=== PATIENT | male | born 1940 | race Caucasian/White ===

== ENCOUNTER → 2018-02-24 | Outpatient (CLI) | payer OTHER ==
[~2018-02-24] MED LIST: DICLOFEN; DIGOPOW2; LISIPOW; OMEPRAZOLE; PRADAXA; TAMSULOSIN; VICODIN
[2018-02-24 10:06] LABS: Hemoglobin 13.6 g/dL (13.5-17.5); Mean Corpuscular Hemoglobin 33.4 pg (28.0-32.0); Mean Corpuscular Hgb Conc. 33.9 g/dL (32.0-36.0); Mean Corpuscular Volume 98.7 fL (80.0-100.0); Platelet Count (auto) 85 10^3/uL (140-450); Red Blood Cells 4.06 10^6/uL (4.5-5.90); Red Cell Distribution Width 14.6 % (11.8-14.3); White Blood Cell 4.1 10^3/uL (4.4-10.8)
[2018-02-24 10:13] LABS: Band Neutrophils % (manual) 0; Basophils % (manual) 0 (0.0-2.0); Blast Cells 0; Eosinophils % (manual) 0 (0-7); Metamyelocytes % 0; Myelocytes % 0; Promyelocytes % 0; Reactive Lymphocytes 0
[2018-02-24 10:14] LABS: Urine Bacteria NONE SEEN /hpf (None Seen); Urine Blood Negative /uL (Negative); Urine Specific Gravity 1.013 (1.001-1.035); Urine WBC 2 /hpf (0 - 3)
[2018-02-24 10:32] LABS: Lymphocytes % (manual) 22 (10.0-50.0); Monocytes % (manual) 15 (0-12)
[2018-02-24 10:34] LABS: Albumin 3.9 g/dL (3.4-5.0); Calcium 9.3 mg/dL (8.5-10.1)
[2018-02-24 10:41] LABS: Bilirubin, Total 1.2 mg/dL (0.2-1.0); Total Protein 8.2 g/dL (6.4-8.2)
[2018-02-24 11:20] LABS: Folate (Folic Acid) 16.54 ng/mL (5.38-24)
== END | disposition home or self-care (01) ==
LOC: LAB 09:01
PROVIDERS: ATTEND Nurse Practitioner
DX: N39.0 Urinary tract infection, site not specified (principal); E78.5 Hyperlipidemia, unspecified
CPT/HCPCS: 36415; 80053; 80061; 81001; 82306; 82607; 82746; 85007; 85027

== ENCOUNTER → 2018-05-03 | Outpatient (CLI) | payer OTHER, MEDICARE | END | disposition home or self-care (01) | LOC: LAB 14:40 | PROVIDERS: ATTEND Internal Medicine | DX: D69.6 Thrombocytopenia, unspecified (principal) | CPT/HCPCS: 86225 ==

== ENCOUNTER → 2018-05-05 | Outpatient (CLI) | payer OTHER, MEDICARE ==
[2018-05-05 16:01] LABS: BUN/Creatinine Ratio 19.1; Calcium 8.3 mg/dL (8.5-10.1); Potassium 3.7 mmol/L (3.5-5.1)
== END | disposition home or self-care (01) ==
LOC: LAB 15:33
PROVIDERS: ATTEND Urology
DX: R97.20 Elevated prostate specific antigen [PSA] (principal)
CPT/HCPCS: 36415; 80048; 84154

== ENCOUNTER → 2018-08-08 | Day surgery (SDC) | payer OTHER ==
[2018-08-04 11:52] LABS: Basophils # (auto) 0 uL; Basophils % (auto) 0.2 % (0.0-2.0); Eosinophils # (auto) 0 uL; Hematocrit 40.5 % (41.0-53.0); Hemoglobin 13.7 g/dL (13.5-17.5); Lymphocytes # (auto) 0.8 uL; Lymphocytes % (auto) 19.3 % (10.0-50.0); Mean Corpuscular Hemoglobin 33.3 pg (28.0-32.0); Mean Corpuscular Hgb Conc. 33.8 g/dL (32.0-36.0); Mean Corpuscular Volume 98.4 fL (80.0-100.0); Monocytes # (auto) 0.7 uL; Monocytes % (auto) 17.1 % (0.0-12.0); Neutrophils # (auto) 2.4 uL; Neutrophils % (auto) 62.4 % (37.0-80.0); Nucleated Red Blood Cells % 0.1 %; Platelet Count (auto) 93 10^3/uL (140-450); Red Blood Cells 4.12 10^6/uL (4.5-5.90); Red Cell Distribution Width 15.6 % (11.8-14.3); Urine Bacteria NONE SEEN /hpf (None Seen); Urine Blood TRACE /uL (Negative); Urine Mucus FEW (None Seen); Urine Specific Gravity 1.014 (1.001-1.035); Urine WBC <1 /hpf (0 - 3); White Blood Cell 3.9 10^3/uL (4.4-10.8)
[2018-08-04 11:56] LABS: INR 1.07 (0.9-1.15); Partial Thromboplastin Time 30.1 sec (23.78-33.04); Prothrombin Time 11.4 sec (9.27-12.13)
[2018-08-04 12:08] LABS: Albumin 4.1 g/dL (3.4-5.0); Potassium 3.9 mmol/L (3.5-5.1)
[2018-08-04 12:11] LABS: BUN/Creatinine Ratio 18.1; Bilirubin, Total 1.1 mg/dL (0.2-1.0); Total Protein 7.8 g/dL (6.4-8.2)
[~2018-08-08] VITALS: Ht 170.2 cm; Wt 90.7 kg
[~2018-08-08] MED LIST changes: +CIPROFLOXACIN 400MG/200ML 200 ML IV ONE; +DABI150C PO; -DICLOFEN; -DIGOPOW2; +HCTZ 25 MG TAB PO ONE; +HYDR25TA4 PO; +HYDROmorphone HCL 2 MG/ML VL IV PRN; +LABETALOL HCL 5 MG/ML ML 20ML VIAL IV ONE; +LISI-646 PO; -LISIPOW; +MAGN200T PO; +NITR0.2D12 TD; +NITROGLYCERIN 0.2MG/HR TOPICAL PATCH TD ONE; +OMEP20TA PO; -OMEPRAZOLE; +ONDANSETRON HCL 4 MG/2 ML VIAL IV ONE; -PRADAXA; +PROPOFOL 10 MG/ML 20 ML IV ONE; +TAMS0.4C36 PO; -TAMSULOSIN; -VICODIN; +ePHEDrine SULFATE 50 MG/ML AMP IV PRN; +fentaNYL CITRATE 100 MCG/2 ML VL ONE
[2018-08-08] MEDS: hydrALAZINE HCL 20 MG/ML VL IV PRN ×3 (14:04→14:51)
[2018-08-08 15:57] VITALS: BP 141/84
== END | disposition home or self-care (01) ==
LOC: SUR 06:58
PROVIDERS: ATTEND Urology
DX: N40.1 Benign prostatic hyperplasia with lower urinary tract symptoms (principal); M79.9 Soft tissue disorder, unspecified; G47.30 Sleep apnea, unspecified; I48.91 Unspecified atrial fibrillation; M19.90 Unspecified osteoarthritis, unspecified site; J44.9 Chronic obstructive pulmonary disease, unspecified; E66.9 Obesity, unspecified; H26.9 Unspecified cataract; Z68.31 Body mass index [BMI] 31.0-31.9, adult
CPT/HCPCS: 36415; 52601; 80053; 81001; 85025; 85610; 85730; 88305; 88342; J0360; J0744; J2704; J3010

== ENCOUNTER 2018-08-21 23:47 | Emergency (ER) | payer OTHER ==
[~2018-08-21] VITALS: Ht 172.7 cm; Wt 90.7 kg
[~2018-08-21 23:47] MED LIST changes: -CIPROFLOXACIN 400MG/200ML 200 ML IV ONE; -HCTZ 25 MG TAB PO ONE; -HYDROmorphone HCL 2 MG/ML VL IV PRN; -LABETALOL HCL 5 MG/ML ML 20ML VIAL IV ONE; -NITROGLYCERIN 0.2MG/HR TOPICAL PATCH TD ONE; -ONDANSETRON HCL 4 MG/2 ML VIAL IV ONE; -PROPOFOL 10 MG/ML 20 ML IV ONE; -ePHEDrine SULFATE 50 MG/ML AMP IV PRN; -fentaNYL CITRATE 100 MCG/2 ML VL ONE
[2018-08-22] VITALS: BP 103/64
== END 2018-08-22 01:51 | disposition home or self-care (01) ==
LOC: MERGE 23:53 → ER 23:53
DX: T83.011A Breakdown (mechanical) of indwelling urethral catheter, initial encounter (principal); N99.89 Other postprocedural complications and disorders of genitourinary system; Y92.89 Other specified places as the place of occurrence of the external cause

== ENCOUNTER → 2018-09-05 | Outpatient (CLI) | payer OTHER ==
[2018-09-05 10:50] LABS: Hematocrit 35.9 % (41.0-53.0); Hemoglobin 12.4 g/dL (13.5-17.5); Mean Corpuscular Hemoglobin 33.2 pg (28.0-32.0); Mean Corpuscular Hgb Conc. 34.5 g/dL (32.0-36.0); Mean Corpuscular Volume 96.1 fL (80.0-100.0); Platelet Count (auto) 108 10^3/uL (140-450); Red Blood Cells 3.73 10^6/uL (4.5-5.90); Red Cell Distribution Width 14.4 % (11.8-14.3); White Blood Cell 3.4 10^3/uL (4.4-10.8)
[2018-09-05 10:59] LABS: Band Neutrophils % (manual) 0; Basophils % (manual) 0 (0.0-2.0); Eosinophils % (manual) 0 (0-7)
[2018-09-05 11:00] LABS: Blast Cells 0; Metamyelocytes % 0; Myelocytes % 0; Promyelocytes % 0; Reactive Lymphocytes 0
[2018-09-05 11:15] LABS: Urine Bacteria NONE SEEN /hpf (None Seen); Urine Blood 2+ /uL (Negative); Urine Specific Gravity 1.019 (1.001-1.035); Urine WBC 67 /hpf (0 - 3)
[2018-09-05 11:29] LABS: Lymphocytes % (manual) 22 (10.0-50.0); Monocytes % (manual) 8 (0-12)
[2018-09-05 11:50] LABS: Potassium 3.7 mmol/L (3.5-5.1)
[2018-09-05 11:56] LABS: Albumin 3.8 g/dL (3.4-5.0); BUN/Creatinine Ratio 26.3; Calcium 8.9 mg/dL (8.5-10.1); Total Protein 7.4 g/dL (6.4-8.2)
[2018-09-05 11:58] LABS: Follicle Stimulating Hormone 13.72 IU/L (1.4-18.1); Prostate Specific Antigen 0.92 ng/mL (0.0-4.0)
== END | disposition home or self-care (01) ==
LOC: LAB 10:30
PROVIDERS: ATTEND Nurse Practitioner
DX: E78.5 Hyperlipidemia, unspecified (principal)
CPT/HCPCS: 36415; 80053; 80061; 81001; 82306; 82607; 83001; 83036; 84153; 84443; 84550; 85007; 85027

== ENCOUNTER → 2018-09-12 | Outpatient (CLI) | payer OTHER ==
[2018-09-12 10:00] LABS: Basophils # (auto) 0 uL; Basophils % (auto) 0.3 % (0.0-2.0); Eosinophils # (auto) 0.1 uL; Eosinophils % (auto) 1.5 % (0.0-7.0); Hematocrit 37.2 % (41.0-53.0); Hemoglobin 12.8 g/dL (13.5-17.5); Lymphocytes # (auto) 0.7 uL; Lymphocytes % (auto) 21.1 % (10.0-50.0); Mean Corpuscular Hemoglobin 33.2 pg (28.0-32.0); Mean Corpuscular Hgb Conc. 34.4 g/dL (32.0-36.0); Mean Corpuscular Volume 96.5 fL (80.0-100.0); Monocytes # (auto) 0.6 uL; Monocytes % (auto) 15.9 % (0.0-12.0); Neutrophils # (auto) 2.1 uL; Neutrophils % (auto) 61.2 % (37.0-80.0); Platelet Count (auto) 92 10^3/uL (140-450); Red Blood Cells 3.86 10^6/uL (4.5-5.90); Red Cell Distribution Width 14.3 % (11.8-14.3); White Blood Cell 3.5 10^3/uL (4.4-10.8)
[2018-09-12 10:32] LABS: Albumin 3.9 g/dL (3.4-5.0); Calcium 8.9 mg/dL (8.5-10.1); Potassium 4.1 mmol/L (3.5-5.1)
[2018-09-12 10:49] LABS: BUN/Creatinine Ratio 22.9; Bilirubin, Total 0.9 mg/dL (0.2-1.0); Total Protein 7.6 g/dL (6.4-8.2)
== END | disposition home or self-care (01) ==
LOC: LAB 09:32
PROVIDERS: ATTEND Internal Medicine
DX: D69.1 Qualitative platelet defects (principal)
CPT/HCPCS: 36415; 80053; 83615; 85025

== ENCOUNTER → 2018-12-06 | Outpatient (CLI) | payer OTHER, MEDICARE ==
[~2018-12-06] MED LIST changes: -DABI150C PO; +DABI150C5 PO; -NITR0.2D12 TD; +NITR0.2D3 TD
== END | disposition home or self-care (01) ==
LOC: LAB 15:19
PROVIDERS: ATTEND Urology
DX: R97.20 Elevated prostate specific antigen [PSA] (principal)
CPT/HCPCS: 84153

== ENCOUNTER → 2019-01-24 | Outpatient (CLI) | payer OTHER, MEDICARE ==
[2019-01-24 13:46] LABS: Basophils # (auto) 0 uL; Basophils % (auto) 0.5 % (0.0-2.0); Eosinophils # (auto) 0 uL; Eosinophils % (auto) 1.1 % (0.0-7.0); Hematocrit 41.1 % (41.0-53.0); Hemoglobin 14.3 g/dL (13.5-17.5); Lymphocytes # (auto) 0.9 uL; Lymphocytes % (auto) 22.5 % (10.0-50.0); Mean Corpuscular Hemoglobin 33.3 pg (28.0-32.0); Mean Corpuscular Hgb Conc. 34.7 g/dL (32.0-36.0); Monocytes # (auto) 0.6 uL; Monocytes % (auto) 15.6 % (0.0-12.0); Neutrophils # (auto) 2.4 uL; Neutrophils % (auto) 60.3 % (37.0-80.0); Platelet Count (auto) 96 10^3/uL (140-450); Red Blood Cells 4.29 10^6/uL (4.5-5.90)
[2019-01-24 14:10] LABS: Albumin 4.2 g/dL (3.4-5.0); Calcium 9.1 mg/dL (8.5-10.1); Potassium 3.9 mmol/L (3.5-5.1)
[2019-01-24 14:13] LABS: BUN/Creatinine Ratio 11.9; Bilirubin, Total 1.2 mg/dL (0.2-1.0); Total Protein 8.1 g/dL (6.4-8.2)
== END | disposition home or self-care (01) ==
LOC: LAB 13:35
PROVIDERS: ATTEND Internal Medicine
DX: D64.9 Anemia, unspecified (principal); N40.0 Benign prostatic hyperplasia without lower urinary tract symptoms
CPT/HCPCS: 36415; 80053; 83615; 85025

== ENCOUNTER → 2019-02-07 | Outpatient (CLI) | payer MEDICARE, OTHER ==
[2019-02-07 11:18] LABS: Hematocrit 40.3 % (41.0-53.0); Hemoglobin 13.7 g/dL (13.5-17.5); Mean Corpuscular Hemoglobin 33.2 pg (28.0-32.0); Mean Corpuscular Volume 97.8 fL (80.0-100.0); Platelet Count (auto) 84 10^3/uL (140-450); Red Blood Cells 4.12 10^6/uL (4.5-5.90); Red Cell Distribution Width 15.3 % (11.8-14.3); White Blood Cell 3.4 10^3/uL (4.4-10.8)
[2019-02-07 11:22] LABS: Basophils % (manual) 0 (0.0-2.0); Blast Cells 0; Metamyelocytes % 0; Myelocytes % 0; Promyelocytes % 0; Reactive Lymphocytes 0
[2019-02-07 11:27] LABS: Potassium 3.9 mmol/L (3.5-5.1)
[2019-02-07 11:35] LABS: Albumin 3.9 g/dL (3.4-5.0); BUN/Creatinine Ratio 13.9; Bilirubin, Total 1.7 mg/dL (0.2-1.0); Calcium 8.9 mg/dL (8.5-10.1); Total Protein 7.8 g/dL (6.4-8.2)
[2019-02-07 11:42] LABS: Ferritin 85.5 ng/mL (10-322)
[2019-02-07 11:43] LABS: Folate (Folic Acid) 20.41 ng/mL (5.38-24)
[2019-02-07 12:57] LABS: Band Neutrophils % (manual) 1; Eosinophils % (manual) 1 (0-7); Lymphocytes % (manual) 18 (10.0-50.0); Monocytes % (manual) 14 (0-12)
== END | disposition home or self-care (01) ==
LOC: LAB 10:19
PROVIDERS: ATTEND Internal Medicine Hematology & Oncology
DX: D69.6 Thrombocytopenia, unspecified (principal)
CPT/HCPCS: 36415; 80053; 82607; 82728; 82746; 83540; 83550; 83615; 85007; 85027

== ENCOUNTER → 2019-02-28 | Outpatient (CLI) | payer OTHER, MEDICARE ==
[2019-02-28 15:00] LABS: Basophils # (auto) 0 uL; Basophils % (auto) 0.6 % (0.0-2.0); Eosinophils # (auto) 0.1 uL; Eosinophils % (auto) 1.1 % (0.0-7.0); Hematocrit 38.3 % (41.0-53.0); Hemoglobin 12.9 g/dL (13.5-17.5); Lymphocytes # (auto) 0.9 uL; Lymphocytes % (auto) 15.3 % (10.0-50.0); Mean Corpuscular Hemoglobin 33.4 pg (28.0-32.0); Mean Corpuscular Hgb Conc. 33.8 g/dL (32.0-36.0); Mean Corpuscular Volume 98.9 fL (80.0-100.0); Monocytes # (auto) 0.9 uL; Monocytes % (auto) 14.1 % (0.0-12.0); Neutrophils # (auto) 4.3 uL; Neutrophils % (auto) 68.9 % (37.0-80.0); Platelet Count (auto) 110 10^3/uL (140-450); Red Blood Cells 3.87 10^6/uL (4.5-5.90); Red Cell Distribution Width 15.1 % (11.8-14.3); White Blood Cell 6.2 10^3/uL (4.4-10.8)
[2019-02-28 15:35] LABS: Potassium 3.7 mmol/L (3.5-5.1)
[2019-02-28 15:44] LABS: Albumin 3.6 g/dL (3.4-5.0); BUN/Creatinine Ratio 12.6; Bilirubin, Total 0.8 mg/dL (0.2-1.0); Calcium 8.5 mg/dL (8.5-10.1); Total Protein 7.5 g/dL (6.4-8.2)
== END | disposition home or self-care (01) ==
LOC: LAB 13:54
PROVIDERS: ATTEND Internal Medicine
DX: D69.6 Thrombocytopenia, unspecified (principal)
CPT/HCPCS: 36415; 80053; 83615; 85025

== ENCOUNTER → 2019-05-22 | Outpatient (CLI) | payer OTHER ==
[2019-05-22 11:06] LABS: Basophils # (auto) 0 uL; Basophils % (auto) 0.4 % (0.0-2.0); Eosinophils # (auto) 0 uL; Eosinophils % (auto) 0.9 % (0.0-7.0); Hematocrit 38.7 % (41.0-53.0); Hemoglobin 13.2 g/dL (13.5-17.5); Lymphocytes # (auto) 0.8 uL; Lymphocytes % (auto) 19.9 % (10.0-50.0); Mean Corpuscular Hemoglobin 33.4 pg (28.0-32.0); Mean Corpuscular Hgb Conc. 34.2 g/dL (32.0-36.0); Mean Corpuscular Volume 97.6 fL (80.0-100.0); Monocytes # (auto) 0.6 uL; Neutrophils # (auto) 2.5 uL; Neutrophils % (auto) 63.8 % (37.0-80.0); Nucleated Red Blood Cells % 0.1 %; Platelet Count (auto) 83 10^3/uL (140-450); Red Blood Cells 3.97 10^6/uL (4.5-5.90); Red Cell Distribution Width 14.7 % (11.8-14.3); White Blood Cell 3.9 10^3/uL (4.4-10.8)
[2019-05-22 11:30] LABS: Potassium 3.6 mmol/L (3.5-5.1)
[2019-05-22 11:44] LABS: Albumin 4.2 g/dL (3.4-5.0); BUN/Creatinine Ratio 18.8; Bilirubin, Total 1.3 mg/dL (0.2-1.0); Calcium 9.2 mg/dL (8.5-10.1); Total Protein 8.1 g/dL (6.4-8.2)
== END | disposition home or self-care (01) ==
LOC: LAB 09:42
PROVIDERS: ATTEND Internal Medicine
DX: D69.6 Thrombocytopenia, unspecified (principal)
CPT/HCPCS: 36415; 80053; 85025

== ENCOUNTER 2019-05-24 09:01 | Emergency (ER) | payer MEDICARE, OTHER ==
[~2019-05-24] VITALS: Ht 172.7 cm; Wt 79.4 kg
[2019-05-24] MEDS: cloNIDine HCL 0.1 MG TAB ONE ×2 (09:21→09:25)
[2019-05-24] MEDS ORDERED: cloNIDine HCL 0.1 MG TAB PO ONE (09:30)
[2019-05-24 09:55] LABS: Basophils # (auto) 0 uL; Basophils % (auto) 0.4 % (0.0-2.0); Eosinophils # (auto) 0 uL; Eosinophils % (auto) 0.5 % (0.0-7.0); Hematocrit 40.5 % (41.0-53.0); Hemoglobin 13.9 g/dL (13.5-17.5); Lymphocytes # (auto) 0.8 uL; Lymphocytes % (auto) 17.9 % (10.0-50.0); Mean Corpuscular Hemoglobin 33.4 pg (28.0-32.0); Mean Corpuscular Hgb Conc. 34.4 g/dL (32.0-36.0); Mean Corpuscular Volume 97.2 fL (80.0-100.0); Monocytes # (auto) 0.6 uL; Monocytes % (auto) 13.5 % (0.0-12.0); Neutrophils # (auto) 3.1 uL; Neutrophils % (auto) 67.7 % (37.0-80.0); Nucleated Red Blood Cells % 0.1 %; Platelet Count (auto) 83 10^3/uL (140-450); Red Blood Cells 4.16 10^6/uL (4.5-5.90); Red Cell Distribution Width 14.8 % (11.8-14.3); White Blood Cell 4.5 10^3/uL (4.4-10.8)
[2019-05-24 10:14] LABS: Albumin 4.4 g/dL (3.4-5.0); Anion Gap 3 (5-15); Blood Urea Nitrogen 23 mg/dL (7-18); Calcium 9.5 mg/dL (8.5-10.1); Carbon Dioxide 32 mmol/L (21-32); Chloride 98 mmol/L (98-107); Glucose 98 mg/dL (74-106); Potassium 3.7 mmol/L (3.5-5.1); Sodium 133 mmol/L (136-145)
[2019-05-24 10:18] LABS: Alanine Aminotransferase 20 U/L (16-61); Alkaline Phosphatase 57 U/L (45-117); Aspartate Aminotransferase 20 U/L (15-37); BUN/Creatinine Ratio 19.7; Bilirubin, Total 1.4 mg/dL (0.2-1.0); GFR African American 77 mL/min; GFR Non-African American 64 mL/min; Total Protein 8.3 g/dL (6.4-8.2)
[2019-05-24] MEDS ORDERED: ASPirin 81 mg TAB PO ONE (12:45)
[2019-05-24 13:17] LABS: INR 1.23 (0.9-1.15)
[2019-05-24 20:00] VITALS: BP 130/93
== END 2019-05-24 20:23 | disposition left against medical advice (07) ==
LOC: ER 09:01
DX: I48.20 Chronic atrial fibrillation, unspecified (principal); I10 Essential (primary) hypertension; Z53.29 Procedure and treatment not carried out because of patient's decision for other reasons
CPT/HCPCS: 36415; 71046; 80053; 83735; 83880; 84443; 84484; 85025; 85610; 85730; 93005

== ENCOUNTER → 2019-06-23 | Day surgery (SDC) | payer OTHER ==
[2019-06-19 12:36] LABS: Hematocrit 39.3 % (41.0-53.0); Hemoglobin 13.6 g/dL (13.5-17.5); Mean Corpuscular Hemoglobin 33.4 pg (28.0-32.0); Mean Corpuscular Hgb Conc. 34.7 g/dL (32.0-36.0); Mean Corpuscular Volume 96.1 fL (80.0-100.0); Platelet Count (auto) 101 10^3/uL (140-450); Red Blood Cells 4.09 10^6/uL (4.5-5.90); Red Cell Distribution Width 14.4 % (11.8-14.3); White Blood Cell 4.6 10^3/uL (4.4-10.8)
[2019-06-19 12:40] LABS: Basophils % (manual) 0 (0.0-2.0); Blast Cells 0; Metamyelocytes % 0; Myelocytes % 0; Promyelocytes % 0; Reactive Lymphocytes 0
[2019-06-19 12:55] LABS: INR 1.07 (0.9-1.15); Partial Thromboplastin Time 30.5 sec (23.64-32.05)
[2019-06-19 13:12] LABS: Band Neutrophils % (manual) 1; Eosinophils % (manual) 1 (0-7); Lymphocytes % (manual) 22 (10.0-50.0); Monocytes % (manual) 16 (0-12)
[~2019-06-23] VITALS: Ht 175.3 cm; Wt 83.9 kg
[~2019-06-23] MED LIST changes: +HYDR-4833 PO; -MAGN200T PO; +SODIUM CHLORIDE LOCK 10 ML ONE; -TAMS0.4C36 PO; +diphenhdrAMINE HCL 50 MG/1 ML VL ONE
[2019-06-23] MEDS: MIDAZOLAM HCL 5 MG/ML-1ML VIAL ONE ×2 (11:37→11:40)
[2019-06-23] MEDS: fentaNYL CITRATE 100 MCG/2 ML VL ONE ×2 (11:37→11:40)
[2019-06-23 12:27] VITALS: BP 126/72
== END | disposition home or self-care (01) ==
LOC: GI 08:50
PROVIDERS: ATTEND Internal Medicine Gastroenterology
DX: R93.3 Abnormal findings on diagnostic imaging of other parts of digestive tract (principal); K57.30 Diverticulosis of large intestine without perforation or abscess without bleeding; I48.20 Chronic atrial fibrillation, unspecified; I10 Essential (primary) hypertension; G47.33 Obstructive sleep apnea (adult) (pediatric); E78.5 Hyperlipidemia, unspecified; J44.9 Chronic obstructive pulmonary disease, unspecified; K21.0 Gastro-esophageal reflux disease with esophagitis; Z79.899 Other long term (current) drug therapy; Z87.891 Personal history of nicotine dependence
CPT/HCPCS: 36415; 45378; 85007; 85027; 85610; 85730; J1200; J2250; J3010; J7030; 99152

== ENCOUNTER → 2020-07-09 | Outpatient (CLI) | payer OTHER ==
[~2020-07-09] MED LIST changes: -NITR0.2D3 TD; +NITR0.2D5 TD; -SODIUM CHLORIDE LOCK 10 ML ONE; -diphenhdrAMINE HCL 50 MG/1 ML VL ONE
[2020-07-09 10:33] LABS: Urine WBC None Seen /hpf (0 - 3)
[2020-07-09 10:40] LABS: Urine Bacteria NONE SEEN /hpf (None Seen); Urine Blood Negative /uL (Negative); Urine Specific Gravity 1.005 (1.001-1.035)
[2020-07-09 10:49] LABS: Basophils # (auto) 0 10 ^3/uL (0-0.2); Basophils % (auto) 0.2 % (0.0-2.0); Eosinophils # (auto) 0 10 ^3/uL (0-0.8); Eosinophils % (auto) 0.5 % (0.0-7.0); Hemoglobin 13.3 g/dL (13.5-17.5); Lymphocytes # (auto) 0.7 10 ^3/uL (0.4-5.4); Lymphocytes % (auto) 16.6 % (10.0-50.0); Mean Corpuscular Hemoglobin 32.8 pg (28.0-32.0); Mean Corpuscular Hgb Conc. 34.2 g/dL (32.0-36.0); Monocytes # (auto) 0.7 10 ^3/uL (0-1.3); Monocytes % (auto) 17.4 % (0.0-12.0); Neutrophils # (auto) 2.6 10 ^3/uL (1.6-8.6); Neutrophils % (auto) 65.3 % (37.0-80.0); Platelet Count (auto) 100 10^3/uL (140-450); Red Blood Cells 4.07 10^6/uL (4.5-5.90); Red Cell Distribution Width 14.1 % (11.8-14.3)
[2020-07-09 10:57] LABS: INR 1.12 (0.9-1.15)
[2020-07-09 11:36] LABS: Potassium 3.9 mmol/L (3.5-5.1)
[2020-07-09 11:47] LABS: Albumin 4.2 g/dL (3.4-5.0); BUN/Creatinine Ratio 19.4; Bilirubin, Total 1.1 mg/dL (0.2-1.0); Total Protein 7.9 g/dL (6.4-8.2)
[2020-07-09 12:18] LABS: Calcium 9.2 mg/dL (8.5-10.1)
== END | disposition home or self-care (01) ==
LOC: LAB 10:22
PROVIDERS: ATTEND Nurse Practitioner
DX: Z01.812 Encounter for preprocedural laboratory examination (principal); Z01.818 Encounter for other preprocedural examination
CPT/HCPCS: 36415; 80053; 81001; 85025; 85610; 85730

== ENCOUNTER → 2020-09-27 | Outpatient (CLI) | payer MEDICARE, OTHER ==
[~2020-09-27] MED LIST changes: -LISI-646 PO; +LISI20TA28 PO
== END | disposition home or self-care (01) ==
LOC: XYW 10:43
PROVIDERS: ATTEND Internal Medicine
DX: Z01.810 Encounter for preprocedural cardiovascular examination (principal); I08.1 Rheumatic disorders of both mitral and tricuspid valves
CPT/HCPCS: 93306

== ENCOUNTER → 2020-11-13 | Outpatient (CLI) | payer OTHER ==
[2020-11-13 10:27] LABS: Hematocrit 38.2 % (41.0-53.0); Hemoglobin 12.9 g/dL (13.5-17.5); Mean Corpuscular Hemoglobin 32.7 pg (28.0-32.0); Mean Corpuscular Hgb Conc. 33.9 g/dL (32.0-36.0); Mean Corpuscular Volume 96.6 fL (80.0-100.0); Red Blood Cells 3.95 10^6/uL (4.5-5.90); Red Cell Distribution Width 14.7 % (11.8-14.3); White Blood Cell 3.3 10^3/uL (4.4-10.8)
[2020-11-13 10:39] LABS: Band Neutrophils % (manual) 0; Basophils % (manual) 0 (0.0-2.0); Blast Cells 0; Metamyelocytes % 0; Myelocytes % 0; Promyelocytes % 0; Reactive Lymphocytes 0
[2020-11-13 10:44] LABS: INR 1.15 (0.9-1.15); Partial Thromboplastin Time 36.2 sec (23.0-31.2)
[2020-11-13 10:46] LABS: Albumin 3.9 g/dL (3.4-5.0); Potassium 4.4 mmol/L (3.5-5.1)
[2020-11-13 10:51] LABS: BUN/Creatinine Ratio 11.1; Bilirubin, Total 1.1 mg/dL (0.2-1.0); Calcium 8.8 mg/dL (8.5-10.1); Total Protein 7.4 g/dL (6.4-8.2)
[2020-11-13 10:56] LABS: Carcinoembryonic Antigen < 0.50 ng/mL (<5.0 OR =); Ferritin 55.6 ng/mL (10-322); Folate (Folic Acid) 17.29 ng/mL (5.38-24)
[2020-11-13 10:59] LABS: Eosinophils % (manual) 1 (0-7); Lymphocytes % (manual) 25 (10.0-50.0); Monocytes % (manual) 14 (0-12)
[2020-11-14 10:49] LABS: Hepatitis A Ab IgM Negative
[2020-11-14 10:50] LABS: Hepatitis B Core IgM Negative; Hepatitis B Surface Antigen Negative (Negative); Hepatitis C Antibody Negative (Negative)
== END | disposition home or self-care (01) ==
LOC: LAB 10:02
PROVIDERS: ATTEND Internal Medicine Gastroenterology
DX: K74.60 Unspecified cirrhosis of liver (principal); R94.5 Abnormal results of liver function studies
CPT/HCPCS: 36415; 80053; 80074; 82105; 82140; 82378; 82728; 82746; 85007; 85027; 85610; 85730

== ENCOUNTER → 2021-02-03 | Outpatient (CLI) | payer OTHER | END | disposition home or self-care (01) | LOC: XYW 13:14 | PROVIDERS: ATTEND Internal Medicine | DX: I08.0 Rheumatic disorders of both mitral and aortic valves (principal); I48.20 Chronic atrial fibrillation, unspecified | CPT/HCPCS: 93306 ==

== ENCOUNTER 2021-02-19 06:49 | Day surgery (SDC) | payer OTHER ==
[~2021-02-19] VITALS: Ht 172.7 cm; Wt 82.6 kg
[~2021-02-19 06:49] MED LIST changes: +AML5T PO; -LISI20TA28 PO; +PROP60CA34 PO; +SACU1TAB PO; +TAMS0.4C36 PO
[2021-02-19] MEDS ORDERED: NITROGLYCERIN 5MG/ML 10ML VIAL IV ONE (09:23)
[2021-02-19] MEDS ORDERED: ANGIOMAX 250 MG VIAL IV ONE (10:00)
[2021-02-19] MEDS ORDERED: fentaNYL CITRATE 100 MCG/2 ML VL ONE (10:01)
[2021-02-19] MEDS ORDERED: HEPARIN SODIUM (PORCINE) 5000 UNITS/ML 1ML VIAL ONE (10:01)
[2021-02-19] MEDS ORDERED: MIDAZOLAM HCL 2MG/2ML 2ml VIAL (1mg/ml) ONE (10:01)
[2021-02-19] MEDS ORDERED: SODIUM CHL 0.9% 0 ML ONE (10:01)
[2021-02-19] MEDS ORDERED: VERAPAMIL 2.5MG/ML INJ 2ML VIAL IV ONE (10:01)
[2021-02-19 10:04] VITALS: BP 133/75
== END 2021-02-19 12:35 | disposition home or self-care (01) ==
LOC: CATH 06:49
PROVIDERS: ATTEND Internal Medicine
DX: R94.39 Abnormal result of other cardiovascular function study (principal); I25.10 Atherosclerotic heart disease of native coronary artery without angina pectoris; G47.30 Sleep apnea, unspecified; Z87.891 Personal history of nicotine dependence; Z80.0 Family history of malignant neoplasm of digestive organs; Z20.822 Contact with and (suspected) exposure to COVID-19
CPT/HCPCS: 93460; C1751; C1760; C1769; C1894; J1644; J2250; J3010; J3490; J7030; U0003; 99152; 99153

== ENCOUNTER → 2021-08-19 | Outpatient (CLI) | payer OTHER ==
[2021-08-19 11:55] LABS: Hematocrit 34.6 % (41.0-53.0); Hemoglobin 11.7 g/dL (13.5-17.5); Mean Corpuscular Hemoglobin 32.5 pg (28.0-32.0); Mean Corpuscular Hgb Conc. 33.8 g/dL (32.0-36.0); Red Cell Distribution Width 14.6 % (11.8-14.3); White Blood Cell 3.3 10^3/uL (4.4-10.8)
[2021-08-19 12:01] LABS: Band Neutrophils % (manual) 0; Basophils % (manual) 0 (0.0-2.0); Blast Cells 0; Metamyelocytes % 0; Myelocytes % 0; Promyelocytes % 0; Reactive Lymphocytes 0
[2021-08-19 12:30] LABS: Albumin 3.6 g/dL (3.4-5.0); Potassium 4.4 mmol/L (3.5-5.1)
[2021-08-19 12:33] LABS: Eosinophils % (manual) 2 (0-7); Lymphocytes % (manual) 21 (10.0-50.0); Monocytes % (manual) 23 (0-12)
[2021-08-19 12:38] LABS: BUN/Creatinine Ratio 21.4; Bilirubin, Total 0.7 mg/dL (0.2-1.0)
[2021-08-19 13:03] LABS: Urine Bacteria NONE SEEN /hpf (None Seen); Urine Blood TRACE /uL (Negative); Urine Mucus FEW (None Seen); Urine Specific Gravity 1.026 (1.001-1.035); Urine WBC 1 /hpf (0 - 3)
== END | disposition home or self-care (01) ==
LOC: LAB 11:31
PROVIDERS: ATTEND Nurse Practitioner
DX: I10 Essential (primary) hypertension (principal); E78.5 Hyperlipidemia, unspecified
CPT/HCPCS: 36415; 80053; 80061; 81001; 84443; 85007; 85027

== ENCOUNTER → 2021-10-23 | Outpatient (CLI) | payer OTHER, MEDICARE ==
[~2021-10-23] MED LIST changes: +LISI20TA28 PO
== END | disposition home or self-care (01) ==
LOC: XYW 12:44
PROVIDERS: ATTEND Internal Medicine
DX: I48.91 Unspecified atrial fibrillation (principal); I07.1 Rheumatic tricuspid insufficiency
CPT/HCPCS: 93306

== ENCOUNTER 2021-10-29 12:36 | Day surgery (SDC) | payer MEDICARE, OTHER ==
[2021-10-24 11:11] LABS: Basophils # (auto) 0 10 ^3/uL (0-0.2); Basophils % (auto) 0.6 % (0.0-2.0); Eosinophils # (auto) 0 10 ^3/uL (0-0.8); Eosinophils % (auto) 0.7 % (0.0-7.0); Hematocrit 36.2 % (41.0-53.0); Hemoglobin 11.9 g/dL (13.5-17.5); Mean Corpuscular Hemoglobin 31.2 pg (28.0-32.0); Mean Corpuscular Hgb Conc. 32.8 g/dL (32.0-36.0); Mean Corpuscular Volume 95.1 fL (80.0-100.0); Neutrophils # (auto) 2.1 10 ^3/uL (1.6-8.6); Neutrophils % (auto) 59.7 % (37.0-80.0); Nucleated Red Blood Cells % 0.1 %; Red Blood Cells 3.81 10^6/uL (4.5-5.90); Red Cell Distribution Width 14.6 % (11.8-14.3); White Blood Cell 3.5 10^3/uL (4.4-10.8)
[2021-10-24 11:15] LABS: Lymphocytes # (auto) 0.9 10 ^3/uL (0.4-5.4); Lymphocytes % (auto) 21.2 % (10.0-50.0); Monocytes # (auto) 0.5 10 ^3/uL (0-1.3); Monocytes % (auto) 17.8 % (0.0-12.0)
[2021-10-24 11:26] LABS: INR 1.18 (0.9-1.15); Partial Thromboplastin Time 31.2 sec (23.6-33.0)
[2021-10-24 11:32] LABS: BUN/Creatinine Ratio 21.8; Calcium 9.4 mg/dL (8.5-10.1); Potassium 4.1 mmol/L (3.5-5.1)
[2021-10-24 11:35] LABS: Total Protein 7.2 g/dL (6.4-8.2)
[~2021-10-29] VITALS: Ht 175.3 cm; Wt 83.9 kg
[~2021-10-29 12:36] MED LIST changes: -HYDR25TA4 PO; +LIDOCAINE VISCOUS 2% 15ML UD ONE; +SODIUM CHLORIDE LOCK 10 ML ONE; +diphenhdrAMINE HCL 50 MG/1 ML VL ONE
[2021-10-29] MEDS: fentaNYL CITRATE 100 MCG/2 ML VL ONE ×2 (13:33→13:36)
[2021-10-29] MEDS: MIDAZOLAM HCL 5 MG/ML-1ML VIAL ONE ×2 (13:33→13:36)
[2021-10-29 14:45] VITALS: BP 133/88
== END 2021-10-29 15:10 | disposition home or self-care (01) ==
LOC: GI 12:36
PROVIDERS: ATTEND Internal Medicine Gastroenterology
DX: K21.9 Gastro-esophageal reflux disease without esophagitis (principal); K29.50 Unspecified chronic gastritis without bleeding; K22.70 Barrett's esophagus without dysplasia; K44.9 Diaphragmatic hernia without obstruction or gangrene; K76.6 Portal hypertension; K31.89 Other diseases of stomach and duodenum; K29.90 Gastroduodenitis, unspecified, without bleeding; I10 Essential (primary) hypertension; J44.9 Chronic obstructive pulmonary disease, unspecified; M19.90 Unspecified osteoarthritis, unspecified site; I48.91 Unspecified atrial fibrillation; Z98.42 Cataract extraction status, left eye; Z87.891 Personal history of nicotine dependence; Z20.822 Contact with and (suspected) exposure to COVID-19; Z80.0 Family history of malignant neoplasm of digestive organs
CPT/HCPCS: 36415; 43239; 80053; 85025; 85610; 85730; 88305; 88312; 88342; J2250; J3010; J7030; U0003; 99152

== ENCOUNTER → 2021-11-10 | Outpatient (CLI) | payer OTHER ==
[~2021-11-10] MED LIST changes: -LIDOCAINE VISCOUS 2% 15ML UD ONE; -SODIUM CHLORIDE LOCK 10 ML ONE; -diphenhdrAMINE HCL 50 MG/1 ML VL ONE
[2021-11-10 12:12] LABS: Hematocrit 36.4 % (41.0-53.0); Mean Corpuscular Hemoglobin 30.9 pg (28.0-32.0); Mean Corpuscular Hgb Conc. 33.1 g/dL (32.0-36.0); Mean Corpuscular Volume 93.4 fL (80.0-100.0); Red Cell Distribution Width 14.6 % (11.8-14.3); White Blood Cell 4.3 10^3/uL (4.4-10.8)
[2021-11-10 12:16] LABS: Basophils % (manual) 0 (0.0-2.0); Blast Cells 0; Eosinophils % (manual) 0 (0-7); Metamyelocytes % 0; Myelocytes % 0; Promyelocytes % 0; Reactive Lymphocytes 0
[2021-11-10 12:25] LABS: Potassium 4.2 mmol/L (3.5-5.1)
[2021-11-10 12:34] LABS: Albumin 3.8 g/dL (3.4-5.0); BUN/Creatinine Ratio 15.2; Bilirubin, Total 0.9 mg/dL (0.2-1.0); Calcium 9.2 mg/dL (8.5-10.1); Total Protein 7.4 g/dL (6.4-8.2)
[2021-11-10 12:47] LABS: Urine Bacteria NONE SEEN /hpf (None Seen); Urine Blood TRACE /uL (Negative); Urine Specific Gravity 1.014 (1.001-1.035); Urine WBC 1 /hpf (0 - 3)
[2021-11-10 12:49] LABS: INR 1.19 (0.9-1.15)
[2021-11-10 13:09] LABS: Band Neutrophils % (manual) 1; Lymphocytes % (manual) 31 (10.0-50.0); Monocytes % (manual) 7 (0-12)
== END | disposition home or self-care (01) ==
LOC: LAB 11:48
PROVIDERS: ATTEND Nurse Practitioner
DX: Z01.818 Encounter for other preprocedural examination (principal)
CPT/HCPCS: 36415; 80053; 81001; 85007; 85027; 85610; 85730

== ENCOUNTER → 2022-01-28 | Outpatient (CLI) | payer OTHER ==
[2022-01-28 09:23] LABS: Basophils # (auto) 0 10 ^3/uL (0-0.2); Basophils % (auto) 0.3 % (0.0-2.0); Eosinophils # (auto) 0 10 ^3/uL (0-0.8); Eosinophils % (auto) 1.1 % (0.0-7.0); Hematocrit 37.8 % (41.0-53.0); Hemoglobin 12.6 g/dL (13.5-17.5); Lymphocytes # (auto) 0.8 10 ^3/uL (0.4-5.4); Lymphocytes % (auto) 21.5 % (10.0-50.0); Mean Corpuscular Hemoglobin 31.4 pg (28.0-32.0); Mean Corpuscular Hgb Conc. 33.4 g/dL (32.0-36.0); Mean Corpuscular Volume 94.1 fL (80.0-100.0); Monocytes # (auto) 0.6 10 ^3/uL (0-1.3); Monocytes % (auto) 17.9 % (0.0-12.0); Neutrophils # (auto) 2.1 10 ^3/uL (1.6-8.6); Neutrophils % (auto) 59.2 % (37.0-80.0); Red Blood Cells 4.02 10^6/uL (4.5-5.90); White Blood Cell 3.6 10^3/uL (4.4-10.8)
[2022-01-28 09:25] LABS: Urine Bacteria NONE SEEN /hpf (None Seen); Urine Blood Negative /uL (Negative); Urine Specific Gravity 1.014 (1.001-1.035); Urine WBC <1 /hpf (0 - 3)
== END | disposition home or self-care (01) ==
LOC: LAB 09:02
PROVIDERS: ATTEND Nurse Practitioner
DX: R31.9 Hematuria, unspecified (principal)
CPT/HCPCS: 36415; 81001; 85025

== ENCOUNTER 2022-07-27 10:00 | Outpatient (CLI) | payer OTHER | END 2022-07-27 10:46 | disposition home or self-care (01) | LOC: XYW 10:00 | PROVIDERS: ATTEND Internal Medicine | DX: I08.8 Other rheumatic multiple valve diseases (principal); I70.0 Atherosclerosis of aorta | CPT/HCPCS: 93306 ==

== ENCOUNTER → 2022-08-25 | Outpatient (CLI) | payer OTHER ==
[2022-08-25 10:08] LABS: Albumin 4.1 g/dL (3.4-5.0); Calcium 9.1 mg/dL (8.5-10.1); Potassium 4.3 mmol/L (3.5-5.1)
[2022-08-25 10:14] LABS: BUN/Creatinine Ratio 16.7 (10.0-20.0); Bilirubin, Total 1.1 mg/dL (0.2-1.0); Total Protein 7.6 g/dL (6.4-8.2)
[2022-08-25 10:19] LABS: Urine Bacteria NONE SEEN /hpf (None Seen); Urine Blood Negative /uL (Negative); Urine Specific Gravity 1.015 (1.001-1.035); Urine WBC 1 /hpf (0 - 3)
[2022-08-25 10:42] LABS: Hematocrit 38.4 % (41.0-53.0); Hemoglobin 13.1 g/dL (13.5-17.5); Mean Corpuscular Hemoglobin 32.4 pg (28.0-32.0); Mean Corpuscular Hgb Conc. 34.2 g/dL (32.0-36.0); Mean Corpuscular Volume 94.8 fL (80.0-100.0); Red Blood Cells 4.05 10^6/uL (4.5-5.90); Red Cell Distribution Width 14.6 % (11.8-14.3)
[2022-08-25 11:52] LABS: Band Neutrophils % (manual) 6; Basophils % (manual) 0 (0.0-2.0); Blast Cells 0; Eosinophils % (manual) 0 (0-7); Lymphocytes % (manual) 24 (10.0-50.0); Metamyelocytes % 0; Monocytes % (manual) 15 (0-12); Myelocytes % 0; Promyelocytes % 0; Reactive Lymphocytes 0
== END | disposition home or self-care (01) ==
LOC: LAB 09:19
PROVIDERS: ATTEND Nurse Practitioner
DX: I10 Essential (primary) hypertension (principal); E78.5 Hyperlipidemia, unspecified
CPT/HCPCS: 36415; 80053; 80061; 81001; 84443; 85007; 85027

== ENCOUNTER 2023-03-28 11:12 | Inpatient (IN) | payer MEDICARE, OTHER ==
[2023-03-27 23:39] VITALS: PULSE 104; RESP 19; O2SAT 96
[~2023-03-28] VITALS: Ht 172.7 cm; Wt 77.7 kg
[~2023-03-28 11:12] MED LIST changes: -LISI20TA28 PO; +LISI20TA56 PO
[2023-03-28] MEDS ORDERED: SODIUM CHLORIDE 0.9% 1,000 ML IVB ONE (11:45)
[2023-03-28 11:59] LABS: Basophils # (auto) 0 10 ^3/uL (0-0.2); Basophils % (auto) 0.1 % (0.0-2.0); Eosinophils # (auto) 0 10 ^3/uL (0-0.8); Hematocrit 37.2 % (41.0-53.0); Hemoglobin 12.2 g/dL (13.5-17.5); Lymphocytes # (auto) 0.3 10 ^3/uL (0.4-5.4); Lymphocytes % (auto) 1.5 % (10.0-50.0); Mean Corpuscular Hemoglobin 31.4 pg (28.0-32.0); Mean Corpuscular Hgb Conc. 32.7 g/dL (32.0-36.0); Mean Corpuscular Volume 95.9 fL (80.0-100.0); Monocytes # (auto) 2.5 10 ^3/uL (0-1.3); Monocytes % (auto) 12.9 % (0.0-12.0); Neutrophils # (auto) 16.7 10 ^3/uL (1.6-8.6); Neutrophils % (auto) 85.5 % (37.0-80.0); Red Blood Cells 3.88 10^6/uL (4.5-5.90); Red Cell Distribution Width 15.1 % (11.8-14.3); White Blood Cell 19.5 10^3/uL (4.4-10.8)
[2023-03-28 12:13] LABS: Alanine Aminotransferase 13 U/L (7-40); Albumin 4.3 g/dL (3.2-4.8); Alkaline Phosphatase 67 U/L (46-116); Anion Gap 8 (5-15); Aspartate Aminotransferase 18 U/L (13-40); Blood Urea Nitrogen 17 mg/dL (9-23); Calcium 9.2 mg/dL (8.7-10.4); Carbon Dioxide 26 mmol/L (20-30); Chloride 103 mmol/L (98-107); Glucose 104 mg/dL (74-106); Magnesium 1.6 mg/dL (1.6-2.6); Potassium 3.8 mmol/L (3.5-5.1); Sodium 137 mmol/L (136-145)
[2023-03-28 12:14] LABS: Bilirubin, Total 2.8 mg/dL (0.2-1.0); INR 1.28 (0.9-1.15); Partial Thromboplastin Time 27.7 SEC (24.5-34.5); Prothrombin Time 13.2 sec (9.3-11.8)
[2023-03-28 12:26] VITALS: PULSE 106; RESP 20; O2SAT 91
[2023-03-28 12:52] LABS: Urine Bacteria NONE SEEN /hpf (None Seen); Urine Blood TRACE /uL (Negative); Urine Clarity Clear (Clear); Urine Color Yellow (Yellow); Urine Mucus FEW (None Seen); Urine Protein, UAD TRACE (Negative); Urine Specific Gravity 1.019 (1.001-1.035); Urine WBC 1 /hpf (0 - 3)
[2023-03-28 14:58] LABS: Rapid Influenza A Negative (Negative); Rapid Influenza B Negative (Negative)
[2023-03-28 14:59] LABS: COVID19 ANTIGEN SOFIA FIA NEGATIVE (NEGATIVE)
[2023-03-28] MEDS ORDERED: levoFLOXacin 500MG 100 ML IV ONE (16:30)
[2023-03-28] MEDS ORDERED: APIX2.5T PO (17:12)
[2023-03-28] MEDS ORDERED: TEMAZEPAM 15 MG CAP PO PRN (17:15)
[2023-03-28] MEDS ORDERED: NITROGLYCERIN 0.4 MG SL TAB SL PRN (17:15)
[2023-03-28] MEDS ORDERED: ALBUTEROL MEDNEB 2.5 mg/3ml NEB NEB PRN (17:15)
[2023-03-28] MEDS ORDERED: MORPHINE SULFATE INJ 2 MG/ml SYRG IV PRN (17:15)
[2023-03-28] MEDS: TAMSULOSIN HYDROCHLORIDE 0.4 MG CAP PO SCH (17:43)
[2023-03-28] MEDS: SODIUM CHLORIDE 0.9% 1,000 ML IV SCH (17:49)
[2023-03-28 18:20] VITALS: PULSE 105; RESP 20; O2SAT 98
[2023-03-28] MEDS: IPRATROPIUM BROM 0.5 MG/2.5ML INH SOL NEB SCH ×2 (18:27→22:49)
[2023-03-28] MEDS: ALBUTEROL MEDNEB 2.5 mg/3ml NEB NEB SCH ×2 (18:27→22:49)
[2023-03-28 18:31] VITALS: BP 121/70; PULSE 105; RESP 20; TEMP 97.6; O2SAT 98
[2023-03-28 18:38] LABS: Triglycerides 32 mg/dL (< 150)
[2023-03-28 18:39] LABS: LDL Cholesterol 50 mg/dL (< 100)
[2023-03-28 18:40] LABS: Cholesterol 96 mg/dL (< 200); HDL Cholesterol 38 mg/dL (40-59)
[2023-03-28 19:20] VITALS: PULSE 116; RESP 18; O2SAT 98
[2023-03-28 21:50] VITALS: BP 135/71; PULSE 75; RESP 17; TEMP 98.7; O2SAT 96
[2023-03-28] MEDS: PROPRANOLOL HCL 60 MG PO SCH (22:00)
[2023-03-28] MEDS ORDERED: SACUBITRIL-VALSARTAN 24mg/26mg TAB PO SCH (22:00)
[2023-03-28] MEDS: APIXABAN 2.5 MG TAB PO SCH (22:10)
[2023-03-28] MEDS: ACETAMINOPHEN 325 MG TAB PO PRN (22:12)
[2023-03-28 22:39] VITALS: RESP 19; O2SAT 96
[2023-03-29] VITALS (16 sets, daily range): BP systolic 127–152; BP diastolic 63–91; PULSE 50–124; RESP 14–20; TEMP 97.9–99.2; O2SAT 94–100
[2023-03-29] MEDS: IPRATROPIUM BROM 0.5 MG/2.5ML INH SOL NEB SCH ×6 (01:43→21:50)
[2023-03-29] MEDS: ALBUTEROL MEDNEB 2.5 mg/3ml NEB NEB SCH ×6 (01:43→21:50)
[2023-03-29 06:56] LABS: Basophils # (auto) 0 10 ^3/uL (0-0.2); Basophils % (auto) 0.2 % (0.0-2.0); Eosinophils # (auto) 0 10 ^3/uL (0-0.8); Hematocrit 35.6 % (41.0-53.0); Hemoglobin 11.4 g/dL (13.5-17.5); Lymphocytes # (auto) 0.7 10 ^3/uL (0.4-5.4); Lymphocytes % (auto) 3.7 % (10.0-50.0); Mean Corpuscular Hemoglobin 30.9 pg (28.0-32.0); Mean Corpuscular Hgb Conc. 32.1 g/dL (32.0-36.0); Mean Corpuscular Volume 96.3 fL (80.0-100.0); Monocytes # (auto) 2.1 10 ^3/uL (0-1.3); Neutrophils % (auto) 84.1 % (37.0-80.0); Red Blood Cells 3.69 10^6/uL (4.5-5.90); Red Cell Distribution Width 15.5 % (11.8-14.3); White Blood Cell 17.8 10^3/uL (4.4-10.8)
[2023-03-29 07:07] LABS: Alanine Aminotransferase 15 U/L (7-40); Albumin 3.9 g/dL (3.2-4.8); Alkaline Phosphatase 61 U/L (46-116); Anion Gap 6 (5-15); Aspartate Aminotransferase 23 U/L (13-40); BUN/Creatinine Ratio 20.7 (10.0-20.0); Bilirubin, Total 1.9 mg/dL (0.2-1.0); Blood Urea Nitrogen 19 mg/dL (9-23); Calcium 8.8 mg/dL (8.7-10.4); Carbon Dioxide 27 mmol/L (20-30); Chloride 102 mmol/L (98-107); Glucose 95 mg/dL (74-106); Potassium 3.7 mmol/L (3.5-5.1); Sodium 135 mmol/L (136-145); Total Protein 6.4 g/dL (5.7-8.2)
[2023-03-29] MEDS: PANTOPRAZOLE 40 MG TAB PO SCH (08:54)
[2023-03-29] MEDS: amLODIPine BESYLATE 5 MG TAB PO SCH (09:00)
[2023-03-29] MEDS: APIXABAN 2.5 MG TAB PO SCH ×2 (09:00→21:33)
[2023-03-29] MEDS: LISINOPRIL 20 MG TAB PO SCH (09:00)
[2023-03-29] MEDS: ACETAMINOPHEN 325 MG TAB PO PRN (09:00)
[2023-03-29] MEDS: cefTRIAXone 1GM/50ML D5W 50 ML IV SCH (09:01)
[2023-03-29] MEDS: SODIUM CHLORIDE 0.9% 1,000 ML IV SCH (09:11)
[2023-03-29] MEDS: AZITHROMYCIN 500MG/ 250ML 250 ML IV SCH (11:30)
[2023-03-29] MEDS ORDERED: methylPREDNISolone SOD SUCC 40 MG/ML VL IV ONE (17:00)
[2023-03-29] MEDS: TAMSULOSIN HYDROCHLORIDE 0.4 MG CAP PO SCH (17:50)
[2023-03-29] MEDS: PROPRANOLOL HCL 60 MG PO SCH (22:00)
[2023-03-30] VITALS (10 sets, daily range): BP systolic 121–139; BP diastolic 60–71; PULSE 85–121; RESP 15–22; TEMP 97.6–98; O2SAT 93–98
[2023-03-30] MEDS: IPRATROPIUM BROM 0.5 MG/2.5ML INH SOL NEB SCH ×4 (02:33→14:19)
[2023-03-30] MEDS: ALBUTEROL MEDNEB 2.5 mg/3ml NEB NEB SCH ×4 (02:34→14:19)
[2023-03-30 05:54] LABS: Basophils # (auto) 0 10 ^3/uL (0-0.2); Basophils % (auto) 0.2 % (0.0-2.0); Eosinophils # (auto) 0 10 ^3/uL (0-0.8); Eosinophils % (auto) 0.1 % (0.0-7.0); Hematocrit 35.1 % (41.0-53.0); Hemoglobin 11.6 g/dL (13.5-17.5); Lymphocytes # (auto) 0.3 10 ^3/uL (0.4-5.4); Lymphocytes % (auto) 5.2 % (10.0-50.0); Mean Corpuscular Hemoglobin 31.7 pg (28.0-32.0); Mean Corpuscular Volume 95.9 fL (80.0-100.0); Monocytes # (auto) 0.6 10 ^3/uL (0-1.3); Monocytes % (auto) 11.6 % (0.0-12.0); Neutrophils # (auto) 4.3 10 ^3/uL (1.6-8.6); Neutrophils % (auto) 82.9 % (37.0-80.0); Nucleated Red Blood Cells % 0.1 %; Red Blood Cells 3.66 10^6/uL (4.5-5.90); Red Cell Distribution Width 15.2 % (11.8-14.3); White Blood Cell 5.2 10^3/uL (4.4-10.8)
[2023-03-30 06:22] LABS: Alanine Aminotransferase 13 U/L (7-40); Albumin 3.9 g/dL (3.2-4.8); Alkaline Phosphatase 54 U/L (46-116); Anion Gap 5 (5-15); Aspartate Aminotransferase 19 U/L (13-40); BUN/Creatinine Ratio 16.9 (10.0-20.0); Blood Urea Nitrogen 13 mg/dL (9-23); Calcium 8.8 mg/dL (8.7-10.4); Carbon Dioxide 26 mmol/L (20-30); Chloride 102 mmol/L (98-107); Glucose 138 mg/dL (74-106); Potassium 4.2 mmol/L (3.5-5.1); Sodium 133 mmol/L (136-145); Total Protein 6.4 g/dL (5.7-8.2)
[2023-03-30] MEDS: cefTRIAXone 1GM/50ML D5W 50 ML IV SCH (09:47)
[2023-03-30] MEDS: AZITHROMYCIN 500MG/ 250ML 250 ML IV SCH (09:47)
[2023-03-30] MEDS: APIXABAN 2.5 MG TAB PO SCH (09:48)
[2023-03-30] MEDS: PANTOPRAZOLE 40 MG TAB PO SCH (09:48)
[2023-03-30] MEDS: LISINOPRIL 20 MG TAB PO SCH (09:48)
[2023-03-30] MEDS ORDERED: methylPREDNISolone SOD SUCC 40 MG/ML VL IV SCH (10:00)
[2023-03-30] MEDS: amLODIPine BESYLATE 5 MG TAB PO SCH (10:00)
[2023-03-30] MEDS ORDERED: LEVO750T8 PO (12:17)
[2023-03-30] MEDS ORDERED: FURO1TAB33 PO (12:17)
[2023-03-30] MEDS ORDERED: PRED20TA2 PO (12:17)
[2023-03-30] MEDS ORDERED: POTA-228 PO (12:17)
[2023-03-30] MEDS ORDERED: ALBUAER3 IN (12:17)
== END 2023-03-30 16:40 | disposition home or self-care (01) | DRG 871 ==
LOC: ER 11:12 → EDBD 11:12 → TELE 17:06 → TELE-WESTW 21:55 → WEST WING 03-29 10:16 → CENTRAL 03-29 11:45
PROVIDERS: ADMIT Internal Medicine; ATTEND Internal Medicine
DX: A41.9 Sepsis, unspecified organism (principal); G92.8 Other toxic encephalopathy; J15.69 Pneumonia due to other Gram-negative bacteria; J96.01 Acute respiratory failure with hypoxia; J44.0 Chronic obstructive pulmonary disease with (acute) lower respiratory infection; E87.1 Hypo-osmolality and hyponatremia; K21.9 Gastro-esophageal reflux disease without esophagitis; I48.91 Unspecified atrial fibrillation; I11.9 Hypertensive heart disease without heart failure; Z20.822 Contact with and (suspected) exposure to COVID-19; I27.20 Pulmonary hypertension, unspecified; D69.6 Thrombocytopenia, unspecified; R91.1 Solitary pulmonary nodule; F03.90 Unspecified dementia, unspecified severity, without behavioral disturbance, psychotic disturbance, mood disturbance, and anxiety; I25.10 Atherosclerotic heart disease of native coronary artery without angina pectoris; Z79.01 Long term (current) use of anticoagulants; Z80.0 Family history of malignant neoplasm of digestive organs; Z87.891 Personal history of nicotine dependence
CPT/HCPCS: 36415; 70450; 71045; 71250; 80053; 80061; 80320; 81001; 82962; 83690; 83735; 83880; 84443; 84484; 85025; 85610; 85730; 87040; 87426; 87804; 93005; 93306; 94640; 96365; G0378; J0696; J1956

== ENCOUNTER 2023-09-25 10:43 | Emergency (ER) | payer OTHER ==
[~2023-09-25] VITALS: Ht 172.7 cm; Wt 73.8 kg
[~2023-09-25 10:43] MED LIST changes: +ALBUAER3 IN; +APIX2.5T PO; -DABI150C5 PO; +FURO1TAB33 PO; +LEVO750T8 PO; -LISI20TA56 PO; +POTA-228 PO; +PRED20TA2 PO
[2023-09-25 11:30] LABS: Hemoglobin 12.6 g/dL (13.5-17.5); Mean Corpuscular Hemoglobin 31.2 pg (28.0-32.0); Mean Corpuscular Hgb Conc. 33.2 g/dL (32.0-36.0); Red Blood Cells 4.04 10^6/uL (4.5-5.90); Red Cell Distribution Width 15.2 % (11.8-14.3); White Blood Cell 3.3 10^3/uL (4.4-10.8)
[2023-09-25 11:34] LABS: Basophils % (manual) 0 (0.0-2.0); Blast Cells 0; Metamyelocytes % 0; Myelocytes % 0; Promyelocytes % 0
[2023-09-25 11:44] LABS: INR 1.16 (0.9-1.15); Partial Thromboplastin Time 31.4 SEC (24.5-34.5); Prothrombin Time 12.2 sec (9.3-11.8)
[2023-09-25 11:47] LABS: Alanine Aminotransferase 14 U/L (7-40); Albumin 4.5 g/dL (3.2-4.8); Alkaline Phosphatase 77 U/L (46-116); Anion Gap 1 (5-15); Aspartate Aminotransferase 17 U/L (13-40); BUN/Creatinine Ratio 17.4 (10.0-20.0); Blood Urea Nitrogen 16 mg/dL (9-23); Calcium 9.9 mg/dL (8.7-10.4); Carbon Dioxide 32 mmol/L (20-30); Chloride 102 mmol/L (98-107); Glucose 91 mg/dL (74-106); Potassium 4.5 mmol/L (3.5-5.1); Sodium 135 mmol/L (136-145)
[2023-09-25 11:48] LABS: Total Protein 7.4 g/dL (5.7-8.2)
[2023-09-25 11:57] LABS: Anisocytosis Slight; Band Neutrophils % (manual) 3; Eosinophils % (manual) 1 (0-7); Lymphocytes % (manual) 22 (10.0-50.0); Monocytes % (manual) 19 (0-12); Platelet Estimate Decreased; Reactive Lymphocytes 1
[2023-09-25] MEDS: SODIUM CHLORIDE 0.9% 500 ML IVB ONE (12:45)
[2023-09-25] MEDS: SODIUM CHLORIDE 0.9% 1,000 ML IV ONE (12:45)
[2023-09-25 12:52] VITALS: PULSE 74; RESP 20; O2SAT 98
[2023-09-25 13:25] VITALS: BP 139/84; PULSE 76; RESP 15; TEMP 98; O2SAT 96
== END 2023-09-25 13:33 | disposition home or self-care (01) ==
LOC: ER 10:43
DX: G30.9 Alzheimer's disease, unspecified (principal); F02.80 Dementia in other diseases classified elsewhere, unspecified severity, without behavioral disturbance, psychotic disturbance, mood disturbance, and anxiety; R29.6 Repeated falls; I48.91 Unspecified atrial fibrillation; I50.9 Heart failure, unspecified; J44.9 Chronic obstructive pulmonary disease, unspecified; E16.2 Hypoglycemia, unspecified; I11.0 Hypertensive heart disease with heart failure; E78.5 Hyperlipidemia, unspecified
CPT/HCPCS: 36415; 70450; 71046; 80053; 82962; 83735; 84443; 84484; 85007; 85027; 85610; 85730; 93005; 96360; 99285; J7030; J7040

== ENCOUNTER → 2023-11-29 | Outpatient (CLI) | payer OTHER ==
[2023-11-29 12:48] LABS: Basophils # (auto) 0 10 ^3/uL (0-0.2); Basophils % (auto) 0.4 % (0.0-2.0); Eosinophils # (auto) 0 10 ^3/uL (0-0.8); Eosinophils % (auto) 1.4 % (0.0-7.0); Hematocrit 36.1 % (41.0-53.0); Hemoglobin 12.1 g/dL (13.5-17.5); Lymphocytes # (auto) 0.8 10 ^3/uL (0.4-5.4); Lymphocytes % (auto) 25.6 % (10.0-50.0); Mean Corpuscular Hemoglobin 31.5 pg (28.0-32.0); Mean Corpuscular Hgb Conc. 33.5 g/dL (32.0-36.0); Monocytes # (auto) 0.6 10 ^3/uL (0-1.3); Monocytes % (auto) 19.7 % (0.0-12.0); Neutrophils # (auto) 1.6 10 ^3/uL (1.6-8.6); Neutrophils % (auto) 52.9 % (37.0-80.0); Red Blood Cells 3.84 10^6/uL (4.5-5.90); Red Cell Distribution Width 15.5 % (11.8-14.3); White Blood Cell 2.9 10^3/uL (4.4-10.8)
== END | disposition home or self-care (01) ==
LOC: LAB 12:17
PROVIDERS: ATTEND Student in an Organized Health Care Education/Training Program
DX: D69.6 Thrombocytopenia, unspecified (principal)
CPT/HCPCS: 36415; 85025

== ENCOUNTER → 2024-03-28 | Outpatient (CLI) | payer OTHER ==
[~2024-03-28] MED LIST changes: -TAMS0.4C36 PO; +TAMS0.4C39 PO
[2024-03-28 15:34] LABS: Basophils # (auto) 0 10 ^3/uL (0-0.2); Basophils % (auto) 0.2 % (0.0-2.0); Eosinophils # (auto) 0 10 ^3/uL (0-0.8); Eosinophils % (auto) 0.7 % (0.0-7.0); Hematocrit 36.3 % (41.0-53.0); Lymphocytes # (auto) 0.9 10 ^3/uL (0.4-5.4); Lymphocytes % (auto) 24.2 % (10.0-50.0); Mean Corpuscular Hgb Conc. 33.1 g/dL (32.0-36.0); Mean Corpuscular Volume 96.6 fL (80.0-100.0); Monocytes # (auto) 0.6 10 ^3/uL (0-1.3); Monocytes % (auto) 15.9 % (0.0-12.0); Neutrophils # (auto) 2.2 10 ^3/uL (1.6-8.6); Nucleated Red Blood Cells % 0.1 %; Platelet Count (auto) 85 10^3/uL (140-450); Red Blood Cells 3.76 10^6/uL (4.5-5.90); Red Cell Distribution Width 15.5 % (11.8-14.3); White Blood Cell 3.7 10^3/uL (4.4-10.8)
[2024-03-28 16:12] LABS: Alanine Aminotransferase 11 U/L (7-40); Albumin 4.4 g/dL (3.2-4.8); Alkaline Phosphatase 75 U/L (46-116); Anion Gap 5 (5-15); BUN/Creatinine Ratio 22.1 (10.0-20.0); Bilirubin, Total 0.8 mg/dL (0.2-1.0); Blood Urea Nitrogen 21 mg/dL (9-23); Calcium 9.7 mg/dL (8.7-10.4); Carbon Dioxide 30 mmol/L (20-31); Chloride 103 mmol/L (98-107); Glucose 101 mg/dL (74-106); Potassium 4.1 mmol/L (3.5-5.1); Sodium 138 mmol/L (136-145); Total Protein 6.6 g/dL (5.7-8.2)
[2024-03-28 16:18] LABS: Aspartate Aminotransferase 12 U/L (13-40)
== END | disposition home or self-care (01) ==
LOC: LAB 14:46
PROVIDERS: ATTEND Student in an Organized Health Care Education/Training Program
DX: D69.6 Thrombocytopenia, unspecified (principal)
CPT/HCPCS: 36415; 80053; 85025

== ENCOUNTER → 2024-05-11 | Outpatient (CLI) | payer OTHER ==
[~2024-05-11] MED LIST changes: +HYDR-4902 PO; +IBUP-1454 PO
[2024-05-11 16:00] LABS: Hematocrit 36.1 % (41.0-53.0); Hemoglobin 12.1 g/dL (13.5-17.5); Mean Corpuscular Hemoglobin 31.8 pg (28.0-32.0); Mean Corpuscular Hgb Conc. 33.5 g/dL (32.0-36.0); Mean Corpuscular Volume 94.9 fL (80.0-100.0); Platelet Count (auto) 106 10^3/uL (140-450); Red Blood Cells 3.81 10^6/uL (4.5-5.90); White Blood Cell 4.5 10^3/uL (4.4-10.8)
[2024-05-11 16:04] LABS: Basophils % (manual) 0 (0.0-2.0); Blast Cells 0; Metamyelocytes % 0; Myelocytes % 0; Promyelocytes % 0; Reactive Lymphocytes 0
[2024-05-11 16:18] LABS: Albumin 4.3 g/dL (3.2-4.8); Alkaline Phosphatase 77 U/L (46-116); Anion Gap 5 (5-15); Aspartate Aminotransferase 15 U/L (13-40); BUN/Creatinine Ratio 19.6 (10.0-20.0); Bilirubin, Total 1.1 mg/dL (0.2-1.0); Blood Urea Nitrogen 19 mg/dL (9-23); Calcium 9.8 mg/dL (8.7-10.4); Carbon Dioxide 28 mmol/L (20-31); Chloride 101 mmol/L (98-107); Glucose 76 mg/dL (74-106); Potassium 4.5 mmol/L (3.5-5.1); Total Protein 7.2 g/dL (5.7-8.2)
[2024-05-11 16:22] LABS: Alanine Aminotransferase < 9 U/L (7-40); Sodium 134 mmol/L (136-145)
[2024-05-11 17:23] LABS: Band Neutrophils % (manual) 4; Eosinophils % (manual) 4 (0-7); Lymphocytes % (manual) 16 (10.0-50.0); Monocytes % (manual) 18 (0-12)
[2024-05-11 17:24] LABS: Platelet Estimate Decreased
== END | disposition home or self-care (01) ==
LOC: LAB 15:43
PROVIDERS: ATTEND Student in an Organized Health Care Education/Training Program
DX: D69.6 Thrombocytopenia, unspecified (principal)
CPT/HCPCS: 36415; 80053; 85007; 85027

== ENCOUNTER 2024-05-13 22:23 | Emergency (ER) | payer OTHER ==
[~2024-05-13] VITALS: Ht 170.2 cm; Wt 59.2 kg
[~2024-05-13 22:23] MED LIST changes: -HYDR-4902 PO; -IBUP-1454 PO
--- NOTE | 2024-05-13 23:10 | DVH ---
CLINICAL INDICATION: Fall/trauma TECHNIQUE: 2 radiographic views of the left shoulder were obtained. Comparison: None FINDINGS/IMPRESSION: There is no evidence of acute fracture or dislocation. Old healed fracture left clavicle The visualized joint space is well maintained. The alignment is anatomical. There is no radiopaque foreign body. HS:Y
--- NOTE | 2024-05-13 23:13 | DVH ---
CLINICAL INDICATION: Fall/trauma TECHNIQUE: 2 radiographic views of the left clavicle were obtained. Comparison: None FINDINGS/IMPRESSION: There is no evidence of acute fracture or dislocation. Old healed fracture mid left clavicle The visualized joint space is well maintained. The alignment is anatomical. There is no radiopaque foreign body. HS:Y
[2024-05-13] MEDS ORDERED: HYDR-4902 PO (23:43)
[2024-05-13] MEDS ORDERED: IBUP-1454 PO (23:43)
--- NOTE | 2024-05-13 23:44 | ED.PDOC ---
Musculoskeletal HPI Comments This patient is a very pleasant 84-year-old male who was brought in by a family member for evaluation of left shoulder and clavicle pain that began yesterday status post mechanical ground level fall. Patient tripped at home and landed on his left shoulder. Patient states the pain worsened today and has continued throughout. Patient denies any fever nausea or vomiting. Vital signs were stable on arrival. Chief Complaint: Upper Extremity Time Seen by MD: 22:28 Reviewed Notes: Nurses Notes Allergies: Coded Allergies: No Known Drug Allergy (Verified Allergy, Unknown, 02/17/21) Home Meds Active Scripts Albuterol Sulfate (VENTOLIN MDI) 90 Mcg Ih, 90 MCG IN Q6HPRN PRN for 30 Days, #30 INH Prov:SAILAJA MUÑOZ MD 03/30/23 Potassium Chloride (Potassium Chloride ER) 10 Meq Tab, 10 MEQ PO QAM for 7 Days, #7 TAB Prov:SAILAJA MUÑOZ MD 03/30/23 Furosemide (Lasix) 20 Mg Tb, 1 TAB PO QAM for 7 Days, #7 TAB 5 Refills Prov:SAILAJA MUÑOZ MD 03/30/23 Prednisone (Prednisone) 20 Mg Tab, 40 MG PO QAM for 5 Days, #5 MG Prov:SAILAJA MUÑOZ MD 03/30/23 Levofloxacin (Levaquin 750 mg) 750 Mg Tab, 1 TAB PO DAILY for 7 Days, #7 TAB Prov:SAILAJA MUÑOZ MD 03/30/23 Reported Medications Apixaban Base (ELIQUIS) 2.5 Mg Tab, 1 TAB PO BID 03/28/23 Amlodipine Besylate (NORVASC TABLET) 5 Mg Tb, 5 MG PO DAILY for BP, TAB 02/17/21 Tamsulosin Hcl (Tamsulosin Hcl) 0.4 Mg Cap, 0.4 MG PO QPM for PROSTATE for 30 Days, MG 02/17/21 Propranolol Hcl (Inderal La) 60 Mg Cap, 60 MG PO HS for A.FIB, CAP 02/17/21 Sacubitril-Valsartan (Entresto 24-26 mg) 1 Tab Tab, 1 TAB PO BID for BP, TAB 02/17/21 Hydrocodone-Acetaminophen ([place] 5/325MG) 1 Tab Tb, 1 TAB PO BID PRN for MODERATE PAIN (4-6 PAIN SCALE), #60 TAB 06/19/19 Omeprazole (Gnp Omeprazole) 20 Mg Tab, 1 TAB PO DAILY, #90 TAB 1 Refill 08/04/18 Nitroglycerin (Nitroglycerin Transdermal) 0.2 Mg/Hr Dis, 0.2 MG TD HS, DIS 08/04/18 Information Source: Patient, Relative (Child) Mode of Arrival: Ambulatory Location: Left Extremity Location: Clavicle, Shoulder Timing: Days Prehospital treatment: None Severity: Moderate Able to Move Extremity: No Bear Weight: Fully Pain: Moderate Hand Dominance: Right Mechanism: Blunt Trauma Circumstances: Fall Onset of Symptoms: After Trauma Symptoms: Pain DVT Risk Factors: NONE Past Medical History PAST MEDICAL HISTORY: AFIB, Angina, CHF, COPD, High Lipids, HTN Surgical History: Denies all surgeries Family History Family History: Family hx of heart jesse, Family hx of HTN Social History Smoker: Non-Smoker Alcohol: Occasionally Drugs: Denies Drug Use Lives In: Home Constitutional: denies: chills, diaphoresis, fatigue, fever, malaise, sweats, weakness, others EENTM: denies: blurred vision, double vision, ear bleeding, ear discharge, ear drainage, ear pain, ear ringing, eye pain, eye redness, hearing loss, mouth pain, mouth swelling, nasal discharge, nose bleeding, nose congestion, nose pain, photophobia, tearing, throat pain, throat swelling, voice changes, others Respiratory: denies: cough, hemoptysis, orthopnea, SOB at rest, shortness of breath, SOB with excertion, stridor, wheezing, others Cardiovascular: denies: chest pain, dizzy spells, diaphoresis, Dyspnea on exertion, edema, irregular heart beat, left arm pain, lightheadedness, palpitations, PND, syncope, others Gastrointestinal: denies: abdomen distended, abdominal pain, blood streaked bowels, constipated, diarrhea, dysphagia, difficulty swallowing, hematemesis, melena, nausea, poor appetite, poor fluid intake, rectal bleeding, rectal pain, vomiting, others Genitourinary: denies: burning, dysuria, flank pain, frequency, hematuria, incontinence, penile discharge, penile sore, pain, testicle pain, testicle swelling, urgency, others Neurological: denies: dizziness, fainting, headache, left sided numbness, left sided weakness, numbness, paresthesia, pre-existing deficit, right sided numbne ss, right sided weakness, seizure, speech problems, tingling, tremors, weakness, others Musculoskeletal: reports: others (Left clavicle and left shoulder pain); denies: back pain, gout, joint pain, joint swelling, muscle pain, muscle stiffness, neck pain Integumetry: denies: bruises, change in color, change in hair/nails, dryness, laceration, lesions, lumps, rash, wounds, others Allergic/Immunocompromised: denies: Difficulty Healing, Frequent Infections, Hives, Itching, others Hematologic/Lymphatic: denies: anemia, blood clots, easy bleeding, easy bruising, swollen glands, others Endocrine: denies: excessive hunger, excessive sweating, excessive thirst, excessive urination, flushing, intolerance to cold, intolerance to heat, unexplained weight gain, unexplained weight loss, others Psychiatric: denies: anxiety, bipolar disorder, depression, hopeless, panic dis order, schizophrenia, sleepless, suicidal, others Physical Exam General Appearance: Moderate Distress (Due to left clavicle and left shoulder pain), Normal HEENT: Normal ENT Inspection, Pharynx Normal, TMs Normal Neck: Full Range of Motion, Non-Tender, Normal, Normal Inspection Respiratory: Chest Non-Tender, Lungs Clear, No Accessory Muscle Use, No Respiratory Distress, Normal Breath Sounds Cardiovascular: No Edema, No JVD, No Murmur, No Gallop, Normal Peripheral Pulses, Regular Rate/Rhythm Breast Exam: Deferred Gastrointestinal: No Organomegaly, Non Tender, No Pulsatile Mass, Normal Bowel Sounds, Soft Genitalia: Deferred Pelvic: Deferred Rectal: Deferred Extremities: Other (Diffuse left clavicle pain. Distal aspect has a mild tenting without crepitus. Anterior and lateral shoulder is diffusely tender to palpation. No edema or ecchymosis noted. Significant reduced range of motion o f the left shoulder.) Neurologic: Alert, No Motor Deficits, Normal Affect, Normal Mood, No Sensory Deficits Cerebellar Function: Normal Reflexes: Normal Skin: Dry, Normal Color, Warm Lymphatic: No Adenopathy Was a procedure done? Was a procedure done?: No Differential Diagnosis EXT Differential Diagnosis: Other (Clavicular fracture, shoulder fracture, shoulder contusions) X-Ray, Labs, Meds, VS Vital Signs Date Time Temp Pulse Resp B/P (MAP) Pulse Ox O2 Delivery O2 Flow Rate FiO2 05/13/24 22:30 98.6 92 18 98/68 (78) 95 X-Ray, Labs, Meds, VS Comment All studies performed the ED were evaluated by me personally. Imaging studies of the clavicle and shoulder were unremarkable for any acute fractures. Patient has some tenting in the left clavicle due to a prior fracture. Advised patient that he suffered a shoulder contusion and additionally, advise utilizing pain medication as needed. Time of 1ST Reevaluation: 23:41 Reevaluation 1ST: Improved Consultation: PCP Patient Education/Counseling: Diagnosis, Treatment Family Education/Counseling: Diagnosis, Treatment Departure 1 Departure Time of Disposition: 23:42 Impression: Primary Impression: Contusion of left shoulder Disposition: 01 HOME / SELF CARE / HOMELESS Condition: Stable Additional Instructions: Advised patient utilize pain medication as needed for symptomatic relief. Patient was not given a sling today as there was concerned the patient may develop a frozen shoulder concern. Patient should utilize and move the shoulder as much as can be tolerated until complete resolution. e-Prescriptions Hydrocodone-Acetaminophen (Hydrocodone Bitartrate/AC 5-325 mg) 1 Tab Tab 1 TAB PO Q6HP PRN, #15 TAB Prov: JUSTO FERRARI PAC 05/13/24 Ibuprofen (Ibuprofen) 600 Mg Tab 1 TAB PO Q6HP PRN, #20 TAB Prov: JUSTO FERRARI PAC 05/13/24 Discharged With: Self, Relative Critical Care Note Critical Care Time?: No Stability Stability form required: No Heart Score Heart Score: Heart Score Response (Comments) Value History N/A 0 EKG N/A 0 Age N/A 0 Risk Factors N/A 0 Troponin N/A 0 Total 0 JUSTO FERRARI PAC May 13, 2024 23:44
[2024-05-14] VITALS: BP 111/63; PULSE 93; RESP 18; O2SAT 96; O2SAT 98
[2024-05-14] MEDS: HYDROcodone-ACET 10/325MG TAB PO ONE (00:09)
== END 2024-05-14 00:20 | disposition home or self-care (01) ==
LOC: ER 22:23
DX: S40.012A Contusion of left shoulder, initial encounter (principal); J44.9 Chronic obstructive pulmonary disease, unspecified; E78.5 Hyperlipidemia, unspecified; I11.0 Hypertensive heart disease with heart failure; I50.89 Other heart failure; Z79.899 Other long term (current) drug therapy
CPT/HCPCS: 73000; 73030

== ENCOUNTER 2024-05-15 06:32 | Inpatient (IN) | payer OTHER ==
[~2024-05-15] VITALS: Ht 172.7 cm; Wt 69.9 kg
[~2024-05-15 06:32] MED LIST changes: +HYDR-4902 PO; +IBUP-1454 PO
--- NOTE | 2024-05-15 07:09 | ECG ---
[facility] Test Date: 2024-05-15 Test Time: 06:53:18 Pat Name: KALYAN DIAZ Department: ER Room: 0286T Gender: M Network Desktop Support Specialist: : 1940 Requested By: CAROL CARLOS Order Number: [id number] Reading MD: Bulmaro Walter Measurements Intervals [place] Rate: 91 P: 0 MS: 0 QRS: 25 QRSD: 119 T: 52 QT: 386 QTc: 475 Interpretive Statements Atrial fibrillation Ventricular premature complex Nonspecific intraventricular conduction delay Low voltage, extremity and precordial leads Probable anteroseptal infarct, old Artifact in lead(s) I,II,III,aVR,aVL,aVF,V2,V3 Electronically Signed On 05-18-2024 16:29:51 PST by Bulmaro Walter Please click the below link to view image of tracing.
--- NOTE | 2024-05-15 09:22 | ED.PDOC ---
History of Present Illness HPI Comments 84 year old male brought in by EMS presents to the ED with a chief complaint of RT hip pain s/p fall onset yesterday around 22:00. Per EMS,patient was trying to get out of wheelchair when he fell and landed on RT hip, fall was witnessed by son. Patient denies LOC, head injury, SOB, chest pain, blurry vision, headache. PMHx CHF, COPD, A-fib, angina, HTN, HLD, GERD. No other symptoms or modifying factors present at this time. Chief Complaint: Fall Injury Time Seen by MD: 08:43 Reviewed Notes: Medications, Allergies Allergies: Coded Allergies: No Known Drug Allergy (Verified Allergy, Unknown, 02/17/21) Home Meds Active Scripts Hydrocodone-Acetaminophen (Hydrocodone Bitartrate/AC 5-325 mg) 1 Tab Tab, 1 TAB PO Q6HP PRN, #15 TAB Prov:JUSTO FERRARI PAC 05/13/24 Ibuprofen (Ibuprofen) 600 Mg Tab, 1 TAB PO Q6HP PRN, #20 TAB Prov:JUSTO FERRARI PAC 05/13/24 Albuterol Sulfate (VENTOLIN MDI) 90 Mcg Ih, 90 MCG IN Q6HPRN PRN for 30 Days, #30 INH Prov:SAILAJA MUÑOZ MD 03/30/23 Potassium Chloride (Potassium Chloride ER) 10 Meq Tab, 10 MEQ PO QAM for 7 Days, #7 TAB Prov:SAILAJA MUÑOZ MD 03/30/23 Furosemide (Lasix) 20 Mg Tb, 1 TAB PO QAM for 7 Days, #7 TAB 5 Refills Prov:SAILAJA MUÑOZ MD 03/30/23 Prednisone (Prednisone) 20 Mg Tab, 40 MG PO QAM for 5 Days, #5 MG Prov:SAILAJA MUÑOZ MD 03/30/23 Levofloxacin (Levaquin 750 mg) 750 Mg Tab, 1 TAB PO DAILY for 7 Days, #7 TAB Prov:SAILAJA MUÑOZ MD 03/30/23 Reported Medications Apixaban Base (ELIQUIS) 2.5 Mg Tab, 1 TAB PO BID 03/28/23 Amlodipine Besylate (NORVASC TABLET) 5 Mg Tb, 5 MG PO DAILY for BP, TAB 02/17/21 Tamsulosin Hcl (Tamsulosin Hcl) 0.4 Mg Cap, 0.4 MG PO QPM for PROSTATE for 30 Days, MG 02/17/21 Propranolol Hcl (Inderal La) 60 Mg Cap, 60 MG PO HS for A.FIB, CAP 02/17/21 Sacubitril-Valsartan (Entresto 24-26 mg) 1 Tab Tab, 1 TAB PO BID for BP, TAB 02/17/21 Hydrocodone-Acetaminophen ([place] 5/325MG) 1 Tab Tb, 1 TAB PO BID PRN for MODERATE PAIN (4-6 PAIN SCALE), #60 TAB 06/19/19 Omeprazole (Gnp Omeprazole) 20 Mg Tab, 1 TAB PO DAILY, #90 TAB 1 Refill 08/04/18 Nitroglycerin (Nitroglycerin Transdermal) 0.2 Mg/Hr Dis, 0.2 MG TD HS, DIS 08/04/18 Information Source: Patient, Emergency Med Personnel Mode of Arrival: EMS Severity: Moderate Timing: Hours Duration: Since onset Prehospital treatment: None Past Medical History PAST MEDICAL HISTORY: AFIB, Angina, CHF, COPD, GERD, High Lipids, HTN Surgical History: Denies all surgeries Family History Family History: Family hx of heart jesse, Family hx of HTN Social History Smoker: Non-Smoker Alcohol: Occasionally Drugs: Denies Drug Use Lives In: Home Constitutional: denies: chills, diaphoresis, fatigue, fever, malaise, sweats, weakness, others EENTM: denies: blurred vision, double vision, ear bleeding, ear discharge, ear drainage, ear pain, ear ringing, eye pain, eye redness, hearing loss, mouth pain, mouth swelling, nasal discharge, nose bleeding, nose congestion, nose pain, photophobia, tearing, throat pain, throat swelling, voice changes, others Respiratory: denies: cough, hemoptysis, orthopnea, SOB at rest, shortness of breath, SOB with excertion, stridor, wheezing, others Cardiovascular: denies: chest pain, dizzy spells, diaphoresis, Dyspnea on exertion, edema, irregular heart beat, left arm pain, lightheadedness, palpitations, PND, syncope, others Gastrointestinal: denies: abdomen distended, abdominal pain, blood streaked bowels, constipated, diarrhea, dysphagia, difficulty swallowing, hematemesis, melena, nausea, poor appetite, poor fluid intake, rectal bleeding, rectal pain, vomiting, others Genitourinary: denies: burning, dysuria, flank pain, frequency, hematuria, incontinence, penile discharge, penile sore, pain, testicle pain, testicle swelling, urgency, others Neurological: denies: dizziness, fainting, headache, left sided numbness, left sided weakness, numbness, paresthesia, pre-existing deficit, right sided numbness, right sided weakness, seizure, speech problems, tingling, tremors, weakness, others Musculoskeletal: reports: others (RT hip pain); denies: back pain, gout, joint pain, joint swelling, muscle pain, muscle stiffness, neck pain Integumetry: denies: bruises, change in color, change in hair/nails, dryness, laceration, lesions, lumps, rash, wounds, others Allergic/Immunocompromised: denies: Difficulty Healing, Frequent Infections, Hives, Itching, others Endocrine: denies: excessive hunger, excessive sweating, excessive thirst, excessive urination, flushing, intolerance to cold, intolerance to heat, unexplained weight gain, unexplained weight loss, others Psychiatric: denies: anxiety, bipolar disorder, depression, hopeless, panic disorder, schizophrenia, sleepless, suicidal, others All Other Systems: Reviewed and Negative Physical Exam General Appearance: Moderate Distress, Normal HEENT: Normal ENT Inspection, PERRL/EOMI, Other (HARD OF HEARING) Neck: Full Range of Motion, Non-Tender, Normal, Normal Inspection Respiratory: Chest Non-Tender, Lungs Clear, No Accessory Muscle Use, No Respiratory Distress, Normal Breath Sounds Cardiovascular: No Edema, No JVD, No Murmur, No Gallop, Normal Peripheral Pulses, Regular Rate/Rhythm Breast Exam: Deferred Gastrointestinal: No Organomegaly, Non Tender, No Pulsatile Mass, Normal Bowel Sounds, Soft Genitalia: Deferred Pelvic: Deferred Rectal: Deferred Extremities: Decreased range of motion, No pedal edema, Tender Neurologic: Alert, Depressed Affect, Disoriented, Motor Weakness Cerebellar Function: Unable to Test Reflexes: NOT DONE Skin: Dry, Normal Color, Warm Peripheral Pulses: 1+ carotid (R), 1+ carotid (L) Lymphatic: No Adenopathy Was a procedure done? Was a procedure done?: No EKG EKG : Pulse Rate (adult): 91 [place]: Normal Cardiac Rhythm: Afib, PVC's Differential Dx Considerations may include: HIP FRACTURE ATRIAL FIBRILLATION GENERALIZED WEAKNESS ANEMIA CHF COPD HYPERTENSION X-Ray, Labs, Meds, VS Vital Signs Date Time Temp Pulse Resp B/P (MAP) Pulse Ox O2 Delivery O2 Flow Rate FiO2 05/15/24 16:00 94 05/15/24 16:00 93 20 123/66 (85) 94 05/15/24 14:00 97 15 131/87 (102) 96 05/15/24 13:10 91 05/15/24 12:00 88 05/15/24 12:00 88 21 144/84 (104) 95 05/15/24 10:00 108 16 139/83 (101) 97 05/15/24 08:16 Room Air* 0 21 05/15/24 08:00 99.1 118 16 150/79 (102) 94 99.1 05/15/24 08:00 101 05/15/24 06:53 91 05/15/24 06:45 97.7 97 16 138/67 (90) 98 Lab Test 05/15/24 16:11 05/15/24 10:14 05/15/24 08:00 Range/Units B-Type Natriuretic Peptide 474.00 0-100 pg/mL White Blood Count 4.4 4.4-10.8 10^3/uL Red Blood Count 3.59 L 4.5-5.90 10^6/uL Hemoglobin 11.3 L 13.5-17.5 g/dL Hematocrit 33.7 L 41.0-53.0 % Mean Corpuscular Volume 93.9 80.0-100.0 fL Mean Corpuscular Hemoglobin 31.6 28.0-32.0 pg Mean Corpuscular Hemoglobin Concent 33.7 32.0-36.0 g/dL Red Cell Distribution Width 14.6 H 11.8-14.3 % Platelet Count 92 L 140-450 10^3/uL Mean Platelet Volume 10.1 6.9-10.8 fL Neutrophils (%) (Auto) 37.0-80.0 % Lymphocytes (%) (Auto) 10.0-50.0 % Monocytes (%) (Auto) 0.0-12.0 % Basophils (%) (Auto) 0.0-2.0 % Neutrophils # (Auto) 1.6-8.6 10 ^3/uL Lymphocytes # (Auto) 0.4-5.4 10 ^3/uL Monocytes # (Auto) 0-1.3 10 ^3/uL Differential Total Cells Counted 100.0 100 Neutrophils % (Manual) 65 37.0-80.0 Band Neutrophils % (Manual) 0 Lymphocytes % (Manual) 13 10.0-50.0 Monocytes % (Manual) 18 H 0-12 Eosinophils % (Manual) 4 0-7 Basophils % (Manual) 0 0.0-2.0 Metamyelocytes % (manual) 0 Myelocytes % (Manual) 0 Promyelocytes % (Manual) 0 Blast Cells % (Manual) 0 Reactive Lymphocytes 0 Platelet Estimate Decreased Red Blood Cell Morphology Normal Prothrombin Time 12.3 H 9.3-11.8 sec Prothrombin Time INR 1.18 H 0.9-1.15 Activated Partial Thromboplast Time 32.6 24.5-34.5 SEC Sodium Level 136 136-145 mmol/L Potassium Level 3.7 3.5-5.1 mmol/L Chloride Level 103 98-107 mmol/L Carbon Dioxide Level 24 20-31 mmol/L Anion Gap 9 5-15 Blood Urea Nitrogen 20 9-23 mg/dL Creatinine 0.72 0.700-1.30 mg/dL Glomerular Filtration Rate Calc 90 >90 mL/min BUN/Creatinine Ratio 27.8 H 10.0-20.0 Serum Glucose 91 74-106 mg/dL Calcium Level 9.4 8.7-10.4 mg/dL Magnesium Level 2.0 1.6-2.6 mg/dL Total Bilirubin 1.4 H 0.2-1.0 mg/dL Aspartate Amino Transferase (AST) 16 13-40 U/L Alanine Aminotransferase (ALT) < 9 7-40 U/L Alkaline Phosphatase 74 46-116 U/L Troponin I High Sensitivity < 3 L </=54 ng/L Total Protein 6.6 5.7-8.2 g/dL Albumin 4.2 3.2-4.8 g/dL Urine Color Yellow Yellow Urine Clarity Clear Clear Urine pH 5.5 5.0-9.0 Urine Specific [place] 1.027 1.001-1.035 Urine Protein Trace H Negative Urine Ketones 1+ H Negative Urine Blood Negative Negative /uL Urine Nitrite Negative Negative Urine Bilirubin Negative Negative Urine Urobilinogen 4 H Negative mg/dL Urine Leukocyte Esterase Negative Negative /uL Urine RBC 2 0 - 3 /hpf Urine WBC <1 0 - 3 /hpf Urine Squamous Epithelial Cells None seen <5 /hpf Urine Bacteria None seen None Seen /hpf Urine Mucus Few None Seen Urine Glucose Normal Normal mg/dL Current Medications Medications (Trade) Dose Ordered Sig/Amanda Route Start Time Stop Time Status Last Admin Sodium Chloride 1,000 ml @ 150 mls/hr Q6H40M ONCE IV 05/15/24 10:15 05/15/24 16:54 DC 05/15/24 10:48 Sodium Chloride 1,000 ml @ 60 mls/hr [id number] IV 05/15/24 14:00 05/15/24 15:30 [place] [id number] Ph: [phone] DIAGNOSTIC IMAGING Diagnostic Imaging Report : [id number] Signed PATIENT: KALYAN DIAZ ACCT: [id number] UNIT: [id number] : 1940 LOC: ER ROOM / BED: / AGE / SEX: 84 / M ADM STATUS: REG ER SERVICE 1001 ORDERING PHYSICIAN: CAROL CARLOS MD PROCEDURE(s): RHPCT - CT R HIP WITH OUT CONTRAST REASON: fall ORDER NUMBER(s): [id number], ACCESSION NUMBER(s): [id number] CLINICAL INDICATION: 84 years old, Male; fall. TECHNIQUE: Noncontrast CT of the right hip was performed. Sagittal and coronal reformatted images are provided. COMPARISON: CT CHEST WITHOUT CONTRAST on DOS: 03/29/23 CT Dose: CTDI volume is 10.51 mGy. Dose-length product is 314.08 mGy*cm FINDINGS: There is an acute comminuted fracture of the right greater trochanter. There is mild right hip joint space narrowing. Right hip joint effusion. Regional soft tissues are unremarkable. IMPRESSION: 1. Acute comminuted right greater trochanter fracture. All CT scans at this medical facility are performed using dose modulation techniques as appropriate to a performed exam including the following: Automated exposure control was utilized; adjustment of the MA and/or KV according to patient size; and use of iterative reconstruction technique. ATED BY: PATRICK SR MD DICTATED DATE/TIME: 05/15/241116 SIGNED BY: PATRICK SR MD SIGNED DATE/TIME: 05/15/241116 CC: [place] [id number] Ph: [phone] DIAGNOSTIC IMAGING Diagnostic Imaging Report : [id number] Signed PATIENT: KALYAN DIAZ ACCT: [id number] UNIT: [id number] : 1940 LOC: ER ROOM / BED: / AGE / SEX: 84 / M ADM STATUS: REG ER SERVICE 1001 ORDERING PHYSICIAN: CAROL CARLOS MD PROCEDURE(s): CXRP - CHEST PORTABLE REASON: chf ORDER NUMBER(s): [id number], ACCESSION NUMBER(s): [id number] CHEST RADIOGRAPH Indication: chf Technique: Single frontal view of the chest was obtained COMPARISON: XY CHEST PORTABLE on DOS: 03/28/23 FINDINGS: Lines and Tubes: None Lungs: Clear Pleura: No effusion. No pneumothorax. Cardiomediastinal contours: Unremarkable Bones: Unremarkable IMPRESSION: No acute disease. ATED BY: BRADEN DURHAM MD DICTATED DATE/TIME: 05/15/241105 SIGNED BY: BRADEN DURHAM MD SIGNED DATE/TIME: 05/15/241105 CC: X-Ray, Labs, Meds, VS Comment COURSE IN THE EMERGENCY DEPARTMENT EVENTFUL PATIENT CAME IN AFTER A FALL FROM A WAS WHEELCHAIR IS COMPLAINING OF RIGHT HIP PAIN PATIENT IS ON ELIQUIS CHEST X-RAY IS NORMAL EKG SHOWS ATRIAL FIBRILLATION 91 WITH A MULTIPLE PVCS CBC 4400 WITH 65% NEUTROPHILS H&H 1134 AND A PLATELET TRANS IS 92 CMP NORMAL URINE SHOWS 1+ KETONES AND LEFT-SIDED INR 1.18 MAGNESIUM 2.[address] PELVIS SHOWS ACUTE COMMINUTED FRACTURE OF THE RIGHT GREATER TROCHANTER PATIENT WILL BE ADMITTED FOR FURTHER CARE Time of 1ST Reevaluation: 09:13 Reevaluation 1ST: Unchanged Time of 2ND Reevaluation: 13:00 Reevaluation 2ND: Unchanged Patient Education/Counseling: Diagnosis, Treatment, Prognosis Family Education/Counseling: Diagnosis, Treatment, Prognosis, No Family Present Additional Information The following tests were ordered, and results were reviewed by me: EKG-x2, TROP, CBC, CMP, PTPTT, XY CHEST, UA, MAGNESIUM, CT R HIP WO CONTRAST Additional Information was gathered from interviewing the following independent historians: EMS I reviewed and agreed with the following test results read by other providers: XY CHEST, CT R HIP WO CONTRAST I discussed treatment and results with medical personnel and patient Departure 1 Departure Time of Disposition: 13:02 Impression: Primary Impression: Fall at home Qualified Codes: W19.XXXA - Unspecified fall, initial encounter; Y92.009 - Unspecified place in unspecified non-institutional (private) residence as the place of occurrence of the external cause Additional Impressions: Atrial fibrillation Qualified Codes: I48.11 - Longstanding persistent atrial fibrillation PVCs (premature ventricular contractions) Pancytopenia Alzheimers disease History of CHF (congestive heart failure) History of COPD Multiple falls Ruled Out: Pneumonia Disposition: ADMITTED INPATIENT Admit to: Tele Condition: Serious Critical Care Note Critical Care Time?: No Stability Stability form required: Yes Unstable for transfer: Telemetry monitoring (Telemetry monitoring required), Requires medication (Requires Med for stabilization) Comments ORTHOPEDIC CONSULTATION Heart Score Heart Score: Heart Score Response (Comments) Value History Slightly Suspicious 0 EKG Repolarization Disturb 1 Age >65 2 Risk Factors >3 or Hx ASHD 2 Troponin Normal limit 0 Total 5 I personally scribed for CAROL CARLOS MD ([email or web address]) on 05/15/24 at 09:22. Electronically submitted by Daina Pizarro ([email or web address]). I personally scribed for CAROL CARLOS MD ([email or web address]) on 05/15/24 at 10:07. Electronically submitted by Daina Pizarro ([email or web address]). I personally scribed for CAROL CARLOS MD ([email or web address]) on 05/15/24 at 11:23. Electronically submitted by Daina Pizarro ([email or web address]). I personally scribed for CAROL CARLOS MD ([email or web address]) on 05/15/24 at 17:04. Electronically submitted by Daina Pizarro ([email or web address]). CAROL CARLOS MD May 15, 2024 09:22
[2024-05-15 10:41] LABS: Hematocrit 33.7 % (41.0-53.0); Hemoglobin 11.3 g/dL (13.5-17.5); Mean Corpuscular Hemoglobin 31.6 pg (28.0-32.0); Mean Corpuscular Hgb Conc. 33.7 g/dL (32.0-36.0); Mean Corpuscular Volume 93.9 fL (80.0-100.0); Platelet Count (auto) 92 10^3/uL (140-450); Red Blood Cells 3.59 10^6/uL (4.5-5.90); Red Cell Distribution Width 14.6 % (11.8-14.3); White Blood Cell 4.4 10^3/uL (4.4-10.8)
[2024-05-15 10:45] LABS: Urine Bacteria None Seen /hpf (None Seen)
[2024-05-15] MEDS: SODIUM CHLORIDE 0.9% 1,000 ML IV ONE (10:48)
[2024-05-15 10:56] LABS: INR 1.18 (0.9-1.15); Partial Thromboplastin Time 32.6 SEC (24.5-34.5); Prothrombin Time 12.3 sec (9.3-11.8)
[2024-05-15 10:57] LABS: Band Neutrophils % (manual) 0; Basophils % (manual) 0 (0.0-2.0); Blast Cells 0; Metamyelocytes % 0; Myelocytes % 0; Promyelocytes % 0; Reactive Lymphocytes 0
[2024-05-15 11:00] LABS: Albumin 4.2 g/dL (3.2-4.8); Alkaline Phosphatase 74 U/L (46-116); Anion Gap 9 (5-15); Aspartate Aminotransferase 16 U/L (13-40); BUN/Creatinine Ratio 27.8 (10.0-20.0); Blood Urea Nitrogen 20 mg/dL (9-23); Calcium 9.4 mg/dL (8.7-10.4); Carbon Dioxide 24 mmol/L (20-31); Chloride 103 mmol/L (98-107); Glucose 91 mg/dL (74-106); Potassium 3.7 mmol/L (3.5-5.1)
[2024-05-15 11:01] LABS: Total Protein 6.6 g/dL (5.7-8.2)
[2024-05-15 11:02] LABS: Alanine Aminotransferase < 9 U/L (7-40); Bilirubin, Total 1.4 mg/dL (0.2-1.0); Sodium 136 mmol/L (136-145)
--- NOTE | 2024-05-15 11:09 | DVH ---
CHEST RADIOGRAPH Indication: chf Technique: Single frontal view of the chest was obtained COMPARISON: XY CHEST PORTABLE on DOS: 03/28/23 FINDINGS: Lines and Tubes: None Lungs: Clear Pleura: No effusion. No pneumothorax. Cardiomediastinal contours: Unremarkable Bones: Unremarkable IMPRESSION: No acute disease.
[2024-05-15 11:17] LABS: Urine Blood Negative /uL (Negative); Urine Clarity Clear (Clear); Urine Color Yellow (Yellow); Urine Mucus FEW (None Seen); Urine Protein, UAD TRACE (Negative); Urine Specific Gravity 1.027 (1.001-1.035); Urine Squamous Epithelial Cell None Seen /hpf (<5); Urine Urobilinogen 4 mg/dL (Negative); Urine WBC <1 /hpf (0 - 3); Urine pH 5.5 (5.0-9.0)
--- NOTE | 2024-05-15 11:19 | DVH ---
CLINICAL INDICATION: 84 years old, Male; fall. TECHNIQUE: Noncontrast CT of the right hip was performed. Sagittal and coronal reformatted images are provided. COMPARISON: CT CHEST WITHOUT CONTRAST on DOS: 03/29/23 CT Dose: CTDI volume is 10.51 mGy. Dose-length product is 314.08 mGy*cm FINDINGS: There is an acute comminuted fracture of the right greater trochanter. There is mild right hip joint space narrowing. Right hip joint effusion. Regional soft tissues are unremarkable. IMPRESSION: 1. Acute comminuted right greater trochanter fracture. All CT scans at this medical facility are performed using dose modulation techniques as appropriate t o a performed exam including the following: Automated exposure control was utilized; adjustment of th e MA and/or KV according to patient size; and use of iterative reconstruction technique.
[2024-05-15 11:39] LABS: Eosinophils % (manual) 4 (0-7); Lymphocytes % (manual) 13 (10.0-50.0); Monocytes % (manual) 18 (0-12); Platelet Estimate Decreased
[2024-05-15 11:40] LABS: RBC Morphology Normal
[2024-05-15] MEDS ORDERED: ONDANSETRON HCL 4 MG/2 ML VIAL IV PRN (14:00)
[2024-05-15] MEDS ORDERED: hydrALAZINE HCL 20 MG/ML VL IV PRN (14:00)
[2024-05-15] MEDS ORDERED: DOCUSATE SOD 100 MG CAP PO PRN (14:00)
[2024-05-15] MEDS ORDERED: HYDROcodone-ACET 5/325MG TAB PO PRN (14:00)
--- NOTE | 2024-05-15 15:16 | DVHSR ---
APPROVED REPORT EXAM: Two-dimensional and M-mode echocardiogram with Doppler and color Doppler. Blood Pressure: 144/84 mmHg INDICATION Heart Failure RISK FACTORS Height: 5'9", Weight: 160 DIMENSIONS LVDd3.5 (3.8-5.7cm)LA (2D)4.5 (1.9-4.0cm)Aortic Root3.2 (2.0-3.7cm) LVDs2.1 (2.5-4.0cm)LA (MM) (1.9-4.0cm)Aortic Cusp Exc1.1 (1.5-2.0cm) EF (%) 65.0 (55-70%)Rt. Atrium5.4 (1.9-4.0cm)Asc. Aorta cm IVSd1.4 (0.7-1.1cm)RV (D)3.7 (1.8-2.4cm) PWd1.2 (0.7-1.1cm) Mitral Valve MitralMitral Stenosis E wave1.22m/sMV Mean GR.mmHg E/A ratio0.02D MVAcm2 Aortic Valve Aortic ValveAortic Stenosis V10.91m/Fernandez Mean GR.4mmHg V21.28m/Fernandez Peak GR.7mmHg LVOT Diameter1.9 (1.8-2.4cm)Doppler AVA2.01cm2 Pulmonic Valve V20.83m/s Tricuspid Valve TR Velocity3.01m/s [id number] LEFT VENTRICLE The left ventricle is of normal size. Wall thickness is [id number] increased. Ejection frac tion is normal and is estimated at 65%. There is no regional wall motion abnormalities. Diastolic f unction is indeterminate as patient is atrial fibrillation at the time of the study. RIGHT VENTRICLE The right ventricle is of normal size. Systolic function is normal. ATRIA There is severe biatrial enlargement. MITRAL VALVE Normal in structure and function. There is mild mitral regurgitation. PULMONIC VALVE Likely normal. TRICUSPID VALVE Normal structure and function. There is mild tricuspid regurgitation. PA systolic pressure is estim ated at 50-55 mm Hg. AORTIC VALVE Leaflets are mildly calcified. No significant stenosis or regurgitation. GREAT VESSELS Aortic root is of normal size. Proximal ascending aorta is not visualized. PERICARDIAL EFFUSION No significant pericardial effusion. IVC is dilated in size. Other Information Quality : Technically LimitedRhythm : Technically limited study due to body habitus. Conclusion Normal left ventricular size and systolic function. Ejection fraction is estimated at 65%. [id number] concentric left ventricular hypertrophy. Diastolic function is indeterminate as patient is atrial fibrillation at the time of the study. Normal right ventricular size and systolic function. Severe biatrial enlargement. No hemodynamically significant valvular disease. PA systolic pressure is estimated at 50-55 mm Hg.
[2024-05-15] MEDS: SODIUM CHLORIDE 0.9% 1,000 ML IV SCH (15:30)
--- NOTE | 2024-05-15 16:27 | DVHHP2 ---
History of Present Illness Reason for Visit: Acute comminuted right greater trochanter fracture History of Present Illness The patient is a 84-year-old male with multiple past medical history including AFib, CHF, COPD, and hypertension who presented to [facility] ED with complaint of right hip pain status post fall at home. As reported EMS, patient was trying to get out of wheelchair when he fell landing on his right hip with sustained injury. Patient was seen and evaluated in the ED, laboratory data shows WBC 4.4, hemoglobin 11.3, hematocrit 33.7, platelets 69219, sodium 136, potassium 3.7, BUN 20, creatinine 0.72, GFR 90, glucose 91, total bilirubin one four, troponin < 3. Right hip CT revealing acute comminuted right greater trochanter fracture. Please see medication orders section in the computer. On my assessment, patient remains altered, denied chest pain, no headache, no dizziness, no diaphoresis, no loss of consciousness, no nausea, no vomiting, no fever, no chills. Patient was admitted for further evaluation and medical management. Past Medical History AFIB, Angina, CHF, COPD, GERD, High Lipids, HTN, Dementia Past Surgical History Denies all surgeries Family History Reviewed, noncontributory to the management of this case. Past Social History The patient lives at home, denies smoking, alcohol or illicit drugs abuse. Review of Systems Constitutional: Yes: Weakness; No: Fever, Chills, Sweats, Malaise, Other Eyes: No: Pain, Vision change, Conjunctivae inflammation, Eyelid inflammation, Other, Redness ENT: No: Ear pain, Ear discharge, Nose pain, Nose discharge, Nose congestion, Mouth pain, Mouth swelling, Throat pain, Throat swelling, Other Respiratory: No: Cough, Dry, Shortness of breath, SOB with excertion, Wheezing, Hemoptysis, Pleuritic Pain, Sputum, Wheezing, Other Cardiovascular: No: Chest Pain, Palpitations, Orthopnea, Paroxysmal Noc. Dyspnea, Edema, Lt Headedness, Other Gastrointestinal: No: Nausea, Vomiting, Abdominal Pain, Diarrhea, Constipation, Melena, Hematochezia, Other Genitourinary: No Dysuria, No Frequency, No Incontinence, No Hematuria, No Retention, No Other Musculoskeletal: other (Right hip pain); No: neck pain, shoulder pain, arm kim n, back pain, hand pain, leg pain, foot pain Skin: No: Rash, Lesions, Jaundice, Bruising, Other Neurological: No: Weakness, Numbness, Incoordination, Change in speech, Confusion, Seizures, Other Allergies: Coded Allergies: No Known Drug Allergy (Verified Allergy, Unknown, 02/17/21) Medications Current Medications Medications Dose Ordered Sig/Amanda Route Start Time Stop Time Status Last Admin Dose Admin Albuterol 2.5 mg Q4HPRN PRN NEB 05/15/24 14:00 Amlodipine Besylate 5 mg DAILY PO 05/16/24 10:00 Hydralazine HCl 10 mg Q6HP PRN IV 05/15/24 14:00 Carvedilol 3.125 mg Q12HR PO 05/15/24 22:00 Sodium Chloride 1,000 ml @ 60 mls/hr [id number] IV 05/15/24 14:00 05/15/24 15:30 60 MLS/HR Acetaminophen/ Hydrocodone Bitart 1 tab Q4HP PRN PO 05/15/24 14:00 Ondansetron HCl 4 mg Q4HP PRN IV 05/15/24 14:00 Docusate Sodium 100 mg BIDPRN PRN PO 05/15/24 14:00 Acetaminophen 650 mg Q6HP PRN PO 05/15/24 14:00 Apixaban 2.5 mg BID PO 05/15/24 22:00 Future hold Exam Vital Signs Vital Signs Date Time Temp Pulse Resp B/P (MAP) Pulse Ox O2 Delivery O2 Flow Rate FiO2 05/15/24 16:00 94 05/15/24 16:00 20 123/66 (85) 94 05/15/24 08:16 Room Air* 0 21 05/15/24 08:00 99.1 99.1 General Appearance: Alert, Cooperative, No acute distress, Other (Oriented x2) HEENT: Atraumatic, PERRLA, EOMI, Mucous membr. moist/pink Respiratory: Clear to auscultation, Normal air movement Cardiovascular: Regular rate, Normal S1, Normal S2, No murmurs Abdominal: Normal bowel sounds, Soft, No tenderness, No hepatospenomegaly, No masses Extremities: No clubbing, No cyanosis, No edema, Normal pulses, Other (Right hip tenderness) Skin: No rashes, No breakdown, No significant lesion Neuro: Normal speech, Normal tone, Sensation intact, Cranial nerves 3-12 NL, Reflexes 2+, Other (Generalized weakness) Psych/Mental Status: Mood NL, Other (Altered mental status) Labs/Xrays Labs Test 05/15/24 16:11 05/15/24 10:14 05/15/24 08:00 Range/Units White Blood Count 4.4 4.4-10.8 10^3/uL Red Blood Count 3.59 L 4.5-5.90 10^6/uL Hemoglobin 11.3 L 13.5-17.5 g/dL Hematocrit 33.7 L 41.0-53.0 % Mean Corpuscular Volume 93.9 80.0-100.0 fL Mean Corpuscular Hemoglobin 31.6 28.0-32.0 pg Mean Corpuscular Hemoglobin Concent 33.7 32.0-36.0 g/dL Red Cell Distribution Width 14.6 H 11.8-14.3 % Platelet Count 92 L 140-450 10^3/uL Mean Platelet Volume 10.1 6.9-10.8 fL Neutrophils (%) (Auto) 37.0-80.0 % Lymphocytes (%) (Auto) 10.0-50.0 % Monocytes (%) (Auto) 0.0-12.0 % Basophils (%) (Auto) 0.0-2.0 % Neutrophils # (Auto) 1.6-8.6 10 ^3/uL Lymphocytes # (Auto) 0.4-5.4 10 ^3/uL Monocytes # (Auto) 0-1.3 10 ^3/uL Differential Total Cells Counted 100.0 100 Neutrophils % (Manual) 65 37.0-80.0 Band Neutrophils % (Manual) 0 Lymphocytes % (Manual) 13 10.0-50.0 Monocytes % (Manual) 18 H 0-12 Eosinophils % (Manual) 4 0-7 Basophils % (Manual) 0 0.0-2.0 Metamyelocytes % (manual) 0 Myelocytes % (Manual) 0 Promyelocytes % (Manual) 0 Blast Cells % (Manual) 0 Reactive Lymphocytes 0 Platelet Estimate Decreased Red Blood Cell Morphology Normal Prothrombin Time 12.3 H 9.3-11.8 sec Prothrombin Time INR 1.18 H 0.9-1.15 Activated Partial Thromboplast Time 32.6 24.5-34.5 SEC Sodium Level 136 136-145 mmol/L Potassium Level 3.7 3.5-5.1 mmol/L Chloride Level 103 98-107 mmol/L Carbon Dioxide Level 24 20-31 mmol/L Anion Gap 9 5-15 Blood Urea Nitrogen 20 9-23 mg/dL Creatinine 0.72 0.700-1.30 mg/dL Glomerular Filtration Rate Calc 90 >90 mL/min BUN/Creatinine Ratio 27.8 H 10.0-20.0 Serum Glucose 91 74-106 mg/dL Calcium Level 9.4 8.7-10.4 mg/dL Magnesium Level 2.0 1.6-2.6 mg/dL Total Bilirubin 1.4 H 0.2-1.0 mg/dL Aspartate Amino Transferase (AST) 16 13-40 U/L Alanine Aminotransferase (ALT) < 9 7-40 U/L Alkaline Phosphatase 74 46-116 U/L Troponin I High Sensitivity < 3 L </=54 ng/L Total Protein 6.6 5.7-8.2 g/dL Albumin 4.2 3.2-4.8 g/dL Urine Color Yellow Yellow Urine Clarity Clear Clear Urine pH 5.5 5.0-9.0 Urine Specific [place] 1.027 1.001-1.035 Urine Protein Trace H Negative Urine Ketones 1+ H Negative Urine Blood Negative Negative /uL Urine Nitrite Negative Negative Urine Bilirubin Negative Negative Urine Urobilinogen 4 H Negative mg/dL Urine Leukocyte Esterase Negative Negative /uL Urine RBC 2 0 - 3 /hpf Urine WBC <1 0 - 3 /hpf Urine Squamous Epithelial Cells None seen <5 /hpf Urine Bacteria None seen None Seen /hpf Urine Mucus Few None Seen Urine Glucose Normal Normal mg/dL PATIENT: KALYAN DIAZ ACCT: [id number] UNIT: [id number] : 1940 LOC: ER ROOM / BED: / AGE / SEX: 84 / M ADM STATUS: REG ER SERVICE 1001 ORDERING PHYSICIAN: CAROL CARLOS MD PROCEDURE(s): RHPCT - CT R HIP WITH OUT CONTRAST REASON: fall ORDER NUMBER(s): [id number], ACCESSION NUMBER(s): [id number] CLINICAL INDICATION: 84 years old, Male; fall. TECHNIQUE: Noncontrast CT of the right hip was performed. Sagittal and coronal reformatted images are provided. COMPARISON: CT CHEST WITHOUT CONTRAST on DOS: 03/29/23 CT Dose: CTDI volume is 10.51 mGy. Dose-length product is 314.08 mGy*cm FINDINGS: There is an acute comminuted fracture of the right greater trochanter. There is mild right hip joint space narrowing. Right hip joint effusion. Regional soft tissues are unremarkable. IMPRESSION: 1. Acute comminuted right greater trochanter fracture. ORDERING PHYSICIAN: CAROL CARLOS MD PROCEDURE(s): CXRP - CHEST PORTABLE REASON: chf ORDER NUMBER(s): [id number], ACCESSION NUMBER(s): [id number] CHEST RADIOGRAPH Indication: chf Technique: Single frontal view of the chest was obtained COMPARISON: XY CHEST PORTABLE on DOS: 03/28/23 FINDINGS: Lines and Tubes: None Lungs: Clear Pleura: No effusion. No pneumothorax. Cardiomediastinal contours: Unremarkable Bones: Unremarkable IMPRESSION: No acute disease. Assessment/Plan Assessment/Plan Fall with injury Fracture of greater trochanter of right femur Unspecified fall, initial encounter Atrial fibrillation Longstanding persistent atrial fibrillation Pancytopenia Generalized weakness PVCs (premature ventricular contractions) Plan 1. Admit to telemetry unit 2. Breathing treatment 3. Pain control management 4. Management of fluids and electrolytes 5. Consultation for orthopedic surgery 6. Diagnostic tests right hip CT 7. DVT prophylaxis-on Lovenox 8. Repeat labs CBC, CMP in a.m. 9. Continue with current medical management 10. Treatment plan discussed with patient and RN. Patient verbalized understanding. Plan discussed with: Patient, Other (RN) My Orders Orders - ANTONIETA DODGE DNP Procedure Category Date Status Time B-Type Natriuretic LAB 05/15/24 In Process Peptide 13:59 Albuterol Medneb PHA 05/15/24 In Process (Ventolin Medneb) 14:00 Amlodipine Tablet PHA 05/16/24 In Process (Norvasc Tablet) 10:00 Hydralazine Injection PHA 05/15/24 In Process (Apresoline Inject 14:00 * Orthopedic Consult CONS 05/15/24 Transmitted 13:59 Carvedilol Tablet PHA 05/15/24 In Process (Coreg Tablet) 22:00 Allergies TYLER 05/15/24 In Process 13:59 Code Status CODE 05/15/24 Transmitted 13:59 Sodium Chloride 0.9% PHA 05/15/24 In Process 14:00 Oxygen Per Hour RT 05/15/24 Transmitted 13:59 Hydrocodone-Acet PHA 05/15/24 In Process 5/325mg Tab ([place] 14:00 Ondansetron Hcl PHA 05/15/24 In Process (Zofran) 14:00 Docusate Sodium PHA 05/15/24 In Process Capsule (Colace 14:00 Fall Risk Precautions TYLER 05/15/[address] 13:59 Complete Blood Count LAB 05/16/24 Verified 04:00 Comprehensive LAB 05/16/24 Verified Metabolic Panel 04:00 Cardiac DIET 05/15/24 Transmitted Diet-2gna,Lofat,Lochol Dinner Echo 2d Mode Cardiac US 05/15/24 Resulted DOP 13:59 Condition: Serious TYLER 05/15/24 In Process 13:59 Acetaminophen Tablet PHA 05/15/24 In Process (Tylenol Tablet) 14:00 Sequential TYLER 05/15/24 In Process Compression Device Apixaban (Eliquis) PHA 05/15/24 In Process 22:00 Pharmacy TYLER 05/16/24 In Process Clarification: 23:59 Admit ADMIT 05/15/24 Verified 16:24 Nitroglycerin [facility] 05/15/24 Verified Sublingual (Ntrostat 16:30 Morphine Sulfate [facility] 05/15/24 Verified Injection 16:30 Notify Of Changes [facility] 05/15/24 Verified From Base 16:24 Alcoholism Worker For [facility] 05/15/24 Verified 24 Hours 16:24 Emergency Dysrhythmia [facility] 05/15/24 Verified Protocol 16:24 Rhythm Strips Once [facility] 05/15/24 Verified Every Shift 16:24 Oxygen By Nasal RT 05/15/24 Verified Cannula 16:24 Problem List: (1) Fall with injury (2) Fracture of greater trochanter of right femur (3) Longstanding persistent atrial fibrillation (4) Pancytopenia (5) Atrial fibrillation (6) Unspecified fall, initial encounter (7) Generalized weakness (8) PVCs (premature ventricular contractions) Date of Service: May 15, 2024 Billing Provider: ANTONIETA DODGE DNP Common Visit Codes: [id number] INP/OBS CARE (HIGH) ANTONIETA DODGE DNP May 15, 2024 16:27
[2024-05-15] MEDS ORDERED: MORPHINE SULFATE INJ 2 MG/ml SYRG IV PRN (16:30)
[2024-05-15] MEDS ORDERED: NITROGLYCERIN 0.4 MG SL TAB SL PRN (16:30)
[2024-05-15 19:02] VITALS: BP 159/99; PULSE 154; RESP 20; O2SAT 94
[2024-05-15 19:15] VITALS: O2SAT 99
[2024-05-15 19:30] VITALS: PULSE 124; RESP 20; O2SAT 94
[2024-05-15] MEDS: APIXABAN 2.5 MG TAB PO SCH (22:40)
[2024-05-15] MEDS: dilTIAZem 25 MG/5 ML VIAL IV ONE ×2 (22:41→22:48)
[2024-05-15] MEDS: CARVEDILOL 3.125 MG TAB PO SCH (22:41)
[2024-05-16] VITALS (7 sets, daily range): BP systolic 136–153; BP diastolic 89–91; PULSE 101–120; RESP 18–20; TEMP 101.1–101.9; O2SAT 94–100
[2024-05-16] MEDS: LABETALOL HCL 20 MG/4 ML VL IV ONE (00:32)
[2024-05-16 06:34] LABS: Basophils # (auto) 0 10 ^3/uL (0-0.2); Basophils % (auto) 0.7 % (0.0-2.0); Eosinophils # (auto) 0.1 10 ^3/uL (0-0.8); Eosinophils % (auto) 1.3 % (0.0-7.0); Hemoglobin 11.9 g/dL (13.5-17.5); Lymphocytes # (auto) 0.6 10 ^3/uL (0.4-5.4); Lymphocytes % (auto) 9.7 % (10.0-50.0); Mean Corpuscular Hgb Conc. 33.9 g/dL (32.0-36.0); Mean Corpuscular Volume 94.4 fL (80.0-100.0); Monocytes # (auto) 0.9 10 ^3/uL (0-1.3); Monocytes % (auto) 14.9 % (0.0-12.0); Neutrophils # (auto) 4.3 10 ^3/uL (1.6-8.6); Neutrophils % (auto) 73.4 % (37.0-80.0); Nucleated Red Blood Cells % 0.1 %; Platelet Count (auto) 101 10^3/uL (140-450); Red Cell Distribution Width 14.9 % (11.8-14.3); White Blood Cell 5.9 10^3/uL (4.4-10.8)
[2024-05-16 06:52] LABS: Albumin 3.8 g/dL (3.2-4.8); Alkaline Phosphatase 72 U/L (46-116); Anion Gap 9 (5-15); Aspartate Aminotransferase 21 U/L (13-40); BUN/Creatinine Ratio 20.5 (10.0-20.0); Blood Urea Nitrogen 15 mg/dL (9-23); Calcium 9.3 mg/dL (8.7-10.4); Carbon Dioxide 24 mmol/L (20-31); Chloride 102 mmol/L (98-107); Total Protein 6.7 g/dL (5.7-8.2)
[2024-05-16 06:53] LABS: Alanine Aminotransferase 9 U/L (7-40); Glucose 108 mg/dL (74-106); Sodium 135 mmol/L (136-145)
[2024-05-16] MEDS ORDERED: ENOXAPARIN SOD 40 MG/0.4 ML SYRINGE SC SCH (10:00)
[2024-05-16] MEDS: amLODIPine BESYLATE 5 MG TAB PO SCH (10:29)
--- NOTE | 2024-05-16 16:26 | DVHPN2 ---
Subjective Seen and examined at bedside in the ED. Son at bedside. Control HR. DC Eliquis. Changes from previous H/P or p: No Changes Eyes: No Pain, No Vision change, No Conjunctivae inflammation, No Eyelid inflammation, No Other, No Redness ENT: No Ear pain, No Ear discharge, No Nose pain, No Nose discharge, No Nose congestion, No Mouth pain, No Mouth swelling, No Throat pain, No Throat swelling, No Other Cardiovascular: No Chest Pain, No Palpitations, No Orthopnea, No Paroxysmal Noc. Dyspnea, No Edema, No Lt Headedness, No Other Respiratory: No Cough, No Dry, No Shortness of breath, No SOB with excertion, No Wheezing, No Hemoptysis, No Pleuritic Pain, No Sputum, No Other Gastrointestinal: No Nausea, No Vomiting, No Abdominal Pain, No Diarrhea, No Constipation, No Melena, No Hematochezia, No Other Genitourinary: No Dysuria, No Frequency, No Incontinence, No Hematuria, No Retention, No Other Musculoskeletal: other (Right hip pain); No neck pain, No shoulder pain, No arm pain, No back pain, No hand pain, No leg pain, No foot pain Skin: No Rash, No Lesions, No Jaundice, No Bruising, No Other Objective Vitals Vital Signs Date Time Temp Pulse Resp B/P (MAP) Pulse Ox O2 Delivery O2 Flow Rate FiO2 05/16/24 15:38 110 18 157/78 (104) 98 05/16/24 12:00 98.9 98.9 05/16/24 08:30 Room Air 0.0 05/16/24 08:30 21 Intake/Output Intake and Output 05/16/24 06:59 Intake Total 780 ml Output Total 900 ml Balance -120 ml Intake IV Total 780 ml Output Urine Total 900 ml Medications Current Medications Medications Dose Ordered Sig/Amanda Route Start Time Stop Time Status Last Admin Dose Admin Albuterol 2.5 mg Q4HPRN PRN NEB 05/15/24 14:00 Amlodipine Besylate 5 mg DAILY PO 05/16/24 10:00 05/16/24 10:29 5 MG Hydralazine HCl 10 mg Q6HP PRN IV 05/15/24 14:00 Carvedilol 3.125 mg Q12HR PO 05/15/24 22:00 05/16/24 10:29 3.125 MG Acetaminophen/ Hydrocodone Bitart 1 tab Q4HP PRN PO 05/15/24 14:00 Ondansetron HCl 4 mg Q4HP PRN IV 05/15/24 14:00 Docusate Sodium 100 mg BIDPRN PRN PO 05/15/24 14:00 Acetaminophen 650 mg Q6HP PRN PO 05/15/24 14:00 Nitroglycerin 0.4 mg Q5MINP PRN SL 05/15/24 16:30 Morphine Sulfate 2 mg Q30M PRN IV 05/15/24 16:30 Laboratory Results Laboratory Tests 05/16/24 05:59 Chemistry Test 05/16/24 05:59 Albumin 3.8 g/dL (3.2-4.8) Calcium Level 9.3 mg/dL (8.7-10.4) Total Protein 6.7 g/dL (5.7-8.2) LFT Test 05/16/24 05:59 Alanine Aminotransferase (ALT) 9 U/L (7-40) Alkaline Phosphatase 72 U/L (46-116) Aspartate Amino Transferase (AST) 21 U/L (13-40) Total Bilirubin 2.0 mg/dL (0.2-1.0) H Urinalysis Test 05/15/24 08:00 Urine Color Yellow (Yellow) Urine Clarity Clear (Clear) Urine pH 5.5 (5.0-9.0) Urine Specific [place] 1.027 (1.001-1.035) Urine Protein Trace (Negative) H Urine Ketones 1+ (Negative) H Urine Blood Negative /uL (Negative) Urine Nitrite Negative (Negative) Urine Bilirubin Negative (Negative) Urine Urobilinogen 4 mg/dL (Negative) H Urine Leukocyte Esterase Negative /uL (Negative) Urine RBC 2 /hpf (0 - 3) Urine WBC <1 /hpf (0 - 3) Urine Squamous Epithelial Cells None seen /hpf (<5) Urine Bacteria None seen /hpf (None Seen) Urine Mucus Few (None Seen) Urine Glucose Normal mg/dL (Normal) Assessment/Plan Assessment/Plan # Acute comminuted right greater trochanter fracture- Ortho Consult # Fall # Chronic A-Fibb- Cont Coreg, HOLD Eliquis # Goals of care discussed with patient and SON- DNR/DNI Plan discussed with: Patient, Son My Orders Orders - SAILAJA MUÑOZ MD Procedure Category Date Status Time Basic Metabolic Panel LAB 05/17/24 Verified 04:00 Complete Blood Count LAB 05/17/24 Verified 04:00 B-Type Natriuretic LAB 05/17/24 Verified Peptide 04:00 Magnesium LAB 05/17/24 Verified 04:00 * Cardiology Consult CONS 05/16/24 Transmitted 16:16 Digoxin Injection PHA 05/16/24 Logged (Lanoxin Injection) 16:30 Vitamin D, 25-Hydroxy LAB 05/16/24 Logged 16:16 Date of Service: May 16, 2024 Billing Provider: SAILAJA MUÑOZ MD Common Visit Codes: [id number] INP/OBS CARE(HIGH) Secondary Visit Codes: [id number] CARE PLAN 30 MINUTES SAILAJA MUÑOZ MD May 16, 2024 16:26
[2024-05-16] MEDS: DIGOXIN (250MCG/ML) 2 ML AMPULE IV ONE (16:39)
[2024-05-16] MEDS: ALBUTEROL SULF 2.5 MG/0.5ML(0.5%) NEB SOLN NEB PRN (19:13)
[2024-05-16] MEDS: ACETAMINOPHEN 325 MG TAB PO PRN (21:35)
[2024-05-17] VITALS (9 sets, daily range): BP systolic 122–131; BP diastolic 69–74; PULSE 86–116; RESP 17–24; TEMP 98.6–99.5; O2SAT 94–100
[2024-05-17 06:37] LABS: Hematocrit 34.1 % (41.0-53.0); Hemoglobin 11.6 g/dL (13.5-17.5); Mean Corpuscular Hemoglobin 32.1 pg (28.0-32.0); Mean Corpuscular Hgb Conc. 33.9 g/dL (32.0-36.0); Mean Corpuscular Volume 94.6 fL (80.0-100.0); Platelet Count (auto) 98 10^3/uL (140-450); Red Blood Cells 3.61 10^6/uL (4.5-5.90); Red Cell Distribution Width 14.6 % (11.8-14.3); White Blood Cell 8.5 10^3/uL (4.4-10.8)
[2024-05-17 06:48] LABS: Anion Gap 7 (5-15); Calcium 9.6 mg/dL (8.7-10.4); Carbon Dioxide 27 mmol/L (20-31); Chloride 101 mmol/L (98-107); Potassium 3.6 mmol/L (3.5-5.1)
[2024-05-17 06:54] LABS: BUN/Creatinine Ratio 20.9 (10.0-20.0); Band Neutrophils % (manual) 0; Basophils % (manual) 0 (0.0-2.0); Blast Cells 0; Blood Urea Nitrogen 18 mg/dL (9-23); Eosinophils % (manual) 0 (0-7); Glucose 86 mg/dL (74-106); Metamyelocytes % 0; Myelocytes % 0; Promyelocytes % 0; Reactive Lymphocytes 0
[2024-05-17 07:04] LABS: Sodium 135 mmol/L (136-145)
--- NOTE | 2024-05-17 08:54 | DVHHP2 ---
History Allergies: Coded Allergies: No Known Drug Allergy (Verified Allergy, Unknown, 02/17/21) Chief Complaint: Orthopaedic consultation for 84M, admitted on for AMMS, significant PMH with multiple falls, consulted for evaluation of left hip fracture. Present Illness(Onset/Duration 84M, significant PMH includingn multiple falls, admitted with Dx of AMS, pneumonia, right lateral hip pain, CT performed showing right greater trochanteric fracture Past Surgical History non contributory Physical Exam Extremities Right hip , no groin pain with PROM, tender to palpation greater trochanter, skin intact, NVI Vital Signs Vital Signs Date Time Temp Pulse Resp B/P (MAP) Pulse Ox O2 Delivery O2 Flow Rate FiO2 05/17/24 07:25 115 24 97 05/17/24 07:19 Room Air 0.0 05/17/24 07:19 21 05/17/24 05:00 99.5 131/69 (89) 99.5 Impressions/Description CT RIGHT hip greater trochanteric fracture, no involvement of joint, neck or intertrochanteric region Plan Non surgical condition 1) TDWB with FWW, full assist 2) [facility] clinic 1-2 mo with XR right hip TRENA FERGUSON MD May 17, 2024 08:54
[2024-05-17 09:32] LABS: Lymphocytes % (manual) 10 (10.0-50.0); Monocytes % (manual) 15 (0-12)
[2024-05-17 09:33] LABS: Platelet Estimate Decreased
--- NOTE | 2024-05-17 09:54 | DVHINCON2 ---
Date Seen: May 17, 2024 Referring Physician MD Vibha Reason for Consultation A-fib History of Present Illness This is an 84-year-old male who presented to the emergency room via EMS with a chief complaint of mechanical fall injury. At time of assessment, the patient was found with sitter at bedside and asleep. Information obtained from records which indicate the patient experienced a witnessed mechanical fall where he was attempting to get out of his wheelchair when he fell and landed onto his right hip. There was no LOC or incontinence. Per son at bedside, the patient has not taken his Eliquis therapy for the past month as they have not been able to refill it. Multiple 12 lead electrocardiogram revealed an atrial fibrillation rhythm at a controlled rate. Significant medical history includes atrial fibrillation on low-dose Eliquis/propranolol therapy, hypertension, GERD, history of prostate cancer, benign prostatic hyperplasia, and dementia. Past Medical History Past medical history reviewed. No other significant than mentioned above. Past Surgical History TURP Family History: FH: stomach cancer G8 MOTHER, Family History Unable to obtain family history at this time. Social History Unable to obtain social history at this time. Allergies: Coded Allergies: No Known Drug Allergy (Verified Allergy, Unknown, 02/17/21) Home Meds Active Scripts Hydrocodone-Acetaminophen (Hydrocodone Bitartrate/AC 5-325 mg) 1 Tab Tab, 1 TAB PO Q6HP PRN, #15 TAB Prov:JUSTO FERRARI PAC 05/13/24 Ibuprofen (Ibuprofen) 600 Mg Tab, 1 TAB PO Q6HP PRN, #20 TAB Prov:JUSTO FERRARI PAC 05/13/24 Albuterol Sulfate (VENTOLIN MDI) 90 Mcg Ih, 90 MCG IN Q6HPRN PRN for 30 Days, #30 INH Prov:SAILAJA MUÑOZ MD 03/30/23 Potassium Chloride (Potassium Chloride ER) 10 Meq Tab, 10 MEQ PO QAM for 7 Days, #7 TAB Prov:SAILAJA MUÑOZ MD 03/30/23 Furosemide (Lasix) 20 Mg Tb, 1 TAB PO QAM for 7 Days, #7 TAB 5 Refills Prov:SAILAJA MUÑOZ MD 03/30/23 Prednisone (Prednisone) 20 Mg Tab, 40 MG PO QAM for 5 Days, #5 MG Prov:SAILAJA MUÑOZ MD 03/30/23 Levofloxacin (Levaquin 750 mg) 750 Mg Tab, 1 TAB PO DAILY for 7 Days, #7 TAB Prov:SAILAJA MUÑOZ MD 03/30/23 Reported Medications Apixaban Base (ELIQUIS) 2.5 Mg Tab, 1 TAB PO BID 03/28/23 Amlodipine Besylate (NORVASC TABLET) 5 Mg Tb, 5 MG PO DAILY for BP, TAB 02/17/21 Tamsulosin Hcl (Tamsulosin Hcl) 0.4 Mg Cap, 0.4 MG PO QPM for PROSTATE for 30 Days, MG 02/17/21 Propranolol Hcl (Inderal La) 60 Mg Cap, 60 MG PO HS for A.FIB, CAP 02/17/21 Sacubitril-Valsartan (Entresto 24-26 mg) 1 Tab Tab, 1 TAB PO BID for BP, TAB 02/17/21 Hydrocodone-Acetaminophen ([place] 5/325MG) 1 Tab Tb, 1 TAB PO BID PRN for MODERATE PAIN (4-6 PAIN SCALE), #60 TAB 06/19/19 Omeprazole (Gnp Omeprazole) 20 Mg Tab, 1 TAB PO DAILY, #90 TAB 1 Refill 08/04/18 Nitroglycerin (Nitroglycerin Transdermal) 0.2 Mg/Hr Dis, 0.2 MG TD HS, DIS 08/04/18 Home Meds Home medications reviewed. Current Medications Current Medications Medications (Trade) Dose Ordered Sig/Amanda Route PRN Reason Start Time Stop Time Status Last Admin Amlodipine Besylate (Norvasc Tablet) 5 mg DAILY PO 05/16/24 10:00 05/17/24 09:15 Enoxaparin Sodium (Lovenox) 40 mg DAILY SC 05/16/24 10:00 05/15/24 15:30 DC Review of Systems Constitutional: No symptom reported Ears, Nose, & Throat: No symptom reported Eyes: No symptom reported Neurological: No symptoms reported Pulmonary/Respiratory: No symptom reported Cardiovascular: No symptom reported Gastrointestinal: No symptom reported Genitourinary: No symptom reported Musculoskeletal: Right hip pain Skin: No symptom reported Psychiatric: No symptom reported Endocrine: No symptom reported Hemotologic/Lymphatic: No symptom reported Vital Signs Vital Signs Date Time Temp Pulse Resp B/P (MAP) Pulse Ox O2 Delivery O2 Flow Rate FiO2 05/17/24 09:15 129/63 05/17/24 09:14 110 05/17/24 07:25 24 97 05/17/24 07:19 Room Air 0.0 05/17/24 07:19 21 05/17/24 05:00 99.5 99.5 Physical Exam General Appearance: Asleep. Agitated last night. Sitter at bedside Head Exam: Normal inspection Neck Exam: Normal inspection. Normal alignment Pulmonary/Respiratory: Clear bilateral breath sounds Cardiovascular/Chest: Irregularly irregular rate and rhythm. AFib, controlled rate. Peripheral Pulses: 2+ Radial (R). 2+ Radial (L). 2+ Pedal (R). 2+ Pedal (L) Abdominal Exam: Normal bowel sounds. Soft. Ankle Exam: Negative ankle edema Lower extremities: Negative lower extremity edema Neuro/Mental Status: Asleep Thoughts/Psych: Unable to assess at this time Appearance: In no acute distress Skin Exam: Normal inspection. Normal color. Warm. Dry Labs/Diagnostic Data Labs Test 05/17/24 05:54 05/16/24 05:59 05/15/24 10:14 05/15/24 08:00 Range/Units White Blood Count 8.5 # 4.4-10.8 10^3/uL Red Blood Count 3.61 L 4.5-5.90 10^6/uL Hemoglobin 11.6 L 13.5-17.5 g/dL Hematocrit 34.1 L 41.0-53.0 % Mean Corpuscular Volume 94.6 80.0-100.0 fL Mean Corpuscular Hemoglobin 32.1 H 28.0-32.0 pg Mean Corpuscular Hemoglobin Concent 33.9 32.0-36.0 g/dL Red Cell Distribution Width 14.6 H 11.8-14.3 % Platelet Count 98 L 140-450 10^3/uL Mean Platelet Volume 10.2 6.9-10.8 fL Neutrophils (%) (Auto) 37.0-80.0 % Lymphocytes (%) (Auto) 10.0-50.0 % Monocytes (%) (Auto) 0.0-12.0 % Basophils (%) (Auto) 0.0-2.0 % Neutrophils # (Auto) 1.6-8.6 10 ^3/uL Lymphocytes # (Auto) 0.4-5.4 10 ^3/uL Monocytes # (Auto) 0-1.3 10 ^3/uL Differential Total Cells Counted 100.0 100 Neutrophils % (Manual) 75 37.0-80.0 Band Neutrophils % (Manual) 0 Lymphocytes % (Manual) 10 10.0-50.0 Monocytes % (Manual) 15 H 0-12 Eosinophils % (Manual) 0 0-7 Basophils % (Manual) 0 0.0-2.0 Metamyelocytes % (manual) 0 Myelocytes % (Manual) 0 Promyelocytes % (Manual) 0 Blast Cells % (Manual) 0 Reactive Lymphocytes 0 Platelet Estimate Decreased Sodium Level 135 L 136-145 mmol/L Potassium Level 3.6 3.5-5.1 mmol/L Chloride Level 101 98-107 mmol/L Carbon Dioxide Level 27 20-31 mmol/L Anion Gap 7 5-15 Blood Urea Nitrogen 18 9-23 mg/dL Creatinine 0.86 0.700-1.30 mg/dL Glomerular Filtration Rate Calc 85 >90 mL/min BUN/Creatinine Ratio 20.9 H 10.0-20.0 Serum Glucose 86 74-106 mg/dL Calcium Level 9.6 8.7-10.4 mg/dL Magnesium Level 2.0 1.6-2.6 mg/dL B-Type Natriuretic Peptide 322.91 0-100 pg/mL Eosinophils (%) (Auto) 1.3 0.0-7.0 % Eosinophils # (Auto) 0.1 0-0.8 10 ^3/uL Basophils # (Auto) 0 0-0.2 10 ^3/uL Nucleated Red Blood Cells 0.1 % Total Bilirubin 2.0 H 0.2-1.0 mg/dL Aspartate Amino Transferase (AST) 21 13-40 U/L Alanine Aminotransferase (ALT) 9 7-40 U/L Alkaline Phosphatase 72 46-116 U/L Total Protein 6.7 5.7-8.2 g/dL Albumin 3.8 3.2-4.8 g/dL Vitamin D 25-Hydroxy 35.9 30.0-100 ng/mL Red Blood Cell Morphology Normal Prothrombin Time 12.3 H 9.3-11.8 sec Prothrombin Time INR 1.18 H 0.9-1.15 Activated Partial Thromboplast Time 32.6 24.5-34.5 SEC Troponin I High Sensitivity < 3 L </=54 ng/L Urine Color Yellow Yellow Urine Clarity Clear Clear Urine pH 5.5 5.0-9.0 Urine Specific [place] 1.027 1.001-1.035 Urine Protein Trace H Negative Urine Ketones 1+ H Negative Urine Blood Negative Negative /uL Urine Nitrite Negative Negative Urine Bilirubin Negative Negative Urine Urobilinogen 4 H Negative mg/dL Urine Leukocyte Esterase Negative Negative /uL Urine RBC 2 0 - 3 /hpf Urine WBC <1 0 - 3 /hpf Urine Squamous Epithelial Cells None seen <5 /hpf Urine Bacteria None seen None Seen /hpf Urine Mucus Few None Seen Urine Glucose Normal Normal mg/dL Assessment Persistent atrial fibrillation, on low-dose Eliquis/propranolol Pulmonary hypertension, moderate degree Hypertensive urgency Friend hip fracture Thrombocytopenia Dementia ?Sepsis R/o acute CVA Plan/Recommendation (Dr. Bennett) The patient underwent a transthoracic echocardiogram revealing an EF of 65% with severe biatrial enlargement and PA systolic pressures of 50-55 mmHg. We recommend rate control with BB (uptitrate as necessary for BP control) and therapeutic Lovenox in the time being. Orthopedic team deemed the patient not to be a candidate for surgery. Transition to low-dose Eliquis when appropriate. Replete electrolytes as necessary, K>4 and Mg>2. Initiate broad-spectrum ABX rest of septic work-up per primary care team. Obtain head CT rule out acute CVA, off DOAC therapy for the past month. Monitor ECG changes and notify. Follow-up with primary blocker polishing as scheduled. Kindly call if in need to re- consult. Thank you for allowing us to care for this patient. This medical document was created using an electronic medical record system with voice recognition software and computerized dictation system. Although this document has been carefully reviewed, there might still be some phonetic and typographical errors. Occasional wrong-word or ``sound-alike substitutions may have occurred due to the inherent limitations of voice recognition software. These areas are purely typographical due to imperfections of the software programs and do not reflect any compromise in the patient's medical care. Please read the chart carefully and recognize, using context, where these substitutions have occurred. Plan discussed with: Other NYHA Physical activity limitations: NA Date of Service: May 17, 2024 Billing Provider: MARYBETH IZQUIERDO Cardiology Common Codes: [id number] INP/OBS CARE (High) MARYBETH IZQUIERDO May 17, 2024 09:54
[2024-05-17] MEDS ORDERED: ENOXAPARIN SOD 100 MG/1 ML SYRINGE SC SCH (10:00)
[2024-05-17] MEDS: cefTRIAXone 1GM/50ML D5W 50 ML IV ONE (10:45)
[2024-05-17] MEDS: POTASSIUM CHL 20 Meq TABLET PO ONE (10:50)
[2024-05-17] MEDS ORDERED: FAMO-12 PO (12:23)
[2024-05-17] MEDS ORDERED: LISI10TA34 PO (12:23)
--- NOTE | 2024-05-17 12:51 | DVH ---
EXAM: CT HEAD WITHOUT CONTRAST HISTORY: ALOC r/o acute CVA COMPARISON: CT HEAD WITHOUT CONTRAST on DOS: 09/25/23, CT CHEST WITHOUT CONTRAST on DOS: 03/29/23 TECHNIQUE: Axial images of the head were obtained and reformatted in coronal and sagittal planes. All CT scans at this medical facility are performed using dose modulation techniques as appropriate t o a performed exam including the following: Automated exposure control was utilized; adjustment of th e MA and/or KV according to patient size; and use of iterative reconstruction technique. CT Dose: CTDI volume is 58.14 mGy. Dose-length product is 1029.48 mGy*cm FINDINGS: There is no evidence of acute intracranial hemorrhage, mass, mass effect midline shift. There is no h ydrocephalus or extra-axial fluid collection. There are mild patchy hypodense changes in the supraten torial white matter compatible with chronic small-vessel ischemic changes. Oliveros-white matter differen tiation is maintained. The visualized paranasal sinuses and mastoid air cells are clear. The calvarium is intact. IMPRESSION: 1. No acute intracranial process. HS:Y
--- NOTE | 2024-05-17 14:29 | DVHPN2 ---
Subjective Seen and examined at bedside, needs placement. Son at bedside. Had temp last night. Changes from previous H/P or p: No Changes Eyes: No Pain, No Vision change, No Conjunctivae inflammation, No Eyelid inflammation, No Other, No Redness ENT: No Ear pain, No Ear discharge, No Nose pain, No Nose discharge, No Nose congestion, No Mouth pain, No Mouth swelling, No Throat pain, No Throat swelling, No Other Cardiovascular: No Chest Pain, No Palpitations, No Orthopnea, No Paroxysmal Noc. Dyspnea, No Edema, No Lt Headedness, No Other Respiratory: No Cough, No Dry, No Shortness of breath, No SOB with excertion, No Wheezing, No Hemoptysis, No Pleuritic Pain, No Sputum, No Other Gastrointestinal: No Nausea, No Vomiting, No Abdominal Pain, No Diarrhea, No Constipation, No Melena, No Hematochezia, No Other Genitourinary: No Dysuria, No Frequency, No Incontinence, No Hematuria, No Retention, No Other Musculoskeletal: other (Right hip pain); No neck pain, No shoulder pain, No arm pain, No back pain, No hand pain, No leg pain, No foot pain Skin: No Rash, No Lesions, No Jaundice, No Bruising, No Other Objective Vitals Vital Signs Date Time Temp Pulse Resp B/P (MAP) Pulse Ox O2 Delivery O2 Flow Rate FiO2 05/17/24 10:14 91 130/74 05/17/24 07:25 24 97 05/17/24 07:19 Room Air 0.0 05/17/24 07:19 21 05/17/24 05:00 99.5 99.5 Intake/Output Intake and Output 05/17/24 07:00 Intake Total 400 ml Output Total 1450 ml Balance -1050 ml Intake Oral 400 ml Output Urine Total 1450 ml # Bowel Movements 2 Exam Gen: in bed NAD Cvs: N S1/S2, RRR Resp: BLAE Abd: Soft, NT, BS+ Afterschool Babysitter: AAO x 3 Ext: Unable to move R LE Medications Current Medications Medications Dose Ordered Sig/Amanda Route Start Time Stop Time Status Last Admin Dose Admin Albuterol 2.5 mg Q4HPRN PRN NEB 05/15/24 14:00 05/17/24 07:19 2.5 MG Amlodipine Besylate 5 mg DAILY PO 05/16/24 10:00 05/17/24 09:15 5 MG Carvedilol 3.125 mg Q12HR PO 05/15/24 22:00 05/17/24 09:14 3.125 MG Acetaminophen/ Hydrocodone Bitart 1 tab Q4HP PRN PO 05/15/24 14:00 Ondansetron HCl 4 mg Q4HP PRN IV 05/15/24 14:00 Docusate Sodium 100 mg BIDPRN PRN PO 05/15/24 14:00 Acetaminophen 650 mg Q6HP PRN PO 05/15/24 14:00 05/16/24 21:35 650 MG Nitroglycerin 0.4 mg Q5MINP PRN SL 05/15/24 16:30 Morphine Sulfate 2 mg Q30M PRN IV 05/15/24 16:30 Ceftriaxone Sodium 50 ml @ 100 mls/hr DAILY@09 IV 05/18/24 09:00 Enoxaparin Sodium 70 mg DAILY SC 05/18/24 10:00 Laboratory Results Laboratory Tests 05/17/24 05:54 Chemistry Test 05/17/24 05:54 Calcium Level 9.6 mg/dL (8.7-10.4) Magnesium Level 2.0 mg/dL (1.6-2.6) Cardiac Markers Test 05/17/24 05:54 B-Type Natriuretic Peptide 322.91 pg/mL (0-100) Urinalysis Test 05/15/24 08:00 Urine Color Yellow (Yellow) Urine Clarity Clear (Clear) Urine pH 5.5 (5.0-9.0) Urine Specific [place] 1.027 (1.001-1.035) Urine Protein Trace (Negative) H Urine Ketones 1+ (Negative) H Urine Blood Negative /uL (Negative) Urine Nitrite Negative (Negative) Urine Bilirubin Negative (Negative) Urine Urobilinogen 4 mg/dL (Negative) H Urine Leukocyte Esterase Negative /uL (Negative) Urine RBC 2 /hpf (0 - 3) Urine WBC <1 /hpf (0 - 3) Urine Squamous Epithelial Cells None seen /hpf (<5) Urine Bacteria None seen /hpf (None Seen) Urine Mucus Few (None Seen) Urine Glucose Normal mg/dL (Normal) Assessment/Plan Assessment/Plan # Acute comminuted right greater trochanter fracture- Ortho Consult noted, no surgery # Fall # Chronic A-Fibb- Cont Coreg, HOLD Eliquis, Justinx # Goals of care discussed with patient and SON- DNR/DNI Plan discussed with: Patient My Orders Orders - SAILAJA MUÑOZ MD Procedure Category Date Status Time * Cardiology Consult CONS 05/16/24 Transmitted 16:16 Date of Service: May 17, 2024 Billing Provider: SAILAJA MUÑOZ MD Common Visit Codes: [id number] INP/OBS CARE(HIGH) SAILAJA MUÑOZ MD May 17, 2024 14:29
[2024-05-17] MEDS: SODIUM CHLORIDE 0.9% 500 ML IV ONE (17:56)
[2024-05-17 21:06] LABS: Rapid Influenza A Negative (Negative); Rapid Influenza B Negative (Negative)
[2024-05-17 21:07] LABS: COVID19 ANTIGEN SOFIA FIA NEGATIVE (NEGATIVE)
[2024-05-18] VITALS (11 sets, daily range): BP systolic 100–140; BP diastolic 63–75; PULSE 89–107; RESP 16–20; TEMP 96.5–99.5; O2SAT 91–97
[2024-05-18 06:02] LABS: Hematocrit 34.7 % (41.0-53.0); Hemoglobin 11.8 g/dL (13.5-17.5); Mean Corpuscular Hemoglobin 32.3 pg (28.0-32.0); Mean Corpuscular Hgb Conc. 33.9 g/dL (32.0-36.0); Mean Corpuscular Volume 95.3 fL (80.0-100.0); Platelet Count (auto) 95 10^3/uL (140-450); Red Blood Cells 3.64 10^6/uL (4.5-5.90); Red Cell Distribution Width 14.6 % (11.8-14.3); White Blood Cell 4.3 10^3/uL (4.4-10.8)
[2024-05-18 06:13] LABS: Basophils % (manual) 0 (0.0-2.0); Blast Cells 0; Metamyelocytes % 0; Myelocytes % 0; Promyelocytes % 0; Reactive Lymphocytes 0
[2024-05-18 06:14] LABS: Anion Gap 6 (5-15); Calcium 9.3 mg/dL (8.7-10.4); Carbon Dioxide 27 mmol/L (20-31); Chloride 105 mmol/L (98-107); Potassium 4.2 mmol/L (3.5-5.1); Sodium 138 mmol/L (136-145)
[2024-05-18 06:19] LABS: Glucose 86 mg/dL (74-106)
[2024-05-18 06:20] LABS: BUN/Creatinine Ratio 28.9 (10.0-20.0); Blood Urea Nitrogen 22 mg/dL (9-23)
[2024-05-18 06:58] LABS: Band Neutrophils % (manual) 1; Eosinophils % (manual) 4 (0-7); Large Platelets FEW; Lymphocytes % (manual) 16 (10.0-50.0); Monocytes % (manual) 24 (0-12); Platelet Estimate Decreased
[2024-05-18] MEDS: cefTRIAXone 1GM/50ML D5W 50 ML IV SCH (08:13)
[2024-05-18] MEDS: ENOXAPARIN SOD 100 MG/1 ML SYRINGE SC SCH (09:16)
--- NOTE | 2024-05-18 15:06 | DVHPN2 ---
Subjective Seen and examined at bedside, I had a lenghty discussion with the patients son last night. Discussed hospice/palliative care. Changes from previous H/P or p: No Changes Eyes: No Pain, No Vision change, No Conjunctivae inflammation, No Eyelid inflammation, No Other, No Redness ENT: No Ear pain, No Ear discharge, No Nose pain, No Nose discharge, No Nose congestion, No Mouth pain, No Mouth swelling, No Throat pain, No Throat swelling, No Other Cardiovascular: No Chest Pain, No Palpitations, No Orthopnea, No Paroxysmal Noc. Dyspnea, No Edema, No Lt Headedness, No Other Respiratory: No Cough, No Dry, No Shortness of breath, No SOB with excertion, No Wheezing, No Hemoptysis, No Pleuritic Pain, No Sputum, No Other Gastrointestinal: No Nausea, No Vomiting, No Abdominal Pain, No Diarrhea, No Constipation, No Melena, No Hematochezia, No Other Genitourinary: No Dysuria, No Frequency, No Incontinence, No Hematuria, No Retention, No Other Musculoskeletal: other (Right hip pain); No neck pain, No shoulder pain, No arm pain, No back pain, No hand pain, No leg pain, No foot pain Skin: No Rash, No Lesions, No Jaundice, No Bruising, No Other Objective Vitals Vital Signs Date Time Temp Pulse Resp B/P (MAP) Pulse Ox O2 Delivery O2 Flow Rate FiO2 05/18/24 10:13 94 143/79 05/18/24 09:00 98.1 16 93 98.1 05/18/24 08:00 Room Air* 0 21 Intake/Output Intake and Output 05/18/24 07:00 Intake Total 460 ml Output Total 700 ml Balance -240 ml Intake Oral 410 ml IV Total 50 ml Output Urine Total 700 ml Exam Gen: in bed NAD Cvs: N S1/S2, RRR Resp: BLAE Abd: Soft, NT, BS+ Dog Track Kennel Manager: AAO x 3 Ext: Unable to move R LE Medications Current Medications Medications Dose Ordered Sig/Amanda Route Start Time Stop Time Status Last Admin Dose Admin Albuterol 2.5 mg Q4HPRN PRN NEB 05/15/24 14:00 05/17/24 07:19 2.5 MG Amlodipine Besylate 5 mg DAILY PO 05/16/24 10:00 05/18/24 09:13 5 MG Carvedilol 3.125 mg Q12HR PO 05/15/24 22:00 05/18/24 09:13 3.125 MG Acetaminophen/ Hydrocodone Bitart 1 tab Q4HP PRN PO 05/15/24 14:00 Ondansetron HCl 4 mg Q4HP PRN IV 05/15/24 14:00 Docusate Sodium 100 mg BIDPRN PRN PO 05/15/24 14:00 Acetaminophen 650 mg Q6HP PRN PO 05/15/24 14:00 05/16/24 21:35 650 MG Nitroglycerin 0.4 mg Q5MINP PRN SL 05/15/24 16:30 Morphine Sulfate 2 mg Q30M PRN IV 05/15/24 16:30 Ceftriaxone Sodium 50 ml @ 100 mls/hr DAILY@09 IV 05/18/24 09:00 05/18/24 08:13 100 MLS/HR Enoxaparin Sodium 70 mg DAILY SC 05/18/24 10:00 Laboratory Results Laboratory Tests 05/18/24 05:41 Chemistry Test 05/18/24 05:41 Calcium Level 9.3 mg/dL (8.7-10.4) Magnesium Level 2.0 mg/dL (1.6-2.6) Urinalysis Test 05/15/24 08:00 Urine Color Yellow (Yellow) Urine Clarity Clear (Clear) Urine pH 5.5 (5.0-9.0) Urine Specific [place] 1.027 (1.001-1.035) Urine Protein Trace (Negative) H Urine Ketones 1+ (Negative) H Urine Blood Negative /uL (Negative) Urine Nitrite Negative (Negative) Urine Bilirubin Negative (Negative) Urine Urobilinogen 4 mg/dL (Negative) H Urine Leukocyte Esterase Negative /uL (Negative) Urine RBC 2 /hpf (0 - 3) Urine WBC <1 /hpf (0 - 3) Urine Squamous Epithelial Cells None seen /hpf (<5) Urine Bacteria None seen /hpf (None Seen) Urine Mucus Few (None Seen) Urine Glucose Normal mg/dL (Normal) Assessment/Plan Assessment/Plan # Acute comminuted right greater trochanter fracture- Ortho Consult noted, no surgery # Fall # Parkinsons with dementia features # Chronic A-Fibb- Cont Coreg, HOLD Eliquis, Lovenox # Goals of care discussed with patient and SON- DNR/DNI Plan discussed with: Patient My Orders Orders - SAILAJA MUÑOZ MD Procedure Category Date Status Time Pt Request For Service PT 05/17/24 Logged 15:48 * Radiologic Technologist CONS 05/18/24 Transmitted Consult Date of Service: May 18, 2024 Billing Provider: SAILAJA MUÑOZ MD Common Visit Codes: [id number] INP/OBS CARE(MOD) SAILAJA MUÑOZ MD May 18, 2024 15:06
[2024-05-19] VITALS (7 sets, daily range): BP systolic 119–159; BP diastolic 78–92; PULSE 92–113; RESP 20; TEMP 98.8–99.9; O2SAT 92–96
--- NOTE | 2024-05-19 10:42 | DVHDS2 ---
Discharge Summary Date of Admission May 15, 2024 at 16:24 Date of Discharge: May 19, 2024 Labs/Diagnostic Data: Laboratory Results Test 05/18/24 05:41 05/17/24 17:53 05/17/24 05:54 05/16/24 05:59 White Blood Count 4.3 10^3/uL (4.4-10.8) Red Blood Count 3.64 10^6/uL (4.5-5.90) Hemoglobin 11.8 g/dL (13.5-17.5) Hematocrit 34.7 % (41.0-53.0) Mean Corpuscular Volume 95.3 fL (80.0-100.0) Mean Corpuscular Hemoglobin 32.3 pg (28.0-32.0) Mean Corpuscular Hemoglobin Concent 33.9 g/dL (32.0-36.0) Red Cell Distribution Width 14.6 % (11.8-14.3) Platelet Count 95 10^3/uL (140-450) Mean Platelet Volume 9.9 fL (6.9-10.8) Neutrophils (%) (Auto) % (37.0-80.0) Lymphocytes (%) (Auto) % (10.0-50.0) Monocytes (%) (Auto) % (0.0-12.0) Basophils (%) (Auto) % (0.0-2.0) Neutrophils # (Auto) 10 ^3/uL (1.6-8.6) Lymphocytes # (Auto) 10 ^3/uL (0.4-5.4) Monocytes # (Auto) 10 ^3/uL (0-1.3) Differential Total Cells Counted 100.0 (100) Neutrophils % (Manual) 55 (37.0-80.0) Band Neutrophils % (Manual) 1 Lymphocytes % (Manual) 16 (10.0-50.0) Monocytes % (Manual) 24 (0-12) Eosinophils % (Manual) 4 (0-7) Basophils % (Manual) 0 (0.0-2.0) Metamyelocytes % (manual) 0 Myelocytes % (Manual) 0 Promyelocytes % (Manual) 0 Blast Cells % (Manual) 0 Reactive Lymphocytes 0 Platelet Estimate Decreased Large Platelets Few Sodium Level 138 mmol/L (136-145) Potassium Level 4.2 mmol/L (3.5-5.1) Chloride Level 105 mmol/L (98-107) Carbon Dioxide Level 27 mmol/L (20-31) Anion Gap 6 (5-15) Blood Urea Nitrogen 22 mg/dL (9-23) Creatinine 0.76 mg/dL (0.700-1.30) Glomerular Filtration Rate Calc 89 mL/min (>90) BUN/Creatinine Ratio 28.9 (10.0-20.0) Serum Glucose 86 mg/dL (74-106) Calcium Level 9.3 mg/dL (8.7-10.4) Magnesium Level 2.0 mg/dL (1.6-2.6) Influenza Type A Antigen Negative (Negative) Influenza Type B Antigen Negative (Negative) SARS-CoV-2 Antigen (Rapid) Negative (NEGATIVE) B-Type Natriuretic Peptide 322.91 pg/mL (0-100) Eosinophils (%) (Auto) 1.3 % (0.0-7.0) Eosinophils # (Auto) 0.1 10 ^3/uL (0-0.8) Basophils # (Auto) 0 10 ^3/uL (0-0.2) Nucleated Red Blood Cells 0.1 % Total Bilirubin 2.0 mg/dL (0.2-1.0) Aspartate Amino Transferase (AST) 21 U/L (13-40) Alanine Aminotransferase (ALT) 9 U/L (7-40) Alkaline Phosphatase 72 U/L (46-116) Total Protein 6.7 g/dL (5.7-8.2) Albumin 3.8 g/dL (3.2-4.8) Vitamin D 25-Hydroxy 35.9 ng/mL (30.0-100) Test 05/15/24 10:14 05/15/24 08:00 Red Blood Cell Morphology Normal Prothrombin Time 12.3 sec (9.3-11.8) Prothrombin Time INR 1.18 (0.9-1.15) Activated Partial Thromboplast Time 32.6 SEC (24.5-34.5) Troponin I High Sensitivity < 3 ng/L (</=54) Urine Color Yellow (Yellow) Urine Clarity Clear (Clear) Urine pH 5.5 (5.0-9.0) Urine Specific [place] 1.027 (1.001-1.035) Urine Protein Trace (Negative) Urine Ketones 1+ (Negative) Urine Blood Negative /uL (Negative) Urine Nitrite Negative (Negative) Urine Bilirubin Negative (Negative) Urine Urobilinogen 4 mg/dL (Negative) Urine Leukocyte Esterase Negative /uL (Negative) Urine RBC 2 /hpf (0 - 3) Urine WBC <1 /hpf (0 - 3) Urine Squamous Epithelial Cells None seen /hpf (<5) Urine Bacteria None seen /hpf (None Seen) Urine Mucus Few (None Seen) Urine Glucose Normal mg/dL (Normal) Other Laboratory Tests 05/18/24 05:41 Brief Hx & Hospital Course: Final diagnoses: # Acute comminuted right greater trochanter fracture- Ortho Consult noted, no surgery # Fall # Parkinsons with dementia features # Chronic A-Fibb- Cont Coreg, HOLD Eliquis, Lovenox DC home with hospice Condition at Discharge: Poor Final Diagnosis/Problems List Acute comminuted right greater trochanter fracture- Ortho Consult noted, no surgery Fall Parkinsons with dementia features Chronic A-Fibb- Cont Coreg, HOLD Eliquis, Lovenox Discharge Disposition: Hospice - Home SNF Discharge Will this Physician continue t: No Discharge Instruct/Medications Diet: Regular Activity: No Restrictions, As Tolerated Follow Up/Referral: HOSPICE MD Medications: PER HOSPICE Discharge Statement: "Patient was advised to return to the ER or call 911 if any headaches, dizziness, shortness of breath, chest pain, abdominal pain, bleeding, fevers, or worsening of medical condition. Patient was counseled about treatment plan, medications, possible side effects, patientverbalized understanding. All questions were answered to the best of my ability. This discharge took greater then 30 minutes in planning, reviewing documentation, counseling the patient, and discussing with other team members." ASSESSMENT ASSESSMENT Assessment Acute comminuted right greater trochanter fracture- Ortho Consult noted, no surgery Fall Parkinsons with dementia features Chronic A-Fibb- Cont Coreg, HOLD Eliquis, Lovenox Date of Service: May 19, 2024 Billing Provider: SHERRIE JONES MD Common Visit Codes: [id number] DISCH DAY >30min SHERRIE JONES MD May 19, 2024 10:42
== END 2024-05-19 15:10 | disposition hospice, home (50) | DRG 536 ==
LOC: ER 06:32 → EDBD 06:32 → TELE 16:24 → TELE-WESTW 05-16 18:11
PROVIDERS: ADMIT Internal Medicine; ATTEND Internal Medicine
DX: S72.111A Displaced fracture of greater trochanter of right femur, initial encounter for closed fracture (principal); I48.11 Longstanding persistent atrial fibrillation; G20.A1 Parkinson's disease without dyskinesia, without mention of fluctuations; I49.3 Ventricular premature depolarization; F02.80 Dementia in other diseases classified elsewhere, unspecified severity, without behavioral disturbance, psychotic disturbance, mood disturbance, and anxiety; W18.39XA Other fall on same level, initial encounter; Z20.822 Contact with and (suspected) exposure to COVID-19; N40.0 Benign prostatic hyperplasia without lower urinary tract symptoms; I11.0 Hypertensive heart disease with heart failure; K21.9 Gastro-esophageal reflux disease without esophagitis; J44.9 Chronic obstructive pulmonary disease, unspecified; G30.9 Alzheimer's disease, unspecified; I16.0 Hypertensive urgency; I27.20 Pulmonary hypertension, unspecified; Z79.891 Long term (current) use of opiate analgesic; Z79.899 Other long term (current) drug therapy; Z82.49 Family history of ischemic heart disease and other diseases of the circulatory system; Y93.89 Activity, other specified; Y99.8 Other external cause status; Z80.0 Family history of malignant neoplasm of digestive organs; Z85.46 Personal history of malignant neoplasm of prostate; Y92.009 Unspecified place in unspecified non-institutional (private) residence as the place of occurrence of the external cause
CPT/HCPCS: 36415; 70450; 71045; 73000; 73030; 73700; 80048; 80053; 81001; 82306; 83735; 83880; 84484; 85007; 85025; 85027; 85610; 85730; 87426; 87804; 93005; 93306; 94640; 97163; G0378

== ENCOUNTER 2024-08-10 17:39 | Inpatient (IN) | payer OTHER ==
[~2024-08-10] VITALS: Ht 182.9 cm; Wt 62.5 kg
[~2024-08-10 17:39] MED LIST changes: +FAMO-12 PO; +LISI10TA34 PO
[2024-08-11] VITALS (17 sets, daily range): BP systolic 112–163; BP diastolic 51–96; PULSE 75–106; RESP 15–18; TEMP 97.8–99.4; O2SAT 92–100
[2024-08-11] MEDS ORDERED: NITROGLYCERIN 0.4 MG SL TAB SL PRN (01:15)
[2024-08-11] MEDS ORDERED: ACETAMINOPHEN 500 MG TAB or CAP PO PRN (01:15)
[2024-08-11] MEDS ORDERED: HYDROcodone-ACET 5/325MG TAB PO PRN (01:15)
[2024-08-11] MEDS ORDERED: HEPARIN SODIUM (PORCINE) 5000 UNITS/ML 1ML VIAL IV ONE (01:15)
[2024-08-11] MEDS ORDERED: MORPHINE SULFATE INJ 2 MG/ml SYRG IV PRN ×2 (01:15)
[2024-08-11] MEDS ORDERED: HEPARIN DRIP/D5W 100UNITS/ML 250 ML IV SCH (01:15)
--- NOTE | 2024-08-11 01:20 | DVHHPRES ---
History of Present Illness Resident Creating Document: SOHAIL LITTLE RESIDENT History of Present Illness Mr. Manning is a 84-year-old male with past medical history of persistent atrial fibrillation on anticoagulation, pulmonary hypertension, Parkinson's dementia, hypertension, previous history of prostate cancer, GERD, thrombocytopenia, right comminuted right greater trochanteric fracture 04/2024 was admitted at [facility] on 08/09 in nose being transferred to [facility]. Patient initially presented with a reported fall injury unclear mechanisms in his home by family on the ground for which EMS was fall in securely transferred to [facility] CT head was unremarkable at [facility]. Initial EKG showed AFib with RVR, ventricular rate 146. Patient was started on IV amiodarone and metoprolol 50 mg twice daily. BNP was in the did not 2300. WBC 4.8, platelets 90. patient was kept in ICU. CT cervical, thoracic, lumbar spine was performed which revealed no acute fractures or dislocation. Patient had 2 cm right eyebrow laceration which was repaired. Patient's hemoglobin was 6.7 for which he received [address] of G right showed acute comminuted right femur intertrochanteric fracture on those with has been present during the previous admission at [facility] in April 2024 and orthopedics recommended. Echo was completed on 08/10 at [facility] which showed LVEF 55%. Lad was moderately dilated. RA moderately dilated. Rule out echogenic structure in right atrium seen in subcostal view. Consistent with a mass versus clot/thrombus in transit. Patient was transferred to this facility for further workup of right atrium mass versus clot. On arrival, patient is altered, A&O x1, only oriented to his name. Patient does have dementia Parkinson's at baseline. Tried to contact family, did not chart picker. CT head, ammonia, ABG, UDS ordered. Anticoagulation can not be resumed at this point given anemia and thrombocytopenia. Past medical history:persistent atrial fibrillation on anticoagulation, pulmonary hypertension, Parkinson's dementia, hypertension, previous history of prostate cancer, GERD, thrombocytopenia, right comminuted right greater trochanteric fracture 04/2024 Review of system in detail history is unknown given patient is altered. Review of Systems Allergies: Coded Allergies: No Known Drug Allergy (Verified Allergy, Unknown, 02/17/21) Exam Vital Signs Vital Signs Date Time Temp Pulse Resp B/P (MAP) Pulse Ox O2 Delivery O2 Flow Rate FiO2 4/18/25 00:37 97.9 75 17 134/51 (78) 98 97.9 Exam Elderly male patient lying in bed, in no acute distress. Right forehead sutures seen. General: Cachectic-looking, afebrile, palor, mucosae are moist Cardiovascular: Iregular but rate controlled S1 and S2. No murmurs, gallops or rubs. No JVD elevation. No pedal edema Respiratory: Bilateral crackles heard on auscultation. No pedal edema. On room air. Abdomen: Soft, nontender, nondistended, normoactive bowel sounds, no rebound tenderness, no organomegaly, no masses Genitourinary: Deferred MSK/skin: Mobilizes 4 limbs. Skin is dry and warm. Multiple bruising seen on bilateral arm Neurological: No motor, no sensitive deficits, normal speech. Pupils are isocoric and reactive. Psych/Mental Status: A/Ox1, only oriented to name Assessment/Plan Assessment/Plan Acute Metabolic encephalopathy Status post mechanical fall 08/09 right comminuted right greater trochanteric fracture 04/2024 Right atrial mass echogenic structure versus clot Acute blood loss anemia status post 2 packed RBC transfusion at [facility] Thrombocytopenia Probable Right upper lobe Gram-negative pneumonia Persistent AFib, rate controlled History of Parkinson's dementia Pulmonary hypotension Hypertension History of prostate cancer Secondary hypercoagulable state L2 compression fracture Imaging: CT head at [facility] unremarkable CT abdomen pelvis at [facility] showed acute comminuted right femur intertrochanteric fracture. No dislocation. Patchy opacities right upper lobe may represent pulmonary contusion versus infectious etiology. Patchy opacity in right lower lobe lung base may represent atelectasis or pneumonia. Nodular opacity in right upper lobe measuring 1.2 cm can not exclude pulmonary nodule. Bladder diverticulum. Hepatic congestion versus artifact. CT cervical spine unremarkable CT lumbar spine showed L2 compression fractures of the superior and inferior endplates appears chronic Chest x-ray [facility] showed multiple lobe patchy opacities Plan: Continue IV ceftriaxone and IV azithromycin for probable pneumonia Echocardiogram 08/10 at [facility] showed dilated RA, dilated RV, echogenic structure in right atrium seen in subcostal view. Rule out mass versus clot versus thrombus Cardiology consulted for BREANNE Anticoagulation hold given anemia and thrombocytopenia AFib is rate controlled, holding amiodarone given the right atrium clot versus mass Stool occult negative Follow up with a chest x-ray, head CT, ammonia WNL, ABG pending Follow up with Orthopedic surgery for greater trochanteric right-sided fracture and L2 compression fracture IV ceftriaxone and azithromycin for right upper lobe pneumonia seen on chest x- ray at [facility] Consulted radiologist for IVC filter Diet NPO Famotidine 40 mg daily Plan discussed with nurse in which all questions have been answered Tried to reach out to family, call not picked up Case discussed with Dr. Dunne Plan discussed with: Patient My Orders Orders - SOHAIL LITTLE RESIDENT Procedure Category Date Status Time Admit ADMIT 08/11/24 Transmitted 01:12 Nitroglycerin PHA 08/11/24 Transmitted Sublingual (Ntrostat 01:15 Morphine Sulfate PHA 08/11/24 Transmitted Injection 01:15 Oxygen By Nasal RT 08/11/24 Transmitted Cannula 01:12 Stat Ekg For Chest [facility] 08/11/24 In Process Pain 01:12 Notify Md Of Changes [facility] 08/11/24 In Process From Base 01:12 Protector Plate Attacher For [facility] 08/11/24 In Process 24 Hours 01:12 Emergency Dysrhythmia [facility] 08/11/24 In Process Protocol 01:12 Rhythm Strips Once [facility] 08/11/24 In Process Every Shift 01:12 Complete Blood Count LAB 08/11/24 Transmitted 01:12 Comprehensive LAB 08/11/24 Transmitted Metabolic Panel 01:12 Drug Screen LAB 08/11/24 Transmitted 01:12 Hepatic Panel LAB 08/11/24 Transmitted 01:12 Magnesium LAB 08/11/24 Transmitted 01:12 Thyroid Stimulating LAB 08/11/24 Transmitted Hormone 01:12 Urinalysis LAB 08/11/24 Transmitted 01:12 Npo (Nothing By DIET 08/11/24 Transmitted Mouth) Diet Breakfast * Cardiology Consult CONS 08/11/24 Transmitted 01:12 Type And Screen BBK 08/11/24 Transmitted 01:12 Electrocardigram EKG 08/11/24 Transmitted 01:12 Platelet Monitoring TYLER 08/11/24 In Process 01:12 Vte Protocol Initiated [facility] 08/11/24 In Process 01:12 Heparin Per TYLER 08/11/24 In Process Standardized Proce 01:12 Discontinue All Im TYLER 08/11/24 In Process Injections 01:12 PTPTT LAB 08/11/24 Transmitted 01:12 Complete Blood Count LAB 08/11/24 Transmitted 01:12 Heparin Sodium PHA 08/11/24 Transmitted (Porcine) 01:15 Heparin Drip/D5w PHA 08/11/24 Transmitted 100units/Ml 01:15 Tylenol 500mg PHA 08/11/24 Transmitted 01:15 Export 5/325mg PHA 08/11/24 Transmitted 01:15 Morphine 1mg PHA 08/11/24 Transmitted 01:15 R Femur Xray XY 08/11/24 Transmitted 01:12 R Knee 2v Xray XY 08/11/24 Transmitted 01:12 Chest Xray 1 View XY 08/11/24 Transmitted 01:12 Date of Service: Aug 10, 2024 Billing Provider: SAILAJA DUNNE MD Common Visit Codes: [id number] INP/OBS CARE (HIGH) Secondary Visit Codes: [id number] CARE PLAN 30 MINUTES SOHAIL LITTLE RESIDENT Aug 11, 2024 01:20 SAILAJA DUNNE MD Aug 11, 2024 10:13
--- NOTE | 2024-08-11 02:10 | ECG ---
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
[2024-08-11 02:27] LABS: Basophils # (auto) 0 10 ^3/uL (0-0.2); Basophils % (auto) 0.3 % (0.0-2.0); Eosinophils # (auto) 0 10 ^3/uL (0-0.8); Eosinophils % (auto) 0.3 % (0.0-7.0); Hemoglobin 7.6 g/dL (13.5-17.5); Platelet Count (auto) 70 10^3/uL (140-450); Red Cell Distribution Width 19.3 % (11.8-14.3)
[2024-08-11 02:29] LABS: Hematocrit 22.8 % (41.0-53.0); Lymphocytes # (auto) 0.6 10 ^3/uL (0.4-5.4); Lymphocytes % (auto) 10.4 % (10.0-50.0); Mean Corpuscular Hemoglobin 31.6 pg (28.0-32.0); Mean Corpuscular Hgb Conc. 33.3 g/dL (32.0-36.0); Monocytes # (auto) 1.1 10 ^3/uL (0-1.3); Monocytes % (auto) 17.9 % (0.0-12.0); Neutrophils # (auto) 4.3 10 ^3/uL (1.6-8.6); Neutrophils % (auto) 71.1 % (37.0-80.0); Nucleated Red Blood Cells % 0.1 %
[2024-08-11 02:47] LABS: Alanine Aminotransferase 14 U/L (7-40); Albumin 3.3 g/dL (3.2-4.8); Alkaline Phosphatase 47 U/L (46-116); Anion Gap 6 (5-15); Aspartate Aminotransferase 28 U/L (13-40); BUN/Creatinine Ratio 26.1 (10.0-20.0); Blood Urea Nitrogen 18 mg/dL (9-23); Calcium 9.1 mg/dL (8.7-10.4); Carbon Dioxide 26 mmol/L (20-31); Chloride 105 mmol/L (98-107); Glucose 98 mg/dL (74-106); Magnesium 1.8 mg/dL (1.6-2.6); Potassium 4.2 mmol/L (3.5-5.1); Sodium 137 mmol/L (136-145); Total Protein 5.7 g/dL (5.7-8.2)
[2024-08-11 02:50] LABS: INR 1.24 (0.9-1.15); Partial Thromboplastin Time 32.4 SEC (24.5-34.5); Prothrombin Time 12.9 sec (9.3-11.8)
[2024-08-11 03:02] LABS: Bilirubin, Total 1.3 mg/dL (0.2-1.0)
[2024-08-11] MEDS: QUEtiapine FUMARATE 25 MG TAB PO ONE (03:45)
[2024-08-11 04:19] LABS: Bilirubin, Direct 0.7 mg/dL (<0.3)
[2024-08-11 04:43] LABS: COVID19 ANTIGEN SOFIA FIA NEGATIVE (NEGATIVE)
--- NOTE | 2024-08-11 05:07 | DVH ---
EXAM: CT STROKE CTH INDICATION: Stroke. TECHNIQUE: CT of the head without intravenous contrast. Coronal and sagittal reformatted images are s ubmitted. Radiation Dose : 1. Head: CT Dose: CTDI volume is 57.4 mGy. Dose-length product is 1013.7 mGy*cm The dose indicators for CT are the volume Computed Tomography (CT) Dose Index (CTDIvol) and the Dose Length Product (DLP), and are measured in units of mGy and mGy-cm, respectively. These indicators are not patient dose, but values generated from the CT scanner acquisition factors. The report includes radiation exposure data for exposures received during this examination. All CT scans at this medical facility are performed using dose modulation techniques as appropriate to a performed exam including the following: Automated exposure control was utilized; adjustment of the MA and/or KV according to patient size; and use of iterative reconstruction technique. COMPARISON: CT HEAD WITHOUT CONTRAST on DOS: 05/17/24, CT HEAD WITHOUT CONTRAST on DOS: 09/25/23 FINDINGS: There is no evidence of acute intracranial hemorrhage, extra-axial collection, mass effect, midline s hift, herniation or hydrocephalus. There are periventricular and subcortical hypodensities, nonspecific, but likely reflecting sequelae of chronic microvascular ischemic changes. The ventricles, sulci and cisterns are age appropriate. The roche-white differentiation is intact. The visualized paranasal sinuses and mastoid air cells are clear. No depressed calvarial fracture. The surrounding soft tissues are unremarkable. IMPRESSION: 1. No evidence of acute intracranial abnormality.
[2024-08-11] MEDS: CYANOCOBALAMIN (B-12) 1000 MCG/1 ML VIAL IM ONE (06:53)
[2024-08-11] MEDS: ERGOCALCIFEROL 50,000 UNIT(1.25MG) CAP PO SCH (06:54)
[2024-08-11] MEDS: cefTRIAXone 1GM/50ML D5W 50 ML IV SCH (09:40)
[2024-08-11] MEDS ORDERED: AZITHROMYCIN 500MG/ 250ML 250 ML IV SCH (10:00)
[2024-08-11] MEDS ORDERED: amLODIPine BESYLATE 5 MG TAB PO SCH (10:00)
[2024-08-11] MEDS: PANTOPRAZOLE 40 MG/10 ML VIAL INJ IV SCH (10:00)
[2024-08-11] MEDS ORDERED: SACUBITRIL-VALSARTAN 24mg/26mg TAB PO SCH (10:00)
[2024-08-11 10:14] LABS: % Iron Saturation 17.4 % (20-55)
[2024-08-11] MEDS: OPTISON 3ml Vial for INJ IV ONE (10:25)
[2024-08-11] MEDS: IODIXANOL 320MG/ML 100ML BTL IV ONE (10:48)
[2024-08-11] MEDS: fentaNYL CITRATE 100 MCG/2 ML VL ONE (10:59)
[2024-08-11] MEDS: MIDAZOLAM HCL 2MG/2ML 2ml VIAL (1mg/ml) ONE (11:00)
[2024-08-11] MEDS: LIDOCAINE 2%HCL (LOCAL ANESTH.) INJ 20ML MDV ONE (11:00)
--- NOTE | 2024-08-11 11:46 | DVH ---
CHEST RADIOGRAPH Indication: PNA Technique: Single frontal view of the chest was obtained Comparison: XY CHEST PORTABLE on DOS: 05/15/24, XY CHEST PORTABLE on DOS: 03/28/23 FINDINGS: Lines and Tubes: None Lungs: No focal consolidation. Pleura: No effusion. No pneumothorax. Cardiomediastinal contours: Unremarkable Bones: No acute osseous abnormality. IMPRESSION: No acute cardiopulmonary disease.
[2024-08-11] MEDS: SODIUM CHLORIDE 0.9% 1,000 ML IV SCH (13:47)
--- NOTE | 2024-08-11 13:53 | DVHPNRES ---
Progress Note Date Seen: Aug 11, 2024 Resident Creating Document: BENJI PALUMBO RESIDENT Medical Necessity Reason Pt with a Central, PICC or Fol: No Subjective Review of Systems H&P: Mr. Manning is a 84-year-old male with past medical history of persistent atrial fibrillation on anticoagulation, pulmonary hypertension, Parkinson's dementia, hypertension, previous history of prostate cancer, GERD, thrombocytopenia, right comminuted right greater trochanteric fracture 04/2024 was admitted at [facility] on 08/09 in nose being transferred to [facility]. Patient initially presented with a reported fall injury unclear mechanisms in his home by family on the ground for which EMS was fall in securely transferred to [place] CT head was unremarkable at [place]. Initial EKG showed AFib with RVR, ventricular rate 146. Patient was started on IV amiodarone and metoprolol 50 mg twice daily. BNP was in the did not 2300. WBC 4.8, platelets 90. patient was kept in ICU. CT cervical, thoracic, lumbar spine was performed which revealed no acute fractures or dislocation. Patient had 2 cm right eyebrow laceration which was repaired. Patient's hemoglobin was 6.7 for which he received [address] of G right showed acute comminuted right femur intertrochanteric fracture on those with has been present during the previous admission at [facility] in April 2024 and orthopedics recommended. Past medical history:persistent atrial fibrillation on anticoagulation, pulmonary hypertension, Parkinson's dementia, hypertension, previous history of prostate cancer, GERD, thrombocytopenia, right comminuted right greater trochanteric fracture 04/2024 Echo was completed on 08/10 at [place] which showed LVEF 55%. Lad was moderately dilated. RA moderately dilated. Rule out echogenic structure in right atrium seen in subcostal view. Consistent with a mass versus clot/thrombus in transit. Patient seen and examined at bedside. Patient is AAO time once only. Alert. Not oriented to time place and person. Has underlying baseline of dementia/Parkinson's disease. Not able to obtain information from family as well as they did not brick picker call Objective vital signs Vital Sign Date Time Temp Pulse Resp B/P (MAP) Pulse Ox O2 Delivery O2 Flow Rate FiO2 08/11/24 13:14 81 18 145/85 (105) 99 08/11/24 12:05 98.7 98.7 08/11/24 08:00 Room Air* 0 21 Total Intake and Output 08/10/24 08/10/24 08/11/24 14:59 22:59 06:59 Intake Total 20 ml Balance 20 ml medications Current Medications Medications Dose Ordered Sig/Amanda Route Start Time Stop Time Status Last Admin Dose Admin Nitroglycerin 0.4 mg Q5MINP PRN SL 08/11/24 01:15 Morphine Sulfate 2 mg Q30M PRN IV 08/11/24 01:15 Acetaminophen 500 mg Q4HPRN PRN PO 08/11/24 01:15 Acetaminophen/ Hydrocodone Bitart 1 tab Q4HPRN PRN PO 08/11/24 01:15 Morphine Sulfate 1 mg Q4HPRN PRN IV 08/11/24 01:15 Ergocalciferol 50,000 unit Q7D PO 08/11/24 06:15 08/11/24 06:54 50,000 UNIT Ceftriaxone Sodium 50 ml @ 100 mls/hr DAILY@09 IV 08/11/24 09:00 08/11/24 09:40 100 MLS/HR Pantoprazole Sodium 40 mg DAILY IV 08/11/24 10:00 Sodium Chloride 1,000 ml @ 75 mls/hr [id number] IV 08/11/24 10:45 Sodium Chloride 10 ml Q8HR IV 08/11/24 14:00 UNV Examination General Appearance: Confused, not following commands. Multiple bruises over his upper arm. Head Exam: Normal inspection Neck Exam: Normal inspection. Non-tender. Normal alignment Pulmonary/Respiratory: Chest non-tender. Clear bilateral breath sounds Cardiovascular/Chest: Irregular rate and rhythm. No murmurs. No JVD. Peripheral Pulses: 2+ Radial (R). 2+ Radial (L). 2+ Pedal (R). 2+ Pedal (L) Abdominal Exam: Normal bowel sounds. Soft. Nontender. No hepatospenomegaly. No masses Ankle Exam: Negative ankle edema Lower extremities: Negative lower extremity edema Neuro/Mental Status: A&O x1. laboratory and microbiology Laboratory Tests 08/11/24 02:15 Test 08/11/24 02:15 Range/Units Serum Glucose 98 74-106 mg/dL Problem List/Assessment/Plan Problem List/Assessment/Plan Acute Metabolic encephalopathy Acute on chronic anemia Acute blood loss anemia status post 2 packed RBC transfusion at [facility] Status post mechanical fall 08/09 right comminuted right greater trochanteric fracture 04/2024 Right atrial mass echogenic structure versus clot Pulmonary hypertension Thrombocytopenia Ruled out Right upper lobe Gram-negative pneumonia Persistent AFib, rate controlled History of Parkinson's dementia History of prostate cancer Secondary hypercoagulable state L2 compression fracture Hypertension Plan: Continue IV ceftriaxone , DC azithromycin given prolong QT. Cardiology consultation has been done for BREANNE. Questionable mass in right atrium. Echocardiogram 08/10 at [place] showed dilated RA, dilated RV, echogenic structure in right atrium seen in subcostal view. IVC filter inserted on 08/11/2024 Hold anticoagulation given severe anemia, PRBC of 2 units given at [place], thrombocytopenia at 70. AFib is rate controlled, holding amiodarone given the right atrium clot versus mass Stool occult negative Follow up with Orthopedic surgery for greater trochanteric right-sided fracture and L2 compression fracture CT head : No acute intracranial abnormality CT abdomen pelvis at [place]' showed acute comminuted right femur intertrochanteric fracture. No dislocation. Patchy opacities right upper lobe may represent pulmonary contusion versus infectious etiology. Patchy opacity in right lower lobe lung base may represent atelectasis or pneumonia. Nodular opacity in right upper lobe measuring 1.2 cm can not exclude pulmonary nodule. Bladder diverticulum. Hepatic congestion versus artifact. CT cervical spine unremarkable CT lumbar spine showed L2 compression fractures of the superior and inferior endplates appears chronic Chest x-ray [place] showed multiple lobe patchy opacities Diet NPO given patient is altered. Famotidine 40 mg daily Called family, however did not brick picker the call. patient is DNI/DNR. Case discussed with Dr. Dunne Plan discussed with: Other (RN) My Orders My Orders Orders - BENJI PALUMBO RESIDENT Procedure Category Date Status Time Pantoprazole PHA 08/11/24 In Process (Protonix) 10:00 Insert White Catheter TYLER 08/11/24 In Process 09:24 Blood Culture ASHLEY 08/11/24 In Process 09:26 Sodium Chloride 0.9% PHA 08/11/24 In Process 10:45 Initiate Vte TYLER 08/11/24 In Process Prophylaxis 11:38 * Wound Consult CONS 08/11/24 Transmitted 11:38 * Dietary Consult CONS 08/11/24 Transmitted 11:38 Date of Service: Aug 11, 2024 Billing Provider: SAILAJA DUNNE MD Common Visit Codes: [id number] INP/OBS CARE(HIGH) Secondary Visit Codes: [id number] CARE PLAN 30 MINUTES BENJI PALUMBO RESIDENT Aug 11, 2024 13:53 SAILAJA DUNNE MD Aug 11, 2024 14:21
[2024-08-11] MEDS: SODIUM CHLOR 0.9% PF (SALINE LOCK) 10ML VIAL/SYR IV SCH (14:00)
--- NOTE | 2024-08-11 16:06 | DVH ---
XY INFERIOR VENA CAVA FILTER, HISTORY: IVC FILTER PLACEMENT with femoral neck fracture, A fib on anticoagulation, Anemia requiring 2 units pRBC, thrombocytopenia and unable to anticoagulate. PROCEDURE: Informed consent was obtained. The patient was placed on the fluoroscopic table in supine position. The right groin was prepped with chlorhexidine which was allowed to dry and draped in the u sual sterile fashion. Time out was performed. Following administration of 1% local lidocaine, the com mon femoral vein was accessed with a micropuncture set under ultrasound guidance, and an image docume nting patency sent to PACS. A 5 [place] pigtail catheter was placed into the upper left common iliac v ein. A cavogram was performed and the level of the renal veins were identified. The catheter was exch anged for a 9.6 [place] introducer sheath, and a Bard G2 Cinthia IVC filter was deployed in an infraren al location. The introducer sheath was removed and the venotomy closed with manual compression. Post- deployment image was obtained. No immediate complication was identified. DAP 116.1 FLUOROSCOPY TIME: 1.5 minutes. CONTRAST USED: 15 mL . SEDATION: Dr. Moon Henning was personally responsible for the administration of moderate sedation during the procedure performed, including the use of an independent trained observer who had no other duties during the procedure. The drugs utilized were IV fentanyl and versed (see nursing log for details). The total time of supervision by the attending physician was approximately 30 minutes. FINDINGS: There is a patent single IVC visualized without intraluminal filling defect. No renal venou s anomaly is noted. Post-procedure image demonstrates good positioning of the IVC filter in an infrar enal position. IMPRESSION: Infra-renal IVC filter placement. PLAN: Consideration should be made for removal of this retrievable filter after and if medical necess ity for caval filtration is no longer present. If we in IR are unable to contact the patient in a lydia felicity fashion, please contact our office, and we will attempt to arrange for filter retrieval at the ea rliest convenience.
--- NOTE | 2024-08-11 16:21 | DVHINCON2 ---
Date Seen: Aug 11, 2024 Referring Physician MD Abran resident Reason for Consultation Afib, ?RA mass History of Present Illness This is an 84-year-old male patient who presents to this facility as a transfer from [facility]. The patient was initially taken to the emergency room for a mechanical fall that he sustained at home. At the time of assessment, the patient is altered and unable to answer all questions. The patient's son who was at bedside is able to provide past medical history. Per the patient's son, the patient had a mechanical fall in April 2024 and sustained a right greater trochanteric fracture. Since that time, the patient has been mostly bed ridden. The patient's son reports that earlier this week he became mobile around the house. On the day of emergency room arrival to [facility], the patient was left alone and when family came back, they found the patient on the floor. EMS was called and the patient was taken to the nearest emergency room. He has been transferred to this facility due to insurance reasons. Cardiology has been consulted at this time for a questionable mass in the right atrium that was found on an echocardiogram at [facility]. Initial twelve lead electrocardiogram done at this facility is indiscernible due to poor quality in artifact in every lead. Continuous cardiac monitoring reveals that the patient is in atrial fibrillation with controlled rate at time of assessment. The patient denies any cardiac symptoms at time of assessment. Significant past medical history includes congestive heart failure, atrial fibrillation, hypertension, COPD, dementia, BPH, history of prostate cancer, and history of tobacco use. The patient's primary state appellate clerk was in the [facility] cardiac clinic. Past Medical History Past medical history reviewed. No other significant than mentioned above. Past Surgical History TURP Family History: FH: stomach cancer G8 MOTHER, Family History Family history reviewed. Social History Previous tobacco use, quit smoking over 30 years ago Previous alcohol use, quit over 30 years ago Denies any previous drug use Allergies: Coded Allergies: No Known Drug Allergy (Verified Allergy, Unknown, 02/17/21) Home Meds Active Scripts Hydrocodone-Acetaminophen (Hydrocodone Bitartrate/AC 5-325 mg) 1 Tab Tab, 1 TAB PO Q6HP PRN, #15 TAB Prov:JUSTO FERRARI PAC 05/13/24 Ibuprofen (Ibuprofen) 600 Mg Tab, 1 TAB PO Q6HP PRN, #20 TAB Prov:JUSTO FERRARI PAC 05/13/24 Albuterol Sulfate (VENTOLIN MDI) 90 Mcg Ih, 90 MCG IN Q6HPRN PRN for 30 Days, #30 INH Prov:SAILAJA MUÑOZ MD 03/30/23 Potassium Chloride (Potassium Chloride ER) 10 Meq Tab, 10 MEQ PO QAM for 7 Days, #7 TAB Prov:SAILAJA MUÑOZ MD 03/30/23 Furosemide (Lasix) 20 Mg Tb, 1 TAB PO QAM for 7 Days, #7 TAB 5 Refills Prov:SAILAJA MUÑOZ MD 03/30/23 Prednisone (Prednisone) 20 Mg Tab, 40 MG PO QAM for 5 Days, #5 MG Prov:SAILAJA MUÑOZ MD 03/30/23 Levofloxacin (Levaquin 750 mg) 750 Mg Tab, 1 TAB PO DAILY for 7 Days, #7 TAB Prov:SAILAJA MUÑOZ MD 03/30/23 Reported Medications Lisinopril (Lisinopril) 10 Mg Tab, 10 MG PO DAILY for 30 Days, MG 05/17/24 Famotidine (Famotidine) 20 Mg Tab, 40 MG PO HS for 30 Days, MG 05/17/24 Apixaban Base (ELIQUIS) 2.5 Mg Tab, 1 TAB PO BID 03/28/23 Amlodipine Besylate (NORVASC TABLET) 5 Mg Tb, 5 MG PO DAILY for BP, TAB 02/17/21 Tamsulosin Hcl (Tamsulosin Hcl) 0.4 Mg Cap, 0.4 MG PO QPM for PROSTATE for 30 Days, MG 02/17/21 Propranolol Hcl (Inderal La) 60 Mg Cap, 60 MG PO HS for A.FIB, CAP 02/17/21 Sacubitril-Valsartan (Entresto 24-26 mg) 1 Tab Tab, 1 TAB PO BID for BP, TAB 02/17/21 Hydrocodone-Acetaminophen ([place] 5/325MG) 1 Tab Tb, 1 TAB PO BID PRN for MODERATE PAIN (4-6 PAIN SCALE), #60 TAB 06/19/19 Omeprazole (Gnp Omeprazole) 20 Mg Tab, 1 TAB PO DAILY, #90 TAB 1 Refill 08/04/18 Nitroglycerin (Nitroglycerin Transdermal) 0.2 Mg/Hr Dis, 0.2 MG TD HS, DIS 08/04/18 Home Meds Home medications reviewed. Current Medications Current Medications Medications (Trade) Dose Ordered Sig/Amanda Route PRN Reason Start Time Stop Time Status Last Admin Nitroglycerin (Ntrostat Sublingual) 0.4 mg Q5MINP PRN SL FOR CHEST PAIN 08/11/24 01:15 Morphine Sulfate 2 mg Q30M PRN IV FOR CHEST PAIN 08/11/24 01:15 Heparin Sodium/ Dextrose 250 ml @ 11 mls/hr [id number] IV 08/11/24 01:15 08/11/24 03:21 DC Acetaminophen (Tylenol Tablet Or Capsule) 500 mg Q4HPRN PRN PO MILD PAIN (1-3 PAIN SCALE) 08/11/24 01:15 Acetaminophen/ Hydrocodone Bitart ([place] 5/325MG Tab) 1 tab Q4HPRN PRN PO MODERATE PAIN (4-6 PAIN SCALE) 08/11/24 01:15 Morphine Sulfate 1 mg Q4HPRN PRN IV SEVERE PAIN (7-10 PAIN SCALE) 08/11/24 01:15 Amlodipine Besylate (Norvasc Tablet) 5 mg DAILY PO 08/11/24 10:00 08/11/24 03:36 DC Famotidine (Pepcid Tablet) 40 mg HS PO 08/11/24 22:00 08/11/24 10:21 DC Sacubitril/ Valsartan (Entresto 24-26 Mg tab) 1 tab BID PO 08/11/24 10:00 08/11/24 03:36 DC Ergocalciferol (Vitamin D 50,000 Unit) 50,000 unit Q7D PO 08/11/24 06:15 08/11/24 06:54 Ceftriaxone Sodium 50 ml @ 100 mls/hr DAILY@09 IV 08/11/24 09:00 08/11/24 09:40 Azithromycin 250 ml @ 125 mls/hr DAILY IV 08/11/24 10:00 08/11/24 09:25 DC Pantoprazole Sodium (Protonix) 40 mg DAILY IV 08/11/24 10:00 Sodium Chloride 1,000 ml @ 75 mls/hr [id number] IV 08/11/24 10:45 08/11/24 13:47 Sodium Chloride (Saline Lock Ns) 10 ml Q8HR IV 08/11/24 14:00 08/11/24 14:00 Review of Systems Constitutional: No symptom reported Ears, Nose, & Throat: No symptom reported Eyes: No symptom reported Neurological: No symptoms reported Pulmonary/Respiratory: No symptoms reported Cardiovascular: No symptom reported Gastrointestinal: No symptom reported Genitourinary: No symptom reported Musculoskeletal: Generalized pain Skin: No symptom reported Psychiatric: No symptom reported Endocrine: No symptom reported Hematologic/Lymphatic: No symptom reported Vital Signs Vital Signs Date Time Temp Pulse Resp B/P (MAP) Pulse Ox O2 Delivery O2 Flow Rate FiO2 08/11/24 13:14 81 18 145/85 (105) 99 08/11/24 12:05 98.7 98.7 08/11/24 08:00 Room Air* 0 21 Physical Exam General Appearance: Cooperative. Thin Pulmonary/Respiratory: Clear, bilateral breaths sounds. Cardiovascular/Chest: Irregular rate and rhythm. Peripheral Pulses: 2+ Radial (R). 2+ Radial (L). 2+ Pedal (R). 2+ Pedal (L) Abdominal Exam: Normal bowel sounds. Ankle Exam: Negative ankle edema Lower extremities: Negative lower extremity edema Neuro/Mental Status: A/OX4, coherent. Thoughts/Psych: Normal thought pattern. Appropriate mood and affect. Good judgment and insight. Appearance: No acute distress. Skin Exam: Generalized ecchymosis to all extremities. Abrasion to right forehead Labs/Diagnostic Data Labs Test 08/11/24 04:00 08/11/24 03:50 08/11/24 03:40 08/11/24 02:15 Range/Units Stool Occult Blood Sample #3 Negative Negative Ammonia < 10 L 11-32 umol/L Troponin I High Sensitivity 9 </=54 ng/L SARS-CoV-2 Antigen (Rapid) Negative NEGATIVE White Blood Count 6.0 4.4-10.8 10^3/uL Red Blood Count 2.40 L 4.5-5.90 10^6/uL Hemoglobin 7.6 L 13.5-17.5 g/dL Hematocrit 22.8 L 41.0-53.0 % Mean Corpuscular Volume 95.0 80.0-100.0 fL Mean Corpuscular Hemoglobin 31.6 28.0-32.0 pg Mean Corpuscular Hemoglobin Concent 33.3 32.0-36.0 g/dL Red Cell Distribution Width 19.3 H 11.8-14.3 % Platelet Count 70 L 140-450 10^3/uL Mean Platelet Volume 9.8 6.9-10.8 fL Neutrophils (%) (Auto) 71.1 37.0-80.0 % Lymphocytes (%) (Auto) 10.4 10.0-50.0 % Monocytes (%) (Auto) 17.9 H 0.0-12.0 % Eosinophils (%) (Auto) 0.3 0.0-7.0 % Basophils (%) (Auto) 0.3 0.0-2.0 % Neutrophils # (Auto) 4.3 1.6-8.6 10 ^3/uL Lymphocytes # (Auto) 0.6 0.4-5.4 10 ^3/uL Monocytes # (Auto) 1.1 0-1.3 10 ^3/uL Eosinophils # (Auto) 0 0-0.8 10 ^3/uL Basophils # (Auto) 0 0-0.2 10 ^3/uL Nucleated Red Blood Cells 0.1 % Reticulocyte Count (auto) 2.49 H 0.5-1.5 % Prothrombin Time 12.9 H 9.3-11.8 sec Prothrombin Time INR 1.24 H 0.9-1.15 Activated Partial Thromboplast Time 32.4 24.5-34.5 SEC Sodium Level 137 136-145 mmol/L Potassium Level 4.2 3.5-5.1 mmol/L Chloride Level 105 98-107 mmol/L Carbon Dioxide Level 26 20-31 mmol/L Anion Gap 6 5-15 Blood Urea Nitrogen 18 9-23 mg/dL Creatinine 0.69 L 0.700-1.30 mg/dL Glomerular Filtration Rate Calc 91 >90 mL/min BUN/Creatinine Ratio 26.1 H 10.0-20.0 Serum Glucose 98 74-106 mg/dL Hemoglobin A1c 4.9 <5.7 % A1C Calcium Level 9.1 8.7-10.4 mg/dL Magnesium Level 1.8 1.6-2.6 mg/dL Iron Level 27 L 65-175 ug/dL Total Iron Binding Capacity 155 L 250-425 ug/dL Percent Iron Saturation 17.4 L 20-55 % Ferritin 386.6 H 22-322 ng/mL Total Bilirubin 1.3 H 0.2-1.0 mg/dL Direct Bilirubin 0.7 H <0.3 mg/dL Aspartate Amino Transferase (AST) 28 13-40 U/L Alanine Aminotransferase (ALT) 14 7-40 U/L Alkaline Phosphatase 47 46-116 U/L Lactate Dehydrogenase 249 H 120-246 U/L B-Type Natriuretic Peptide 477.93 0-100 pg/mL Total Protein 5.7 5.7-8.2 g/dL Albumin 3.3 3.2-4.8 g/dL Vitamin B12 Level 243 211-911 pg/mL Vitamin D 25-Hydroxy 31.1 30.0-100 ng/mL Thyroid Stimulating Hormone (TSH) 1.53 0.55-4.78 uIU/mL Assessment Rule out right atrial mass versus clot Persistent atrial fibrillation, Stage 3B, on low-dose Eliquis/propranolol Chronic HFpEF, NYHA class III Hypertension Pulmonary hypertension Severe anemia s/p PRBC (at [facility]) Thrombocytopenia Right greater trochanteric fracture on 04/2024 Dementia Plan/Recommendation We will continue with the following plan/recommendations (Dr. Rodarte): * Transthoracic echocardiogram to evaluate cardiac structure; r/o RA mass/clot * [id number] VASc score: 4 points, HAS-BLED: 2 points * Hold NOAC given severe anemia requiring PRBC infusion. * Patient is s/p IVC filter * Initiate low-dose beta-bertha for rate control, up titrate as tolerated * Avoid antiarrhythmic agent given atrial fibrillation is persistent and/or possible RA clot * Monitor and replete electrolytes as needed, keep potassium greater than four and magnesium greater than two * Close Cardiac surveillance Patient seen and examined at bedside with . Thank you for allowing us to care for this patient. Please call with any questions or concerns. Critical care time spent: 43 minutes This medical document was created using an electronic medical record system with voice recognition software and computerized dictation system. Although this document has been carefully reviewed, there might still be some phonetic and typographical errors. Occasional wrong-word or ``sound-alike substitutions may have occurred due to the inherent limitations of voice recognition software. These areas are purely typographical due to imperfections of the software programs and do not reflect any compromise in the patient's medical care. Please read the chart carefully and recognize, using context, where these substitutions have occurred. Plan discussed with: Patient, Son NYHA Physical activity limitations: NA Date of Service: Aug 11, 2024 Billing Provider: DIMPLE SMITH Cardiology Common Codes: [id number] INP/OBS CARE (High) Cardiology Consultation Codes: [id number] CONSULT <45MIN DIMPLE SMITH Aug 11, 2024 16:21
[2024-08-11 19:39] LABS: Urine Bacteria None Seen /hpf (None Seen)
[2024-08-11 19:55] LABS: Urine Blood TRACE /uL (Negative); Urine Clarity Clear (Clear); Urine Color Yellow (Yellow); Urine Hyaline Cast FEW /lpf (0 - 2); Urine Mucus FEW (None Seen); Urine Protein, UAD TRACE (Negative); Urine Squamous Epithelial Cell FEW /hpf (<5); Urine Urobilinogen 4 mg/dL (Negative); Urine WBC 27 /HPF (0-3); Urine pH 5.5 (5.0-9.0)
[2024-08-11 20:03] LABS: Opiate Scree,Urine Neg (NEGATIVE)
[2024-08-11 20:04] LABS: Amphetamine Screen, Urine Neg (NEGATIVE); Barbiturate Scree,Urine Neg (NEGATIVE); Benzodiazephine Screen, Urine Pos (NEGATIVE); Cannabinoid Screen, Urine Neg (NEGATIVE); Cocaine Screen, Urine Neg (NEGATIVE); Phencyclidine Screen, Urine Neg (NEGATIVE)
[2024-08-11] MEDS: METOPROLOL TARTRATE 25 MG TAB PO SCH (22:00)
[2024-08-11] MEDS ORDERED: FAMOTIDINE 20 MG TAB PO SCH (22:00)
--- NOTE | 2024-08-11 23:35 | DVHINCON2 ---
Date Seen: Aug 11, 2024 Referring Physician MD Abran resident Reason for Consultation Afib, ?RA mass History of Present Illness This is an 84-year-old male with a past medical history of congestive heart failure, atrial fibrillation, hypertension, COPD, dementia, BPH, history of prostate cancer, and history of tobacco use who presents to this facility as a transfer from [facility]. Patient was initially taken to the emergency dept for a mechanical fall that he sustained at home. At the time of assessment, the patient is altered and unable to answer all questions. The patient's son who was at bedside is able to provide past medical history. Per the patient's son, the patient had a mechanical fall in April 2024 and sustained a right greater trochanteric fracture. Since that time, the patient has been mostly bed ridden. The patient's son reports that earlier this week he became mobile around the house. On the day of emergency dept arrival to [facility], the patient was left alone and when family came back, they found the patient on the floor. EMS was called and the patient was taken to the nearest emergency room. He has been transferred to this facility due to insurance reasons. Cardiology has been consulted at this time for a questionable mass in the right atrium that was found on an echocardiogram at [facility]. Initial twelve lead electrocardiogram done at this facility is indiscernible due to poor quality in artifact in every lead. Continuous cardiac monitoring reveals that the patient is in atrial fibrillation with controlled rate at time of assessment. The patient denies any cardiac symptoms at time of assessment. The patient's primary middle stitcher was Dr. Brambila in the [facility] cardiac clinic. Family History: FH: stomach cancer G8 MOTHER, Allergies: Coded Allergies: No Known Drug Allergy (Verified Allergy, Unknown, 02/17/21) Home Meds Active Scripts Hydrocodone-Acetaminophen (Hydrocodone Bitartrate/AC 5-325 mg) 1 Tab Tab, 1 TAB PO Q6HP PRN, #15 TAB Prov:JUSTO FERRARI PAC 05/13/24 Ibuprofen (Ibuprofen) 600 Mg Tab, 1 TAB PO Q6HP PRN, #20 TAB Prov:JUSTO FERRARI PAC 05/13/24 Albuterol Sulfate (VENTOLIN MDI) 90 Mcg Ih, 90 MCG IN Q6HPRN PRN for 30 Days, #30 INH Prov:SAILAJA MUÑOZ MD 03/30/23 Potassium Chloride (Potassium Chloride ER) 10 Meq Tab, 10 MEQ PO QAM for 7 Days, #7 TAB Prov:SAILAJA MUÑOZ MD 03/30/23 Furosemide (Lasix) 20 Mg Tb, 1 TAB PO QAM for 7 Days, #7 TAB 5 Refills Prov:SAILAJA MUÑOZ MD 03/30/23 Prednisone (Prednisone) 20 Mg Tab, 40 MG PO QAM for 5 Days, #5 MG Prov:SAILAJA MUÑOZ MD 03/30/23 Levofloxacin (Levaquin 750 mg) 750 Mg Tab, 1 TAB PO DAILY for 7 Days, #7 TAB Prov:SAILAJA MUÑOZ MD 03/30/23 Reported Medications Lisinopril (Lisinopril) 10 Mg Tab, 10 MG PO DAILY for 30 Days, MG 05/17/24 Famotidine (Famotidine) 20 Mg Tab, 40 MG PO HS for 30 Days, MG 05/17/24 Apixaban Base (ELIQUIS) 2.5 Mg Tab, 1 TAB PO BID 03/28/23 Amlodipine Besylate (NORVASC TABLET) 5 Mg Tb, 5 MG PO DAILY for BP, TAB 02/17/21 Tamsulosin Hcl (Tamsulosin Hcl) 0.4 Mg Cap, 0.4 MG PO QPM for PROSTATE for 30 Days, MG 02/17/21 Propranolol Hcl (Inderal La) 60 Mg Cap, 60 MG PO HS for A.FIB, CAP 02/17/21 Sacubitril-Valsartan (Entresto 24-26 mg) 1 Tab Tab, 1 TAB PO BID for BP, TAB 02/17/21 Hydrocodone-Acetaminophen ([place] 5/325MG) 1 Tab Tb, 1 TAB PO BID PRN for MODERATE PAIN (4-6 PAIN SCALE), #60 TAB 06/19/19 Omeprazole (Gnp Omeprazole) 20 Mg Tab, 1 TAB PO DAILY, #90 TAB 1 Refill 08/04/18 Nitroglycerin (Nitroglycerin Transdermal) 0.2 Mg/Hr Dis, 0.2 MG TD HS, DIS 08/04/18 Current Medications Current Medications Medications (Trade) Dose Ordered Sig/Amanda Route PRN Reason Start Time Stop Time Status Last Admin Nitroglycerin (Ntrostat Sublingual) 0.4 mg Q5MINP PRN SL FOR CHEST PAIN 08/11/24 01:15 Morphine Sulfate 2 mg Q30M PRN IV FOR CHEST PAIN 08/11/24 01:15 Heparin Sodium/ Dextrose 250 ml @ 11 mls/hr [id number] IV 08/11/24 01:15 08/11/24 03:21 DC Acetaminophen (Tylenol Tablet Or Capsule) 500 mg Q4HPRN PRN PO MILD PAIN (1-3 PAIN SCALE) 08/11/24 01:15 Acetaminophen/ Hydrocodone Bitart ([place] 5/325MG Tab) 1 tab Q4HPRN PRN PO MODERATE PAIN (4-6 PAIN SCALE) 08/11/24 01:15 Morphine Sulfate 1 mg Q4HPRN PRN IV SEVERE PAIN (7-10 PAIN SCALE) 08/11/24 01:15 Amlodipine Besylate (Norvasc Tablet) 5 mg DAILY PO 08/11/24 10:00 08/11/24 03:36 DC Famotidine (Pepcid Tablet) 40 mg HS PO 08/11/24 22:00 08/11/24 10:21 DC Sacubitril/ Valsartan (Entresto 24-26 Mg tab) 1 tab BID PO 08/11/24 10:00 08/11/24 03:36 DC Ergocalciferol (Vitamin D 50,000 Unit) 50,000 unit Q7D PO 08/11/24 06:15 08/11/24 06:54 Ceftriaxone Sodium 50 ml @ 100 mls/hr DAILY@09 IV 08/11/24 09:00 08/11/24 09:40 Azithromycin 250 ml @ 125 mls/hr DAILY IV 08/11/24 10:00 08/11/24 09:25 DC Pantoprazole Sodium (Protonix) 40 mg DAILY IV 08/11/24 10:00 Sodium Chloride 1,000 ml @ 75 mls/hr [id number] IV 08/11/24 10:45 08/11/24 13:47 Sodium Chloride (Saline Lock Ns) 10 ml Q8HR IV 08/11/24 14:00 08/11/24 14:00 Metoprolol Tartrate (Lopressor Tablet) 12.5 mg BID PO 08/11/24 22:00 Review of Systems Constitutional: No symptom reported Ears, Nose, & Throat: No symptom reported Eyes: No symptom reported Neurological: No symptoms reported Pulmonary/Respiratory: No symptoms reported Cardiovascular: No symptom reported Gastrointestinal: No symptom reported Genitourinary: No symptom reported Musculoskeletal: Generalized pain Skin: No symptom reported Psychiatric: No symptom reported Endocrine: No symptom reported Hematologic/Lymphatic: No symptom reported Vital Signs Vital Signs Date Time Temp Pulse Resp B/P (MAP) Pulse Ox O2 Delivery O2 Flow Rate FiO2 08/11/24 21:00 98.0 98 18 129/73 (91) 100 98.0 08/11/24 20:00 Nasal Cannula* 1 24 Physical Exam GENERAL: Alert and oriented x 3. No acute distress. Thin appearing. EYES: PERRL, EOMI. Anicteric. HENT: Moist mucous membranes. LUNGS: Clear to auscultation bilaterally. CARDIOVASCULAR: Irregular rate and rhythm. ABDOMEN: Soft, nontender and nondistended. EXTREMITIES: No edema. NEUROLOGIC: No focal neurological deficits. SKIN: Generalized ecchymosis to all extremities. Abrasion to right forehead. Labs/Diagnostic Data Labs Test 08/11/24 19:00 08/11/24 04:00 08/11/24 03:50 08/11/24 03:40 Range/Units Urine Color Yellow Yellow Urine Clarity Clear Clear Urine pH 5.5 5.0-9.0 Urine Specific [place] 1.030 1.001-1.035 Urine Protein Trace H Negative Urine Ketones 1+ H Negative Urine Blood Trace H Negative /uL Urine Nitrite Negative Negative Urine Bilirubin Negative Negative Urine Urobilinogen 4 H Negative mg/dL Urine Leukocyte Esterase 2+ Negative /uL Urine RBC 3 0 - 3 /hpf Urine Microscopic WBC 27 H 0-3 /HPF Urine Squamous Epithelial Cells Few <5 /hpf Urine Bacteria None seen None Seen /hpf Urine Hyaline Casts Few 0 - 2 /lpf Urine Mucus Few None Seen Urine Glucose Normal Normal mg/dL Urine Opiates Screen Neg NEGATIVE Urine Fentanyl Screen Pos NEGATIVE Urine Barbiturates Screen Neg NEGATIVE Urine Phencyclidine Screen Neg NEGATIVE Urine Amphetamines Screen Neg NEGATIVE Urine Benzodiazepines Screen Pos NEGATIVE Urine Cocaine Screen Neg NEGATIVE Urine Cannabinoids Screen Neg NEGATIVE Stool Occult Blood Sample #3 Negative Negative Ammonia < 10 L 11-32 umol/L Troponin I High Sensitivity 9 </=54 ng/L SARS-CoV-2 Antigen (Rapid) Negative NEGATIVE Test 08/11/24 02:15 Range/Units White Blood Count 6.0 4.4-10.8 10^3/uL Red Blood Count 2.40 L 4.5-5.90 10^6/uL Hemoglobin 7.6 L 13.5-17.5 g/dL Hematocrit 22.8 L 41.0-53.0 % Mean Corpuscular Volume 95.0 80.0-100.0 fL Mean Corpuscular Hemoglobin 31.6 28.0-32.0 pg Mean Corpuscular Hemoglobin Concent 33.3 32.0-36.0 g/dL Red Cell Distribution Width 19.3 H 11.8-14.3 % Platelet Count 70 L 140-450 10^3/uL Mean Platelet Volume 9.8 6.9-10.8 fL Neutrophils (%) (Auto) 71.1 37.0-80.0 % Lymphocytes (%) (Auto) 10.4 10.0-50.0 % Monocytes (%) (Auto) 17.9 H 0.0-12.0 % Eosinophils (%) (Auto) 0.3 0.0-7.0 % Basophils (%) (Auto) 0.3 0.0-2.0 % Neutrophils # (Auto) 4.3 1.6-8.6 10 ^3/uL Lymphocytes # (Auto) 0.6 0.4-5.4 10 ^3/uL Monocytes # (Auto) 1.1 0-1.3 10 ^3/uL Eosinophils # (Auto) 0 0-0.8 10 ^3/uL Basophils # (Auto) 0 0-0.2 10 ^3/uL Nucleated Red Blood Cells 0.1 % Reticulocyte Count (auto) 2.49 H 0.5-1.5 % Prothrombin Time 12.9 H 9.3-11.8 sec Prothrombin Time INR 1.24 H 0.9-1.15 Activated Partial Thromboplast Time 32.4 24.5-34.5 SEC Sodium Level 137 136-145 mmol/L Potassium Level 4.2 3.5-5.1 mmol/L Chloride Level 105 98-107 mmol/L Carbon Dioxide Level 26 20-31 mmol/L Anion Gap 6 5-15 Blood Urea Nitrogen 18 9-23 mg/dL Creatinine 0.69 L 0.700-1.30 mg/dL Glomerular Filtration Rate Calc 91 >90 mL/min BUN/Creatinine Ratio 26.1 H 10.0-20.0 Serum Glucose 98 74-106 mg/dL Hemoglobin A1c 4.9 <5.7 % A1C Calcium Level 9.1 8.7-10.4 mg/dL Magnesium Level 1.8 1.6-2.6 mg/dL Iron Level 27 L 65-175 ug/dL Total Iron Binding Capacity 155 L 250-425 ug/dL Percent Iron Saturation 17.4 L 20-55 % Ferritin 386.6 H 22-322 ng/mL Total Bilirubin 1.3 H 0.2-1.0 mg/dL Direct Bilirubin 0.7 H <0.3 mg/dL Aspartate Amino Transferase (AST) 28 13-40 U/L Alanine Aminotransferase (ALT) 14 7-40 U/L Alkaline Phosphatase 47 46-116 U/L Lactate Dehydrogenase 249 H 120-246 U/L B-Type Natriuretic Peptide 477.93 0-100 pg/mL Total Protein 5.7 5.7-8.2 g/dL Albumin 3.3 3.2-4.8 g/dL Vitamin B12 Level 243 211-911 pg/mL Vitamin D 25-Hydroxy 31.1 30.0-100 ng/mL Thyroid Stimulating Hormone (TSH) 1.53 0.55-4.78 uIU/mL Assessment Rule out right atrial mass versus clot. Persistent atrial fibrillation, Stage 3B, on low-dose Eliquis/propranolol. Chronic HFpEF, NYHA class III. Hypertension. Pulmonary hypertension. Severe anemia s/p PRBC (at [facility] Thrombocytopenia. Right greater trochanteric fracture on 04/2024. Dementia. Plan/Recommendation I agree with your ongoing assessment and care of plan. Patient has been seen by Jessie Lennon NP on my behalf, her and I discussed the plan with the patient. Transthoracic echocardiogram to evaluate cardiac structure; r/o RA mass/clot. [id number] VASc score: 4 points, HAS-BLED: 2 points. Hold NOAC given severe anemia requiring PRBC infusion. Patient is s/p IVC filter. Initiate low-dose beta-bertha for rate control, up titrate as tolerated. Avoid antiarrhythmic agent given atrial fibrillation is persistent and/or possible RA clot. Monitor and replete electrolytes as needed, keep potassium greater than four and magnesium greater than two. Close Cardiac surveillance. Additional plan as per the hospital course. Plan discussed with: Patient, Son NYHA Physical activity limitations: NA Date of Service: Aug 11, 2024 Billing Provider: MIMI LANE MD Cardiology Common Codes: [id number] INP/OBS CARE (High) Cardiology Consultation Codes: [id number] CONSULT <45MIN MIMI LANE MD Aug 11, 2024 22:19
[2024-08-12] VITALS (11 sets, daily range): BP systolic 108–146; BP diastolic 66–75; PULSE 82–106; RESP 14–18; TEMP 97.3–98.8; O2SAT 94–100
--- NOTE | 2024-08-12 01:37 | DVHSR ---
APPROVED REPORT EXAM: LIMITED Two-dimensional and M-mode echocardiogram with Doppler, color Doppler and contrast. Blood Pressure: 141/72 mmHg INDICATION evaluate cardiac function, assess for RA thrombus. OPTISON USED. RISK FACTORS Height: 6'1, Weight: 132 DIMENSIONS EF (%) 55.0 (55-70%)Rt. Atrium (1.9-4.0cm)Asc. Aorta cm Mitral Valve MitralMitral Stenosis E/A ratio0.02D MVAcm2 Tricuspid Valve TR Velocity3.47m/s [id number] Other Information Quality : Technically LimitedRhythm : Technically limited study due to OPTISON. pt altered Conclusion LV EF IS 60%AND IS NORMAL MODERATELY DILATED LA,RA AND RV GROSSLY NORMAL VALVES HYPOKINETIC ENLARGED RV SEVERE PULMONARY HYPERTENSION RVSP IS 56 MM OF HG AND IS VERY HIGH NO EFFUSION
[2024-08-12 07:21] LABS: Chloride 107 mmol/L (98-107); Potassium 3.5 mmol/L (3.5-5.1); Sodium 140 mmol/L (136-145)
[2024-08-12 07:22] LABS: Anion Gap 8 (5-15); Carbon Dioxide 25 mmol/L (20-31)
[2024-08-12 07:28] LABS: BUN/Creatinine Ratio 34.5 (10.0-20.0); Blood Urea Nitrogen 20 mg/dL (9-23); Glucose 81 mg/dL (74-106)
[2024-08-12 07:33] LABS: Calcium 8.5 mg/dL (8.7-10.4)
[2024-08-12 07:43] LABS: Hemoglobin 7.4 g/dL (13.5-17.5); Platelet Count (auto) 59 10^3/uL (140-450)
[2024-08-12 07:46] LABS: Hematocrit 21.8 % (41.0-53.0); Mean Corpuscular Hemoglobin 32.2 pg (28.0-32.0); Mean Corpuscular Hgb Conc. 33.8 g/dL (32.0-36.0); Mean Corpuscular Volume 95.3 fL (80.0-100.0); Red Blood Cells 2.29 10^6/uL (4.5-5.90); Red Cell Distribution Width 19.1 % (11.8-14.3)
[2024-08-12 07:53] LABS: Basophils % (manual) 0 (0.0-2.0); Blast Cells 0; Eosinophils % (manual) 0 (0-7); Metamyelocytes % 0; Myelocytes % 0; Promyelocytes % 0; Reactive Lymphocytes 0
[2024-08-12 08:14] LABS: Anisocytosis Slight; Band Neutrophils % (manual) 1; Lymphocytes % (manual) 10 (10.0-50.0); Monocytes % (manual) 19 (0-12); Platelet Estimate Decreased
--- NOTE | 2024-08-12 21:43 | DVHPN2 ---
Progress Note - Dictate Date Seen: Aug 12, 2024 Medical Necessity Reason Pt with a Central, PICC or Fol: No Subjective Patient was seen and evaluated in follow up. Patient is resting in bed. Patient is cardiac cleared for surgery. Echo shows an EF of 60%. HGB 7.4, HCT 21.8. Telemetry reviewed. vital signs Vital Sign Date Time Temp Pulse Resp B/P (MAP) Pulse Ox O2 Delivery O2 Flow Rate FiO2 08/12/24 21:03 103 108/66 08/12/24 18:27 98.0 18 98.0 08/12/24 16:44 99 08/12/24 07:30 Room Air* 0 21 Total Intake and Output 08/11/24 08/11/24 08/12/24 15:00 23:00 07:00 Intake Total 50 ml 200 ml Output Total 550 ml 275 ml Balance 50 ml -550 ml -75 ml medications Current Medications Medications Dose Ordered Sig/Amanda Route Start Time Stop Time Status Last Admin Dose Admin Nitroglycerin 0.4 mg Q5MINP PRN SL 08/11/24 01:15 Morphine Sulfate 2 mg Q30M PRN IV 08/11/24 01:15 Acetaminophen 500 mg Q4HPRN PRN PO 08/11/24 01:15 Acetaminophen/ Hydrocodone Bitart 1 tab Q4HPRN PRN PO 08/11/24 01:15 Morphine Sulfate 1 mg Q4HPRN PRN IV 08/11/24 01:15 Ergocalciferol 50,000 unit Q7D PO 08/11/24 06:15 08/11/24 06:54 50,000 UNIT Ceftriaxone Sodium 50 ml @ 100 mls/hr DAILY@09 IV 08/11/24 09:00 08/12/24 08:32 100 MLS/HR Pantoprazole Sodium 40 mg DAILY IV 08/11/24 10:00 08/12/24 08:33 40 MG Sodium Chloride 1,000 ml @ 75 mls/hr [id number] IV 08/11/24 10:45 08/12/24 01:29 75 MLS/HR Sodium Chloride 10 ml Q8HR IV 08/11/24 14:00 08/12/24 20:48 10 ML Metoprolol Tartrate 12.5 mg BID PO 08/11/24 22:00 08/12/24 21:03 12.5 MG objective GENERAL: Alert and oriented x 3. No acute distress. Thin appearing. EYES: PERRL, EOMI. Anicteric. HENT: Moist mucous membranes. LUNGS: Clear to auscultation bilaterally. CARDIOVASCULAR: Irregular rate and rhythm. ABDOMEN: Soft, nontender and nondistended. EXTREMITIES: No edema. NEUROLOGIC: No focal neurological deficits. SKIN: Generalized ecchymosis to all extremities. Abrasion to right forehead. laboratory and microbiology Laboratory Tests 08/12/24 05:52 Test 08/12/24 05:52 Range/Units Serum Glucose 81 74-106 mg/dL Problem List Rule out right atrial mass versus clot. Persistent atrial fibrillation, Stage 3B, on low-dose Eliquis/propranolol. Chronic HFpEF, NYHA class III. Hypertension. Pulmonary hypertension. Severe anemia s/p PRBC (at [facility]). Thrombocytopenia. Right greater trochanteric fracture on 04/2024. Dementia. Pulmonary HTN. Assessment/Plan Continued all current supportive medical care. Morphine and [place] for pain management. IV antibiotics as ordered. Metoprolol. Nitro SL. Additional plan as per the hospital course. Dietary Evaluation Review Comments: 1) liberalizing diet to mechanical soft diet 2) Ensure enlive 240ml BId 3) Continue current plan of care Expected Outcomes/Goals: To meet >75% estimated needs Fu 3-5 days Plan discussed with: Patient MIMI LANE MD Aug 12, 2024 21:43
[2024-08-13] VITALS (11 sets, daily range): BP systolic 118–145; BP diastolic 52–93; PULSE 86–97; RESP 18; TEMP 97–99.1; O2SAT 94–100
[2024-08-13 05:51] LABS: Alanine Aminotransferase 11 U/L (7-40); Albumin 2.9 g/dL (3.2-4.8); Alkaline Phosphatase 49 U/L (46-116); Anion Gap 8 (5-15); Aspartate Aminotransferase 21 U/L (13-40); BUN/Creatinine Ratio 35.3 (10.0-20.0); Blood Urea Nitrogen 18 mg/dL (9-23); Calcium 8.3 mg/dL (8.7-10.4); Carbon Dioxide 23 mmol/L (20-31); Chloride 106 mmol/L (98-107); Glucose 106 mg/dL (74-106); Potassium 3.7 mmol/L (3.5-5.1); Sodium 137 mmol/L (136-145); Total Protein 5.1 g/dL (5.7-8.2)
[2024-08-13 05:53] LABS: Bilirubin, Total 1.8 mg/dL (0.2-1.0)
[2024-08-13 05:54] LABS: Basophils # (auto) 0 10 ^3/uL (0-0.2); Basophils % (auto) 0.1 % (0.0-2.0); Eosinophils # (auto) 0 10 ^3/uL (0-0.8); Hemoglobin 9.3 g/dL (13.5-17.5); Mean Corpuscular Hemoglobin 31.5 pg (28.0-32.0); Monocytes # (auto) 0.8 10 ^3/uL (0-1.3); Red Blood Cells 2.94 10^6/uL (4.5-5.90); White Blood Cell 7.3 10^3/uL (4.4-10.8)
[2024-08-13 06:00] LABS: Eosinophils % (auto) 0.3 % (0.0-7.0); Hematocrit 27.1 % (41.0-53.0); Lymphocytes # (auto) 0.5 10 ^3/uL (0.4-5.4); Lymphocytes % (auto) 6.5 % (10.0-50.0); Mean Corpuscular Hgb Conc. 34.2 g/dL (32.0-36.0); Mean Corpuscular Volume 91.9 fL (80.0-100.0); Monocytes % (auto) 11.5 % (0.0-12.0); Neutrophils % (auto) 81.6 % (37.0-80.0); Platelet Count (auto) 62 10^3/uL (140-450); Red Cell Distribution Width 19.5 % (11.8-14.3)
[2024-08-13 06:01] LABS: INR 1.19 (0.9-1.15); Prothrombin Time 12.4 sec (9.3-11.8)
[2024-08-13 06:18] LABS: Rapid Influenza A Negative (Negative); Rapid Influenza B Negative (Negative)
[2024-08-13] MEDS ORDERED: PROPOFOL 10 MG/ML 20 ML IV ONE ×2 (10:22→11:59)
[2024-08-13] MEDS ORDERED: DexAMETHasone SOD PHOS 10MG/1ML VIAL INJ ONE (10:22)
[2024-08-13] MEDS ORDERED: GLYCOPYRROLATE 0.2 MG/ML 1ML VIAL ONE (10:22)
[2024-08-13] MEDS ORDERED: ONDANSETRON HCL 4 MG/2 ML VIAL ONE (10:22)
[2024-08-13] MEDS ORDERED: LIDOCAINE 1% INJ PF 5ML AMP ONE (10:22)
[2024-08-13] MEDS ORDERED: EPINEPHrine HCL 1 MG/1 ML AMP ONE (10:22)
[2024-08-13] MEDS ORDERED: METOPROLOL TARTRATE 1MG/1ML-5ML VIAL IV ONE (11:22)
[2024-08-13] MEDS ORDERED: ceFAZolin 1GM VL ONE (11:22)
[2024-08-13] MEDS ORDERED: PHENYLEPHRINE HCL 10 MG/ML VL ONE (11:23)
[2024-08-13] MEDS ORDERED: SODIUM CHLORIDE LOCK 10 ML ONE (11:23)
[2024-08-13] MEDS ORDERED: ESMOLOL HCL 10 ML IV ONE (11:49)
[2024-08-13] MEDS: BUPIVACAINE 0.25% INJ 50ML VIAL ONE (12:17)
--- NOTE | 2024-08-13 12:31 | POSTOP ---
Post-Operative Note Post-Operative Note Preop Diagnosis Right comminuted displaced intertrochanteric hip fracture Postop Diagnosis: as above Operation performed Closed reduction and insertion intramedullary nail right hip Anesthesia: Mac, Local Anesthesiologist: Gerson YAN Surgeon Malik Lal Implant AOS Trauma [id number] ES nail 95mm lag screw 40mm interlocking screw Complications & Mgmt None Additional Remarks Weight bearing as tolerated PT eval ASA 81 BID for DVT ppx Keep dressing clean and dry for 2 weeks, follow up in 2 weeks by calling [phone] Date 08/13/24 Time 12:29 MALIK LAL MD Aug 13, 2024 12:31
[2024-08-13] MEDS ORDERED: ONDANSETRON HCL 4 MG/2 ML VIAL IV PRN (12:45)
[2024-08-13] MEDS ORDERED: NALOXONE HCL 0.4 MG/ML VIAL IV PRN (12:45)
[2024-08-13] MEDS ORDERED: hydrALAZINE HCL 20 MG/ML VL IV PRN (12:45)
[2024-08-13] MEDS ORDERED: ePHEDrine SULFATE 50 MG/ML AMP IV PRN (12:45)
[2024-08-13] MEDS ORDERED: fentaNYL CITRATE 100 MCG/2 ML VL IV PRN (12:45)
[2024-08-13] MEDS ORDERED: HYDROmorphone HCL 2 MG/ML VL/or syr IV PRN (12:45)
[2024-08-13] MEDS ORDERED: FLUMAZENIL 0.1 MG/ML INJ 10ML MDV IV PRN (12:45)
[2024-08-13] MEDS: ASPirin 81 mg TAB PO SCH (13:10)
[2024-08-13] MEDS: ceFAZolin 1GM/50ML 50 ML IV SCH (13:10)
--- NOTE | 2024-08-13 15:42 | DVH ---
CLINICAL INFORMATION: 84 years old, Male; status post open reduction internal fixation of the right hip. TECHNIQUE: Single AP view of the pelvis and 2 views of the right femur were obtained. COMPARISON: CT dated 05/15/2024. FINDINGS: Postsurgical changes of open reduction internal fixation of the right hip with intramedulla ry olivia extending from the greater trochanter to the distal femoral diaphysis with associated femoral neck screw and proximal locking screw in place. Alignment is anatomic. Small lucency at the left inte rtrochanteric region from the fracture. Soft tissue swelling and gas within the soft tissues adjacent to the surgical site consistent with recent postoperative changes. Cutaneous cortney are seen along the lateral aspect of the right hip and lateral aspect of the proximal right thigh. Dense arterial c alcifications are seen. IMPRESSION: Postsurgical changes of open reduction internal fixation of the right femur as described above.
--- NOTE | 2024-08-13 16:24 | DVHPNRES ---
Progress Note Date Seen: Aug 13, 2024 Resident Creating Document: TRENA AN RESIDENT Has the PT tested + for MRSA If YES, has PT been informed?: No Medical Necessity Reason Pt with a Central, PICC or Fol: No Subjective Review of Systems This is a 84-year-old male with past medical history of persistent atrial fibrillation on anticoagulation, pulmonary hypertension, Parkinson's dementia, hypertension, previous history of prostate cancer, GERD, thrombocytopenia, right comminuted right greater trochanteric fracture 04/2024 was admitted at [facility] on 08/09 in nose being transferred to [facility]. Patient initially presented with a reported fall injury unclear mechanisms in his home by family on the ground for which EMS was fall in securely transferred to [facility] CT head was unremarkable at [facility]. Initial EKG showed AFib with RVR, ventricular rate 146. Patient was started on IV amiodarone and metoprolol 50 mg twice daily. BNP was in the did not 2300. WBC 4.8, platelets 90. patient was kept in ICU. CT cervical, thoracic, lumbar spine was performed which revealed no acute fractures or dislocation. Patient had 2 cm right eyebrow laceration which was repaired. Patient's hemoglobin was 6.7 for which he received [address] of G right showed acute comminuted right femur intertrochanteric fracture on those with has been present during the previous admission at [facility] in April 2024 and orthopedics recommended. Patient seen and examined at bedside. Patient was taken to the OR this morning for open reduction and internal fixation of the right hip which was performed successfully without complications. Patient is also status post inferior vena cava filter placed on 08/11/2024. We will start physical therapy. Talking with his son at bedside for 20 minutes regarding his condition. We explained that we will talk tomorrow regarding long-term management, either hospice or rehab. For now, we will continue current medical management command IV antibiotics and fluids. Patient is currently on 3 L of oxygen through nasal cannula which is currently his baseline. Son reported the patient is a little bit more confused than his baseline which could be due to the anesthesia after surgery. ROS Constitutional: Denies weight loss, fever and chills. HEENT: Denies changes in vision and hearing. Respiratory: Denies shortness of breath and cough Cardiovascular: Denies chest discomfort or palpitations GI: Denies abdominal pain, nausea, vomiting and diarrhea. : Denies dysuria and urinary frequency. Musculoskeletal: Denies myalgias and joint pain Skin: Denies rash and pruritus. Neurological: Denies dizziness, headache, vision or hearing problems Objective vital signs Vital Sign Date Time Temp Pulse Resp B/P (MAP) Pulse Ox O2 Delivery O2 Flow Rate FiO2 08/13/24 13:17 97.0 86 18 121/69 (86) 94 97.0 08/13/24 12:24 Mask 9.0 100 Total Intake and Output 08/12/24 08/12/24 08/13/24 15:00 23:00 07:00 Intake Total 50 ml 2950 ml 550 ml Output Total 250 ml 500 ml Balance 50 ml 2700 ml 50 ml medications Current Medications Medications Dose Ordered Sig/Amanda Route Start Time Stop Time Status Last Admin Dose Admin Nitroglycerin 0.4 mg Q5MINP PRN SL 08/11/24 01:15 Morphine Sulfate 2 mg Q30M PRN IV 08/11/24 01:15 Acetaminophen 500 mg Q4HPRN PRN PO 08/11/24 01:15 Acetaminophen/ Hydrocodone Bitart 1 tab Q4HPRN PRN PO 08/11/24 01:15 Morphine Sulfate 1 mg Q4HPRN PRN IV 08/11/24 01:15 Ergocalciferol 50,000 unit Q7D PO 08/11/24 06:15 08/11/24 06:54 50,000 UNIT Ceftriaxone Sodium 50 ml @ 100 mls/hr DAILY@09 IV 08/11/24 09:00 08/13/24 09:24 100 MLS/HR Pantoprazole Sodium 40 mg DAILY IV 08/11/24 10:00 08/13/24 09:24 40 MG Sodium Chloride 1,000 ml @ 75 mls/hr [id number] IV 08/11/24 10:45 08/13/24 01:30 75 MLS/HR Sodium Chloride 10 ml Q8HR IV 08/11/24 14:00 08/13/24 13:18 10 ML Metoprolol Tartrate 12.5 mg BID PO 08/11/24 22:00 08/12/24 21:03 12.5 MG Cefazolin Sodium 50 ml @ 100 mls/hr Q8HR IV 08/13/24 14:00 08/14/24 15:00 08/13/24 13:10 100 MLS/HR Aspirin 81 mg BID PO 08/13/24 12:32 Examination Physical Examination General: Patient alert and oriented in person, place and time. Patient following commands. HEENT: Normocephalic, atraumatic, moist mucous membranes Respiratory/pulmonary: Clear lungs bilaterally, no associated crackles or wheezes. Cardiovascular: Normal heart sounds S1 and S2 with no associated murmurs Abdomen: Abdomen nondistended, there is no pain to palpation in any of the abdominal quadrants, no palpable masses. Extremities: Status post open reduction and internal fixation of right hip. Wounds are covered with clean gauze which are dry and clean with no drainage. There is no peripheral edema present at the lower extremities. Peripheral Pulses: 3+ Radial (R). 3+ Radial (L). 3+ Dorsalis pedis (R). 3+ Dorsalis pedis(L) Skin: No rashes or pruritus, there is no sacral edema present at this time. Neurological: Intact cranial nerves with no focal neurologic deficits laboratory and microbiology Laboratory Tests 08/13/24 04:30 Test 08/13/24 04:30 Range/Units Serum Glucose 106 74-106 mg/dL Microbiology Date/Time Source Procedure Growth Status 08/11/24 11:02 Blood Blood Culture - Preliminary NO GROWTH AFTER 48 HOURS OF INCUBATION. Resulted Problem List/Assessment/Plan Problem List/Assessment/Plan Assessment/Plan Acute Metabolic encephalopathy Acute on chronic anemia Acute blood loss anemia status post 2 packed RBC transfusion at [facility] Status post mechanical fall 08/09 right comminuted right greater trochanteric fracture 04/2024 Right atrial mass echogenic structure versus clot Pulmonary hypertension Thrombocytopenia Ruled out Right upper lobe Gram-negative pneumonia Persistent AFib, rate controlled History of Parkinson's dementia History of prostate cancer Secondary hypercoagulable state L2 compression fracture Hypertension Plan: S/P open reduction internal fixation of the right hip performed today on 08/13/2024. Start physical therapy Continue IV ceftriaxone Cardiology consultation has been done for BREANNE. Questionable mass in right atrium. Echocardiogram 08/10 at [facility] showed dilated RA, dilated RV, echogenic structure in right atrium seen in subcostal view. IVC filter inserted on 08/11/2024 Hold anticoagulation given severe anemia, PRBC of 2 units given at [facility], thrombocytopenia at 70. AFib is rate controlled, holding amiodarone given the right atrium clot versus mass Stool occult negative Follow up with Orthopedic surgery for greater trochanteric right-sided fracture and L2 compression fracture CT head : No acute intracranial abnormality CT abdomen pelvis at [facility] showed acute comminuted right femur intertrochanteric fracture. No dislocation. Patchy opacities right upper lobe may represent pulmonary contusion versus infectious etiology. Patchy opacity in right lower lobe lung base may represent atelectasis or pneumonia. Nodular opacity in right upper lobe measuring 1.2 cm can not exclude pulmonary nodule. Bladder diverticulum. Hepatic congestion versus artifact. CT cervical spine unremarkable CT lumbar spine showed L2 compression fractures of the superior and inferior endplates appears chronic Chest x-ray [facility] showed multiple lobe patchy opacities Diet NPO given patient is altered. Famotidine 40 mg daily We will discuss regarding hospice or rehab tomorrow. Goals of care discussed with the son at bedside for >25min, DNI/DNR. Plan discussed with Dr. Cruz Plan discussed with: Patient My Orders My Orders Orders - TRENA AN Procedure Category Date Status Time Complete Blood Count LAB 08/14/24 Verified 04:00 Basic Metabolic Panel LAB 08/14/24 Verified 04:00 Dietary Evaluation Review Comments: 1) liberalizing diet to mechanical soft diet 2) Ensure enlive 240ml BId 3) Continue current plan of care Expected Outcomes/Goals: To meet >75% estimated needs Fu 3-5 days Date of Service: Aug 13, 2024 Billing Provider: LESTER CRUZ MD Common Visit Codes: [id number] INP/OBS CARE(HIGH) TRENA AN RESIDENT Aug 13, 2024 16:24 LESTER CRUZ MD Aug 14, 2024 11:29
--- NOTE | 2024-08-13 21:58 | DVH ---
CLINICAL INDICATION: Right hip 1 view TECHNIQUE: 1 radiographic views of the intraoperative images of the right hip were obtained. 12 imag es received. Comparison: None FINDINGS/IMPRESSION: 12 intraoperative images of an open reduction internal fixation of a right hip fracture Total fluoro time 146.1 seconds Cumulative dose: 11.25 mGy
--- NOTE | 2024-08-13 22:00 | DVH ---
C-ARM FLUOROSCOPY: PROCEDURE: ORIF right hip TECHNIQUE: 12 IMAGES OF AN OPEN REDUCTION INTERNAL FIXATION OF A RIGHT HIP FRACTURE FLUOROSCOPY TIME: 146.1 sec DAP: 11.25 mgy FINDINGS: Spot intraoperative C arm radiographs demonstrating 12 images. IMPRESSION: 1. Please refer to surgical report for detailed findings.
--- NOTE | 2024-08-13 23:23 | DVHPN2 ---
Progress Note - Dictate Date Seen: Aug 13, 2024 Medical Necessity Reason Pt with a Central, PICC or Fol: No Subjective Patient was seen and evaluated in follow up. Patient underwent closed reduction and insertion intramedullary nail right hip. HGB 9.3, HCT 27.1, PT 12.4, INR 1.19, CA 8.3. Influenza A/B returned negative. Telemetry reviewed. vital signs Vital Sign Date Time Temp Pulse Resp B/P (MAP) Pulse Ox O2 Delivery O2 Flow Rate FiO2 08/13/24 13:17 97.0 86 18 121/69 (86) 94 97.0 08/13/24 12:24 Mask 9.0 100 Total Intake and Output 08/12/24 08/12/24 08/13/24 15:00 23:00 07:00 Intake Total 50 ml 2950 ml 550 ml Output Total 250 ml 500 ml Balance 50 ml 2700 ml 50 ml medications Current Medications Medications Dose Ordered Sig/Amanda Route Start Time Stop Time Status Last Admin Dose Admin Nitroglycerin 0.4 mg Q5MINP PRN SL 08/11/24 01:15 Morphine Sulfate 2 mg Q30M PRN IV 08/11/24 01:15 Acetaminophen 500 mg Q4HPRN PRN PO 08/11/24 01:15 Acetaminophen/ Hydrocodone Bitart 1 tab Q4HPRN PRN PO 08/11/24 01:15 Morphine Sulfate 1 mg Q4HPRN PRN IV 08/11/24 01:15 Ergocalciferol 50,000 unit Q7D PO 08/11/24 06:15 08/11/24 06:54 50,000 UNIT Ceftriaxone Sodium 50 ml @ 100 mls/hr DAILY@09 IV 08/11/24 09:00 08/13/24 09:24 100 MLS/HR Pantoprazole Sodium 40 mg DAILY IV 08/11/24 10:00 08/13/24 09:24 40 MG Sodium Chloride 1,000 ml @ 75 mls/hr [id number] IV 08/11/24 10:45 08/13/24 01:30 75 MLS/HR Sodium Chloride 10 ml Q8HR IV 08/11/24 14:00 08/13/24 13:18 10 ML Metoprolol Tartrate 12.5 mg BID PO 08/11/24 22:00 08/12/24 21:03 12.5 MG Cefazolin Sodium 50 ml @ 100 mls/hr Q8HR IV 08/13/24 14:00 08/14/24 15:00 08/13/24 13:10 100 MLS/HR Aspirin 81 mg BID PO 08/13/24 12:32 objective GENERAL: Alert and oriented x 3. No acute distress. Thin appearing. EYES: PERRL, EOMI. Anicteric. HENT: Moist mucous membranes. LUNGS: Clear to auscultation bilaterally. CARDIOVASCULAR: Irregular rate and rhythm. ABDOMEN: Soft, nontender and nondistended. EXTREMITIES: No edema. NEUROLOGIC: No focal neurological deficits. SKIN: Generalized ecchymosis to all extremities. Abrasion to right forehead. laboratory and microbiology Laboratory Tests 08/13/24 04:30 Test 08/13/24 04:30 Range/Units Serum Glucose 106 74-106 mg/dL Problem List Rule out right atrial mass versus clot. Persistent atrial fibrillation, Stage 3B, on low-dose Eliquis/propranolol. Chronic HFpEF, NYHA class III. Hypertension. Pulmonary hypertension. Severe anemia s/p PRBC (at [facility] Thrombocytopenia. Right greater trochanteric fracture on 04/2024. Dementia. Pulmonary HTN. Assessment/Plan Continued all current supportive medical care. Morphine and [place] for pain management. IV antibiotics as ordered. Metoprolol. Nitro SL. Additional plan as per the hospital course. Dietary Evaluation Review Comments: 1) liberalizing diet to mechanical soft diet 2) Ensure enlive 240ml BId 3) Continue current plan of care Expected Outcomes/Goals: To meet >75% estimated needs Fu 3-5 days Plan discussed with: Patient MIMI LANE MD Aug 13, 2024 14:47
[2024-08-14] VITALS (8 sets, daily range): BP systolic 119–150; BP diastolic 53–95; PULSE 73–100; RESP 17–20; TEMP 97.1–97.9; O2SAT 91–95
[2024-08-14 06:27] LABS: Basophils # (auto) 0 10 ^3/uL (0-0.2); Eosinophils # (auto) 0 10 ^3/uL (0-0.8); Hematocrit 25.9 % (41.0-53.0); Hemoglobin 8.9 g/dL (13.5-17.5); Lymphocytes # (auto) 0.4 10 ^3/uL (0.4-5.4); Lymphocytes % (auto) 4.8 % (10.0-50.0); Mean Corpuscular Hemoglobin 31.9 pg (28.0-32.0); Mean Corpuscular Hgb Conc. 34.5 g/dL (32.0-36.0); Mean Corpuscular Volume 92.5 fL (80.0-100.0); Monocytes # (auto) 0.6 10 ^3/uL (0-1.3); Monocytes % (auto) 7.6 % (0.0-12.0); Neutrophils # (auto) 6.5 10 ^3/uL (1.6-8.6); Neutrophils % (auto) 87.6 % (37.0-80.0); Nucleated Red Blood Cells % 0.1 %; Platelet Count (auto) 80 10^3/uL (140-450); Red Cell Distribution Width 19.4 % (11.8-14.3); White Blood Cell 7.4 10^3/uL (4.4-10.8)
[2024-08-14 06:44] LABS: Chloride 105 mmol/L (98-107); Potassium 4.6 mmol/L (3.5-5.1); Sodium 136 mmol/L (136-145)
[2024-08-14 06:45] LABS: Anion Gap 9 (5-15); Calcium 8.7 mg/dL (8.7-10.4); Carbon Dioxide 22 mmol/L (20-31)
[2024-08-14 06:50] LABS: BUN/Creatinine Ratio 30.5 (10.0-20.0); Blood Urea Nitrogen 18 mg/dL (9-23); Glucose 123 mg/dL (74-106)
--- NOTE | 2024-08-14 15:30 | DVHPNRES ---
Progress Note Date Seen: Aug 14, 2024 Resident Creating Document: BENJI PALUMBO RESIDENT Has the PT tested + for MRSA If YES, has PT been informed?: No Medical Necessity Reason Pt with a Central, PICC or Fol: No Subjective Review of Systems This is a 84-year-old male with past medical history of persistent atrial fibrillation on anticoagulation, pulmonary hypertension, Parkinson's dementia, hypertension, previous history of prostate cancer, GERD, thrombocytopenia, right comminuted right greater trochanteric fracture 04/2024 was admitted at [facility] on 08/09 in nose being transferred to [facility]. Patient initially presented with a reported fall injury unclear mechanisms in his home by family on the ground for which EMS was fall in securely transferred to [place] CT head was unremarkable at [place]. Initial EKG showed AFib with RVR, ventricular rate 146. Patient was started on IV amiodarone and metoprolol 50 mg twice daily. BNP was in the did not 2300. WBC 4.8, platelets 90. patient was kept in ICU. CT cervical, thoracic, lumbar spine was performed which revealed no acute fractures or dislocation. Patient had 2 cm right eyebrow laceration which was repaired. Patient's hemoglobin was 6.7 for which he received [address] of G right showed acute comminuted right femur intertrochanteric fracture on those with has been present during the previous admission at [facility] in April 2024 and orthopedics recommended. Patient seen and examined at bedside. S/P open reduction and internal fixation of the right hip which was performed successfully without complications. Patient is also status post inferior vena cava filter placed on 08/11/2024. plant physical therapy. Talked with son via phone wesley son are getting with discharge planning with sending patient on home hospice. Son prefers high-dose at hospice. Patient continue mild confusion, stable at 3 L oxygen via nasal cannula. Continue with current management. Presence of sitter at bedside. ROS Constitutional: Denies weight loss, fever and chills. HEENT: Denies changes in vision and hearing. Respiratory: Denies shortness of breath and cough Cardiovascular: Denies chest discomfort or palpitations GI: Denies abdominal pain, nausea, vomiting and diarrhea. : Denies dysuria and urinary frequency. Musculoskeletal: Denies myalgias and joint pain Skin: Denies rash and pruritus. Neurological: Denies dizziness, headache, vision or hearing problems Objective vital signs Vital Sign Date Time Temp Pulse Resp B/P (MAP) Pulse Ox O2 Delivery O2 Flow Rate FiO2 08/14/24 10:39 66 119/53 08/14/24 09:00 97.9 20 91 97.9 08/14/24 08:10 Nasal Cannula* 2 28 Total Intake and Output 08/13/24 08/13/24 08/14/24 15:00 23:00 07:00 Intake Total 100 ml 1760 ml 450 ml Output Total 400 ml 200 ml Balance 100 ml 1360 ml 250 ml medications Current Medications Medications Dose Ordered Sig/Amanda Route Start Time Stop Time Status Last Admin Dose Admin Nitroglycerin 0.4 mg Q5MINP PRN SL 08/11/24 01:15 Morphine Sulfate 2 mg Q30M PRN IV 08/11/24 01:15 Acetaminophen 500 mg Q4HPRN PRN PO 08/11/24 01:15 Acetaminophen/ Hydrocodone Bitart 1 tab Q4HPRN PRN PO 08/11/24 01:15 Morphine Sulfate 1 mg Q4HPRN PRN IV 08/11/24 01:15 Ergocalciferol 50,000 unit Q7D PO 08/11/24 06:15 08/11/24 06:54 50,000 UNIT Ceftriaxone Sodium 50 ml @ 100 mls/hr DAILY@09 IV 08/11/24 09:00 08/14/24 09:38 100 MLS/HR Pantoprazole Sodium 40 mg DAILY IV 08/11/24 10:00 08/13/24 09:24 40 MG Sodium Chloride 1,000 ml @ 75 mls/hr [id number] IV 08/11/24 10:45 08/13/24 22:05 75 MLS/HR Sodium Chloride 10 ml Q8HR IV 08/11/24 14:00 08/14/24 15:06 10 ML Metoprolol Tartrate 12.5 mg BID PO 08/11/24 22:00 08/14/24 09:39 12.5 MG Aspirin 81 mg BID PO 08/13/24 12:32 08/13/24 21:49 81 MG Examination General: Patient alert and oriented in person, place and time. Patient following commands. HEENT: Normocephalic, atraumatic, moist mucous membranes Respiratory/pulmonary: Clear lungs bilaterally, no associated crackles or wheezes. Cardiovascular: Normal heart sounds S1 and S2 with no associated murmurs Abdomen: Abdomen nondistended, there is no pain to palpation in any of the abdominal quadrants, no palpable masses. Extremities: Status post open reduction and internal fixation of right hip. Wounds are covered with clean gauze which are dry and clean with no drainage. There is no peripheral edema present at the lower extremities. Peripheral Pulses: 3+ Radial (R). 3+ Radial (L). 3+ Dorsalis pedis (R). 3+ Dorsalis pedis(L) Skin: No rashes or pruritus, there is no sacral edema present at this time. Neurological: Intact cranial nerves with no focal neurologic deficits laboratory and microbiology Laboratory Tests 08/14/24 05:40 Test 08/14/24 05:40 Range/Units Serum Glucose 123 H 74-106 mg/dL Microbiology Date/Time Source Procedure Growth Status 08/11/24 11:02 Blood Blood Culture - Preliminary NO GROWTH AFTER 72 HOURS OF INCUBATION. Resulted Problem List/Assessment/Plan Problem List/Assessment/Plan Acute Metabolic encephalopathy Acute on chronic anemia Acute blood loss anemia status post 2 packed RBC transfusion at [facility] Status post mechanical fall 08/09 right comminuted right greater trochanteric fracture 04/2024 Right atrial mass echogenic structure versus clot Pulmonary hypertension Thrombocytopenia Ruled out Right upper lobe Gram-negative pneumonia Persistent AFib, rate controlled History of Parkinson's dementia History of prostate cancer Secondary hypercoagulable state L2 compression fracture Hypertension Plan: S/P open reduction internal fixation of the right hip performed today on 08/13/2024. Social service consultation for hospice arrangement. DC planning tomorrow. Start physical therapy Continue IV ceftriaxone Cardiology consultation has been done for [facility]. Questionable mass in right atrium. Echocardiogram 08/10 at [place] showed dilated RA, dilated RV, echogenic structure in right atrium seen in subcostal view. IVC filter inserted on 08/11/2024 Hold anticoagulation given severe anemia, PRBC of 2 units given at [place], thrombocytopenia at 70. AFib is rate controlled, holding amiodarone given the right atrium clot versus mass Stool occult negative Follow up with Orthopedic surgery for greater trochanteric right-sided fracture and L2 compression fracture CT head : No acute intracranial abnormality CT abdomen pelvis at [facility] showed acute comminuted right femur intertrochanteric fracture. No dislocation. Patchy opacities right upper lobe may represent pulmonary contusion versus infectious etiology. Patchy opacity in right lower lobe lung base may represent atelectasis or pneumonia. Nodular opacity in right upper lobe measuring 1.2 cm can not exclude pulmonary nodule. Bladder diverticulum. Hepatic congestion versus artifact. CT cervical spine unremarkable CT lumbar spine showed L2 compression fractures of the superior and inferior endplates appears chronic Chest x-ray [place] showed multiple lobe patchy opacities Diet NPO given patient is altered. Famotidine 40 mg daily Had lengthy discussion via phone with son wesley, agrees with arranging hospice, social service has been consulted for hospice. Goals of care discussed with the son at bedside for >25min, DNI/DNR. Plan discussed with: Son, Other (RN) Dietary Evaluation Review Comments: 1) liberalizing diet to mechanical soft diet 2) Ensure enlive 240ml BId 3) Continue current plan of care Expected Outcomes/Goals: To meet >75% estimated needs Fu 3-5 days Date of Service: Aug 14, 2024 Billing Provider: SAILAJA MUÑOZ MD Common Visit Codes: [id number] INP/OBS CARE(MOD) BENJI PALUMBO RESIDENT Aug 14, 2024 15:30 SAILAJA MUÑOZ MD Aug 15, 2024 20:50
--- NOTE | 2024-08-14 23:25 | DVHPN2 ---
Progress Note - Dictate Date Seen: Aug 14, 2024 Has the PT tested + for MRSA If YES, has PT been informed?: No Medical Necessity Reason Pt with a Central, PICC or Fol: No Subjective Patient was seen and evaluated in follow up. Patient complains of right hip pain at surgical site. He is on 3 LPM NC. Son prefers high-dose at hospice. Patient has mild confusion. HGB 8.9, HCT 25.9. Telemetry reviewed. vital signs Vital Sign Date Time Temp Pulse Resp B/P (MAP) Pulse Ox O2 Delivery O2 Flow Rate FiO2 08/14/24 21:51 89 127/72 08/14/24 20:47 97.7 17 95 97.7 08/14/24 08:10 Nasal Cannula* 2 28 Total Intake and Output 08/13/24 08/13/24 08/14/24 15:00 23:00 07:00 Intake Total 100 ml 1760 ml 450 ml Output Total 400 ml 200 ml Balance 100 ml 1360 ml 250 ml medications Current Medications Medications Dose Ordered Sig/Amanda Route Start Time Stop Time Status Last Admin Dose Admin Nitroglycerin 0.4 mg Q5MINP PRN SL 08/11/24 01:15 Morphine Sulfate 2 mg Q30M PRN IV 08/11/24 01:15 Acetaminophen 500 mg Q4HPRN PRN PO 08/11/24 01:15 Acetaminophen/ Hydrocodone Bitart 1 tab Q4HPRN PRN PO 08/11/24 01:15 Morphine Sulfate 1 mg Q4HPRN PRN IV 08/11/24 01:15 Ergocalciferol 50,000 unit Q7D PO 08/11/24 06:15 08/11/24 06:54 50,000 UNIT Ceftriaxone Sodium 50 ml @ 100 mls/hr DAILY@09 IV 08/11/24 09:00 08/14/24 09:38 100 MLS/HR Pantoprazole Sodium 40 mg DAILY IV 08/11/24 10:00 08/13/24 09:24 40 MG Sodium Chloride 1,000 ml @ 75 mls/hr [id number] IV 08/11/24 10:45 08/14/24 20:30 75 MLS/HR Sodium Chloride 10 ml Q8HR IV 08/11/24 14:00 08/14/24 21:46 10 ML Metoprolol Tartrate 12.5 mg BID PO 08/11/24 22:00 08/14/24 21:51 12.5 MG Aspirin 81 mg BID PO 08/13/24 12:32 08/13/24 21:49 81 MG objective GENERAL: Alert and oriented x 3. No acute distress. Thin appearing. EYES: PERRL, EOMI. Anicteric. HENT: Moist mucous membranes. LUNGS: Clear to auscultation bilaterally. CARDIOVASCULAR: Irregular rate and rhythm. ABDOMEN: Soft, nontender and nondistended. EXTREMITIES: No edema. NEUROLOGIC: No focal neurological deficits. SKIN: Generalized ecchymosis to all extremities. Abrasion to right forehead. laboratory and microbiology Laboratory Tests 08/14/24 05:40 Test 08/14/24 05:40 Range/Units Serum Glucose 123 H 74-106 mg/dL Problem List Rule out right atrial mass versus clot. Persistent atrial fibrillation, Stage 3B, on low-dose Eliquis/propranolol. Chronic HFpEF, NYHA class III. Hypertension. Pulmonary hypertension. Severe anemia s/p PRBC (at [facility]). Thrombocytopenia. Right greater trochanteric fracture on 04/2024. Dementia. Pulmonary HTN. Assessment/Plan Continued all current supportive medical care. Morphine and [place] for pain management. IV antibiotics as ordered. Metoprolol. Nitro SL. Additional plan as per the hospital course. Dietary Evaluation Review Comments: 1) liberalizing diet to mechanical soft diet 2) Ensure enlive 240ml BId 3) Continue current plan of care Expected Outcomes/Goals: To meet >75% estimated needs Fu 3-5 days Plan discussed with: Patient, Son LANEMIMI MD Aug 14, 2024 23:25
[2024-08-15] VITALS (9 sets, daily range): BP systolic 118–143; BP diastolic 63–87; PULSE 73–98; RESP 16–18; TEMP 97.4–98.2; O2SAT 92–95
[2024-08-15 08:01] LABS: Basophils # (auto) 0 10 ^3/uL (0-0.2); Basophils % (auto) 0.1 % (0.0-2.0); Eosinophils # (auto) 0 10 ^3/uL (0-0.8); Eosinophils % (auto) 0.2 % (0.0-7.0); Lymphocytes # (auto) 0.6 10 ^3/uL (0.4-5.4); Monocytes # (auto) 0.6 10 ^3/uL (0-1.3); Neutrophils # (auto) 3.7 10 ^3/uL (1.6-8.6); Platelet Count (auto) 60 10^3/uL (140-450); White Blood Cell 4.9 10^3/uL (4.4-10.8)
[2024-08-15 08:02] LABS: Hematocrit 20.1 % (41.0-53.0); Lymphocytes % (auto) 12.2 % (10.0-50.0); Mean Corpuscular Hgb Conc. 33.8 g/dL (32.0-36.0); Mean Corpuscular Volume 94.8 fL (80.0-100.0); Monocytes % (auto) 12.3 % (0.0-12.0); Neutrophils % (auto) 75.2 % (37.0-80.0); Nucleated Red Blood Cells % 0.1 %; Red Blood Cells 2.12 10^6/uL (4.5-5.90); Red Cell Distribution Width 19.3 % (11.8-14.3)
[2024-08-15 08:05] LABS: Anion Gap 7 (5-15); Carbon Dioxide 24 mmol/L (20-31); Chloride 107 mmol/L (98-107); Potassium 3.9 mmol/L (3.5-5.1); Sodium 138 mmol/L (136-145)
[2024-08-15 08:11] LABS: BUN/Creatinine Ratio 39.6 (10.0-20.0); Blood Urea Nitrogen 21 mg/dL (9-23); Glucose 88 mg/dL (74-106)
[2024-08-15 08:14] LABS: Calcium 8.4 mg/dL (8.7-10.4)
[2024-08-15 08:17] LABS: Hemoglobin 6.8 g/dL (13.5-17.5)
--- NOTE | 2024-08-15 13:32 | DVHDSRES ---
Discharge Summary Date of Admission Resident Creating Document: BENJI PALUMBO RESIDENT Aug 10, 2024 at 23:43 Date of Discharge: Aug 15, 2024 Admitting Diagnosis metabolic encephalograph Labs/Diagnostic Data: Laboratory Results Test 08/15/24 07:07 08/13/24 05:15 08/13/24 04:30 08/12/24 05:52 White Blood Count 4.9 10^3/uL (4.4-10.8) Red Blood Count 2.12 10^6/uL (4.5-5.90) Hemoglobin 6.8 g/dL (13.5-17.5) Hematocrit 20.1 % (41.0-53.0) Mean Corpuscular Volume 94.8 fL (80.0-100.0) Mean Corpuscular Hemoglobin 32.0 pg (28.0-32.0) Mean Corpuscular Hemoglobin Concent 33.8 g/dL (32.0-36.0) Red Cell Distribution Width 19.3 % (11.8-14.3) Platelet Count 60 10^3/uL (140-450) Mean Platelet Volume 10.5 fL (6.9-10.8) Neutrophils (%) (Auto) 75.2 % (37.0-80.0) Lymphocytes (%) (Auto) 12.2 % (10.0-50.0) Monocytes (%) (Auto) 12.3 % (0.0-12.0) Eosinophils (%) (Auto) 0.2 % (0.0-7.0) Basophils (%) (Auto) 0.1 % (0.0-2.0) Neutrophils # (Auto) 3.7 10 ^3/uL (1.6-8.6) Lymphocytes # (Auto) 0.6 10 ^3/uL (0.4-5.4) Monocytes # (Auto) 0.6 10 ^3/uL (0-1.3) Eosinophils # (Auto) 0 10 ^3/uL (0-0.8) Basophils # (Auto) 0 10 ^3/uL (0-0.2) Nucleated Red Blood Cells 0.1 % Sodium Level 138 mmol/L (136-145) Potassium Level 3.9 mmol/L (3.5-5.1) Chloride Level 107 mmol/L (98-107) Carbon Dioxide Level 24 mmol/L (20-31) Anion Gap 7 (5-15) Blood Urea Nitrogen 21 mg/dL (9-23) Creatinine 0.53 mg/dL (0.700-1.30) Glomerular Filtration Rate Calc 99 mL/min (>90) BUN/Creatinine Ratio 39.6 (10.0-20.0) Serum Glucose 88 mg/dL (74-106) Calcium Level 8.4 mg/dL (8.7-10.4) Influenza Type A Antigen Negative (Negative) Influenza Type B Antigen Negative (Negative) Prothrombin Time 12.4 sec (9.3-11.8) Prothrombin Time INR 1.19 (0.9-1.15) Activated Partial Thromboplast Time 33.0 SEC (24.5-34.5) Total Bilirubin 1.8 mg/dL (0.2-1.0) Aspartate Amino Transferase (AST) 21 U/L (13-40) Alanine Aminotransferase (ALT) 11 U/L (7-40) Alkaline Phosphatase 49 U/L (46-116) Total Protein 5.1 g/dL (5.7-8.2) Albumin 2.9 g/dL (3.2-4.8) Differential Total Cells Counted 100.0 (100) Neutrophils % (Manual) 70 (37.0-80.0) Band Neutrophils % (Manual) 1 Lymphocytes % (Manual) 10 (10.0-50.0) Monocytes % (Manual) 19 (0-12) Eosinophils % (Manual) 0 (0-7) Basophils % (Manual) 0 (0.0-2.0) Metamyelocytes % (manual) 0 Myelocytes % (Manual) 0 Promyelocytes % (Manual) 0 Blast Cells % (Manual) 0 Reactive Lymphocytes 0 Platelet Estimate Decreased Anisocytosis (manual) Slight Test 08/11/24 19:00 08/11/24 04:00 08/11/24 03:50 08/11/24 03:40 Urine Color Yellow (Yellow) Urine Clarity Clear (Clear) Urine pH 5.5 (5.0-9.0) Urine Specific [place] 1.030 (1.001-1.035) Urine Protein Trace (Negative) Urine Ketones 1+ (Negative) Urine Blood Trace /uL (Negative) Urine Nitrite Negative (Negative) Urine Bilirubin Negative (Negative) Urine Urobilinogen 4 mg/dL (Negative) Urine Leukocyte Esterase 2+ /uL (Negative) Urine RBC 3 /hpf (0 - 3) Urine Microscopic WBC 27 /HPF (0-3) Urine Squamous Epithelial Cells Few /hpf (<5) Urine Bacteria None seen /hpf (None Seen) Urine Hyaline Casts Few /lpf (0 - 2) Urine Mucus Few (None Seen) Urine Glucose Normal mg/dL (Normal) Urine Opiates Screen Neg (NEGATIVE) Urine Fentanyl Screen Pos (NEGATIVE) Urine Barbiturates Screen Neg (NEGATIVE) Urine Phencyclidine Screen Neg (NEGATIVE) Urine Amphetamines Screen Neg (NEGATIVE) Urine Benzodiazepines Screen Pos (NEGATIVE) Urine Cocaine Screen Neg (NEGATIVE) Urine Cannabinoids Screen Neg (NEGATIVE) Stool Occult Blood Sample #3 Negative (Negative) Ammonia < 10 umol/L (11-32) Troponin I High Sensitivity 9 ng/L (</=54) SARS-CoV-2 Antigen (Rapid) Negative (NEGATIVE) Test 08/11/24 02:15 Reticulocyte Count (auto) 2.49 % (0.5-1.5) Hemoglobin A1c 4.9 % A1C (<5.7) Magnesium Level 1.8 mg/dL (1.6-2.6) Iron Level 27 ug/dL (65-175) Total Iron Binding Capacity 155 ug/dL (250-425) Percent Iron Saturation 17.4 % (20-55) Ferritin 386.6 ng/mL (22-322) Direct Bilirubin 0.7 mg/dL (<0.3) Lactate Dehydrogenase 249 U/L (120-246) B-Type Natriuretic Peptide 477.93 pg/mL (0-100) Vitamin B12 Level 243 pg/mL (211-911) Vitamin D 25-Hydroxy 31.1 ng/mL (30.0-100) Thyroid Stimulating Hormone (TSH) 1.53 uIU/mL (0.55-4.78) Other Laboratory Tests 08/15/24 07:07 Brief Hx & Hospital Course: H&P: This is a 84-year-old male with past medical history of persistent atrial fibrillation on anticoagulation, pulmonary hypertension, Parkinson's dementia, hypertension, previous history of prostate cancer, GERD, thrombocytopenia, right comminuted right greater trochanteric fracture 04/2024 was admitted at [facility] on 08/09 in nose being transferred to [facility]. Patient initially presented with a reported fall injury unclear mechanisms in his home by family on the ground for which EMS was fall in securely transferred to [place] CT head was unremarkable at [place]. Initial EKG showed AFib with RVR, ventricular rate 146. Patient was started on IV amiodarone and metoprolol 50 mg twice daily. BNP was in the did not 2300. WBC 4.8, platelets 90. patient was kept in ICU. CT cervical, thoracic, lumbar spine was performed which revealed no acute fractures or dislocation. Patient had 2 cm right eyebrow laceration which was repaired. Patient's hemoglobin was 6.7 for which he received [address] of G right showed acute comminuted right femur intertrochanteric fracture on those with has been present during the previous admission at [facility] in April 2024 and orthopedics recommended. Hospital course: Patient underwent S/P open reduction and internal fixation of the right hip which was performed successfully without complications. Patient is also status post inferior vena cava filter placed on 08/11/2024. Plan was to get done physical therapy, prolonged discussion was done with osiris olson regarding plan of care, given worsening dementia, Parkinson disease, alert but not oriented to time place and person, previous history of restrict cancer, osiris bailon agreed for hospice with DNR and DNI status. Social service has been consulted, patient will be discharged to home hospice once arrangement has been done. Condition at Discharge: Poor Final Diagnosis/Problems List Acute Metabolic encephalopathy Acute on chronic anemia Acute blood loss anemia status post 2 packed RBC transfusion at [facility] Status post mechanical fall 08/09 right comminuted right greater trochanteric fracture 04/2024 Right atrial mass echogenic structure versus clot Pulmonary hypertension Thrombocytopenia Ruled out Right upper lobe Gram-negative pneumonia Persistent AFib, rate controlled History of Parkinson's dementia History of prostate cancer Secondary hypercoagulable state L2 compression fracture Hypertension Discharge Disposition: Hospice - Home Discharge Instruct/Medications Diet: Regular Activity: No Restrictions, As Tolerated Follow Up/Referral: -follow up with Hospice MD Medications: -Continue home medications Discharge Statement: "Patient was advised to return to the ER or call 911 if any headaches, dizziness, shortness of breath, chest pain, abdominal pain, bleeding, fevers, or worsening of medical condition. Patient was counseled about treatment plan, medications, possible side effects, patientverbalized understanding. All questions were answered to the best of my ability. This discharge took greater then 30 minutes in planning, reviewing documentation, counseling the patient, and discussing with other team members." ASSESSMENT ASSESSMENT Assessment Acute Metabolic encephalopathy Acute on chronic anemia Acute blood loss anemia status post 2 packed RBC transfusion at [facility] Status post mechanical fall 08/09 right comminuted right greater trochanteric fracture 04/2024 Right atrial mass echogenic structure versus clot Pulmonary hypertension Thrombocytopenia Ruled out Right upper lobe Gram-negative pneumonia Persistent AFib, rate controlled History of Parkinson's dementia History of prostate cancer Secondary hypercoagulable state L2 compression fracture Hypertension Date of Service: Aug 15, 2024 Billing Provider: SAILAJA MUÑOZ MD Common Visit Codes: 80535-RSY/[id number] DISCH DAY >30min BENJI PALUMBO RESIDENT Aug 15, 2024 13:32 SAILAJA MUÑOZ MD Aug 15, 2024 21:38
--- NOTE | 2024-08-15 21:20 | DVHPN2 ---
Progress Note - Dictate Date Seen: Aug 15, 2024 Has the PT tested + for MRSA If YES, has PT been informed?: No Medical Necessity Reason Pt with a Central, PICC or Fol: No Subjective Patient was seen and evaluated in follow up. Patient has no new complaints at this time. Patient denies any cardiac symptoms. Patient is cardiac stable for discharge. Telemetry reviewed. vital signs Vital Sign Date Time Temp Pulse Resp B/P (MAP) Pulse Ox O2 Delivery O2 Flow Rate FiO2 08/15/24 14:02 97.8 86 16 138/70 97.8 08/15/24 13:00 94 08/15/24 08:05 Nasal Cannula* 2 28 Total Intake and Output 08/14/24 08/14/24 08/15/24 15:00 23:00 07:00 Intake Total 800 ml 1500 ml 250 ml Output Total 350 ml 700 ml Balance 800 ml 1150 ml -450 ml objective GENERAL: Alert and oriented x 3. No acute distress. Thin appearing. EYES: PERRL, EOMI. Anicteric. HENT: Moist mucous membranes. LUNGS: Clear to auscultation bilaterally. CARDIOVASCULAR: Irregular rate and rhythm. ABDOMEN: Soft, nontender and nondistended. EXTREMITIES: No edema. NEUROLOGIC: No focal neurological deficits. SKIN: Generalized ecchymosis to all extremities. Abrasion to right forehead. laboratory and microbiology Laboratory Tests 08/15/24 07:07 Test 08/15/24 07:07 Range/Units Serum Glucose 88 74-106 mg/dL Problem List Rule out right atrial mass versus clot. Persistent atrial fibrillation, Stage 3B, on low-dose Eliquis/propranolol. Chronic HFpEF, NYHA class III. Hypertension. Pulmonary hypertension. Severe anemia s/p PRBC (at [facility]). Thrombocytopenia. Right greater trochanteric fracture on 04/2024. Dementia. Pulmonary HTN. Assessment/Plan Continued all current supportive medical care. Morphine and [place] for pain management. IV antibiotics as ordered. Metoprolol. Nitro SL. Additional plan as per the hospital course. Dietary Evaluation Review Comments: 1) liberalizing diet to mechanical soft diet 2) Ensure enlive 240ml BId 3) Continue current plan of care Expected Outcomes/Goals: To meet >75% estimated needs Fu 3-5 days Plan discussed with: Patient MIMI LANE MD Aug 15, 2024 21:20
== END 2024-08-15 14:15 | disposition hospice, home (50) | DRG 480 ==
LOC: TELE-WESTW 23:43
PROVIDERS: ADMIT Internal Medicine; ATTEND Internal Medicine
PROC: 0QS636Z Reposition Right Upper Femur with Intramedullary Internal Fixation Device, Percutaneous Approach (ICD-10-PCS; 2024-08-10)
PROC: 06H03DZ Insertion of Intraluminal Device into Inferior Vena Cava, Percutaneous Approach (ICD-10-PCS; 2024-08-11)
PROC: 30233N1 Transfusion of Nonautologous Red Blood Cells into Peripheral Vein, Percutaneous Approach (ICD-10-PCS; principal; 2024-08-12)
DX: S72.111A Displaced fracture of greater trochanter of right femur, initial encounter for closed fracture (principal); G93.41 Metabolic encephalopathy; I48.19 Other persistent atrial fibrillation; I50.32 Chronic diastolic (congestive) heart failure; D62 Acute posthemorrhagic anemia; D68.59 Other primary thrombophilia; M48.56XA Collapsed vertebra, not elsewhere classified, lumbar region, initial encounter for fracture; I11.0 Hypertensive heart disease with heart failure; I27.20 Pulmonary hypertension, unspecified; D69.6 Thrombocytopenia, unspecified; G20.A1 Parkinson's disease without dyskinesia, without mention of fluctuations; F02.80 Dementia in other diseases classified elsewhere, unspecified severity, without behavioral disturbance, psychotic disturbance, mood disturbance, and anxiety; J44.9 Chronic obstructive pulmonary disease, unspecified; N40.0 Benign prostatic hyperplasia without lower urinary tract symptoms; Z91.81 History of falling; Z80.0 Family history of malignant neoplasm of digestive organs; Z85.46 Personal history of malignant neoplasm of prostate; Z87.891 Personal history of nicotine dependence; Z95.828 Presence of other vascular implants and grafts; W18.39XA Other fall on same level, initial encounter; Y93.89 Activity, other specified; Y92.89 Other specified places as the place of occurrence of the external cause; Y99.8 Other external cause status
CPT/HCPCS: 36415; 37619; 70450; 71045; 72170; 73501; 76000; 80048; 80053; 80076; 80307; 81001; 82140; 82270; 82306; 82607; 82728; 83036; 83540; 83550; 83615; 83735; 83880; 84443; 84484; 85007; 85025; 85027; 85045; 85610; 85730; 86850; 86900; 86901; 86920; 87040; 87426; 87804; 93005; 93306; 97163; 99152; A4565; C1713; C1769; C1894; G0378; J0171; J0690; J1100; J2250; J2405; J2470; J2704; J3490; Q9956; Q9967